=== PATIENT | male | born 1965 | race Caucasian/White ===

== ENCOUNTER 2017-07-02 21:32 | Emergency (ER) | payer MEDICARE, OTHER ==
[2017-07-02 21:38] VITALS: RESP 20; TEMP 98.3
--- NOTE | 2017-07-02 22:59 | ED ---
URI HPI - General Chief Complaint: Fever Stated Complaint: Eye Problem Time Seen by Provider: 07/02/17 21:41 Source: patient Mode of arrival: ambulatory Limitations: no limitations - History of Present Illness Initial Comments: Patient presents with nasal congestion. Patient states she's experienced sinus pressure for the past 5 days. Patient states he is taking nasal decongestion however he ran out of it and pressure worsened. States 2 days ago he felt pressure behind his right eye, was able to find some nasal decongestions at home which he took which relieved the pressure behind his eye. States today his noticed swelling and a spot near his eyebrow and in the medial corner of his right eye. Patient denies any eye pain at this time. Denies pain with eye movements. Denies changes in vision. Patient does note he had a fever of 102 2 days ago that resolved with motrin. Patient states he came in the ER tonight because was concerned about the small areas of swelling near his R eye. Patient denies sore throat, shortness breath, cough, chest pain, palpitations. Patient's blood pressure elevated on arrival, states he took his nightly dose of metoprolol and lisinopril. MD Complaint: rhinorrhea, nasal congestion, sinus pain - Related Data Home Medications Medication Instructions Recorded Confirmed Metoprolol Tartrate [Lopressor] 50 mg PO BID 03/15/14 07/02/17 Mesalamine [Delzicol] 800 mg PO TID 04/15/14 07/02/17 ALPRAZolam [Xanax] 2 mg PO TID PRN 07/02/17 07/02/17 Lisinopril [Zestril] 10 mg PO HS 07/02/17 07/02/17 Previous Rx's Medication Instructions Recorded Azithromycin 250 mg PO DAILY 5 Days #6 tablet 07/02/17 Oxymetazoline 0.05% Nasl [place] 2 spray EA NOSTRIL BID PRN #1 07/02/17 [Afrin 0.05% Nasal [place]] bottle Pseudoephedrine [Sudafed] 30 mg PO Q6H PRN 5 Days #20 tablet 07/02/17 Allergies Allergy/AdvReac Type Severity Reaction Status Date / Time Penicillins Allergy Rash/Hives Verified 07/02/17 22:00 Review of Systems ROS Statement: Those systems with pertinent positive or pertinent negative responses have been documented in the HPI. ROS Other: All systems not noted in ROS Statement are negative. Constitutional: Reports: fever. Denies: chills, weakness Eyes: Reports: other ("swelling in corner of eye"). Denies: eye pain, eye discharge, vision change ENT: Reports: congestion, other (Rhinorrhea and congestion). Denies: ear pain, throat pain, dental pain, hearing loss Respiratory: Denies: cough, dyspnea, wheezes, stridor Cardiovascular: Denies: chest pain, palpitations Endocrine: Denies: fatigue Gastrointestinal: Denies: abdominal pain, nausea, vomiting Genitourinary: Denies: frequency Musculoskeletal: Denies: back pain Skin: Denies: rash Neurological: Reports: headache (2 days ago, resolved). Denies: confusion Past Medical History Past Medical History: Asthma, Hypertension, Thyroid Disorder Additional Past Medical History / Comment(s): CROHN'S, MASS ON BASE OF TONGUE, thyroid nodule right side History of Any Multi-Drug Resistant Organisms: None Reported Past Surgical History: Bowel Resection, Cholecystectomy, Tonsillectomy Additional Past Surgical History / Comment(s): BOWEL RESCECTION W/COLOSTOMY AND LATER REVERSAL R/T CROHN'S VASECTOMY, 2003 tonsillectomy Past Anesthesia/Blood Transfusion Reactions: No Reported Reaction Additional Past Anesthesia/Blood Transfusion Reaction / Comment(s): difficult intubation Past Psychological History: Anxiety Smoking Status: Never smoker Past Alcohol Use History: None Reported Past Drug Use History: None Reported - Past Family History Mother Family Medical History: No Reported History General Exam - General Exam Comments Initial Comments: Sitting up in bed. No acute distress. Calm, pleasant, talkative, smiling. Well appearing. Does not appear in pain. Limitations: no limitations General appearance: alert, in no apparent distress Head exam: Present: atraumatic, normocephalic, normal inspection Eye exam: Present: PERRL, EOMI, other (0.5cm diameter erythema and minimal swelling around base of medial right eyebrow hairs, was central mckeon and scab. Minimal edema in area of canaliculus of R eye, no erythema or drainage. Full eye movements without pain bilaterally. No proptosis. No periorbital erythema. Conjunctiva clear bilaterally. ). Absent: scleral icterus, conjunctival injection, periorbital tenderness ENT exam: Present: normal oropharynx, mucous membranes moist, TM's normal bilaterally, other (No tenderness palpation of the sinuses.) Neck exam: Present: normal inspection, full ROM. Absent: tenderness, meningismus, lymphadenopathy Respiratory exam: Present: normal lung sounds bilaterally. Absent: respiratory distress, wheezes, rales, rhonchi, stridor Cardiovascular Exam: Present: regular rate, normal rhythm GI/Abdominal exam: Present: soft. Absent: distended, tenderness, guarding, rebound Extremities exam: Present: normal inspection Neurological exam: Present: alert, oriented X3, other (Cranial nerves II through XII grossly intact.) Psychiatric exam: Present: normal affect, normal mood Skin exam: Present: warm, dry, intact, normal color Course Vital Signs 07/02/17 21:35 Temperature 98.3 F Pulse Rate 96 Respiratory 20 Rate Blood Pressure 205/96 O2 Sat by Pulse 96 Oximetry Medical Decision Making - Medical Decision Making Patient afebrile on arrival. No antipyretics today. Symptoms are right eye may represent dacryocystitis versus Canaliculitis, no signs of overt infection at this time. Discussed monitoring of symptoms, warm compresses and gentle massage with patient. Patient states nasal congestion and headache resolved with home nasal decongestions. Patient to continue [id number] nasal decongestions, Rx Afrin and Sudafed given. We'll give prescription Azithromycin for possible sinusitis. Follow-up primary care physician. Return to ER for new or worsening symptoms. Patient understands and agrees. HTN improving at time of discharge. Patient has no signs or symptoms of stroke on exam. Discussed return to ER immediately if any signs or symptoms of stroke occur, patient understands and agrees. We'll discharge home at this time. - Lab Data Lab Results 07/02/17 Range/Units 22:50 Influenza Type A RNA Not Detected (Not Detectd) Influenza Type B (PCR) Not Detected (Not Detectd) Disposition Clinical Impression: Acute canaliculitis, Sinusitis Disposition: HOME SELF-CARE Condition: Good Instructions: Fever in Adults (ED), Sinusitis (ED) Additional Instructions: Apply warm compresses and gentle massage to the medial right eye duct. Follow primary care physician 1-2 days. Return to ER for new or worsening symptoms. Prescriptions: Azithromycin 250 mg PO DAILY 5 Days #6 tablet Oxymetazoline 0.05% Nasl [place] [Afrin 0.05% Nasal [place]] 2 spray EA NOSTRIL BID PRN #1 bottle PRN Reason: Nasal Congestion Pseudoephedrine [Sudafed] 30 mg PO Q6H PRN 5 Days #20 tablet PRN Reason: Nasal Congestion Referrals: Jeanmarie Reid DO [Primary Care Provider] - 1-2 days
[2017-07-02 23:39] VITALS: BP 156/89; PULSE 86
== END 2017-07-02 23:39 | disposition home or self-care (01) ==
LOC: EC 21:32
DX: H04.331 Acute lacrimal canaliculitis of right lacrimal passage (principal); J32.9 Chronic sinusitis, unspecified; I10 Essential (primary) hypertension; Z88.0 Allergy status to penicillin; Z79.899 Other long term (current) drug therapy
CPT/HCPCS: 87502; 99283

== ENCOUNTER 2017-08-08 01:48 | Emergency (ER) | payer MEDICARE, OTHER ==
[2017-08-08 01:54] VITALS: TEMP 97.6
[2017-08-08] MEDS ORDERED: KETOROLAC 30 MG/ML 1 ML VIAL IVP STA (02:09)
[2017-08-08] MEDS ORDERED: ONDANSETRON 4 MG/2 ML VIAL IVP STA (02:09)
[2017-08-08] MEDS ORDERED: SODIUM CHLORIDE 0.9% 1,000 ML IV STA ×2 (02:09)
[2017-08-08] MEDS ORDERED: MORPHINE SULFATE 4 MG/ML SYRINGE IV STA (02:09)
[2017-08-08] MEDS ORDERED: RX INFO: IV CONTRAST WAS GIVEN 1 EACH MISC MISCELLANE PRN (02:10)
[2017-08-08] MEDS ORDERED: MORPHINE SULFATE/PF 10MG/10ML VL ONE (02:14)
[2017-08-08] MEDS ORDERED: MORPHINE SULFATE/PF 10MG/10ML VL IVP STA ×2 (02:31→03:40)
[2017-08-08 02:48] LABS: Basophils # (A) 0.1 k/uL (0-0.2); Basophils % (A) 1 %; Eosinophils # (A) 0.1 k/uL (0-0.7); Eosinophils % (A) 2 %; HCT 40.6 % (39.0-53.0); HGB 14.3 gm/dL (13.0-17.5); Lymphocytes # (A) 1.7 k/uL (1.0-4.8); Lymphocytes % (A) 20 %; MCH 30.9 pg (25.0-35.0); MCHC 35.4 g/dL (31.0-37.0); MCV 87.5 fL (80.0-100.0); Mean Platelet Volume 6.4; Monocytes # (A) 0.3 k/uL (0-1.0); Monocytes % (A) 4 %; Neutrophils % (A) 71 %; Platelet Count 228 k/uL (150-450); RBC 4.64 m/uL (4.30-5.90); RDW 13.9 % (11.5-15.5); WBC 8.5 k/uL (3.8-10.6)
--- NOTE | 2017-08-08 02:48 | ED ---
Back Pain HPI - General Chief Complaint: Back Pain/Injury Stated Complaint: TAVARES, back pain Time Seen by Provider: 08/08/17 02:01 Source: patient, RN notes reviewed, old records reviewed Limitations: physical limitation - History of Present Illness Initial Comments: Patient is a 52-year-old male chief complaint of left sided back pain set an onset. Patient reports that he was sleeping in his chair when it said in pain woke come up. He states that he said he has had kidney stones in the past. He doesn't remember this feels like a previous kidney stone. he reports his urine is been fine. Denies any nausea or vomiting. He states that he can use new have a pain radiate to the stomach. - Related Data Home Medications Medication Instructions Recorded Confirmed Metoprolol Tartrate [Lopressor] 50 mg PO BID 03/15/14 07/02/17 Mesalamine [Delzicol] 800 mg PO TID 04/15/14 07/02/17 ALPRAZolam [Xanax] 2 mg PO TID PRN 07/02/17 07/02/17 Lisinopril [Zestril] 10 mg PO HS 07/02/17 07/02/17 Previous Rx's Medication Instructions Recorded Azithromycin 250 mg PO DAILY 5 Days #6 tablet 07/02/17 Oxymetazoline 0.05% Nasl [place] 2 spray EA NOSTRIL BID PRN #1 07/02/17 [Afrin 0.05% Nasal [place]] bottle Pseudoephedrine [Sudafed] 30 mg PO Q6H PRN 5 Days #20 tablet 07/02/17 HYDROcodone/APAP 10-325MG [[place] 1 tab PO Q6H PRN #15 tab 08/08/17 10-325] Ketorolac [Toradol] 10 mg PO Q6HR #15 tab 08/08/17 Ondansetron [Zofran] 4 mg PO Q8HR PRN #20 tab 08/08/17 Tamsulosin [Flomax] 0.4 mg PO DAILY #10 cap 08/08/17 Allergies Allergy/AdvReac Type Severity Reaction Status Date / Time Penicillins Allergy Rash/Hives Verified 08/08/17 01:54 Review of Systems ROS Statement: Those systems with pertinent positive or pertinent negative responses have been documented in the HPI. ROS Other: All systems not noted in ROS Statement are negative. Past Medical History Past Medical History: Asthma, Hypertension, Thyroid Disorder Additional Past Medical History / Comment(s): CROHN'S, MASS ON BASE OF TONGUE, thyroid nodule right side History of Any Multi-Drug Resistant Organisms: None Reported Past Surgical History: Bowel Resection, Cholecystectomy, Tonsillectomy Additional Past Surgical History / Comment(s): BOWEL RESCECTION W/COLOSTOMY AND LATER REVERSAL R/T CROHN'S VASECTOMY, 2003 tonsillectomy Past Anesthesia/Blood Transfusion Reactions: No Reported Reaction Additional Past Anesthesia/Blood Transfusion Reaction / Comment(s): difficult intubation Past Psychological History: Anxiety Smoking Status: Never smoker Past Alcohol Use History: None Reported Past Drug Use History: None Reported - Past Family History Mother Family Medical History: No Reported History General Exam - General Exam Comments Initial Comments: This is a 52 year old male. Moderate distress and discomfort. Limitations: physical limitation General appearance: alert, in no apparent distress Head exam: Present: atraumatic, normocephalic, normal inspection Eye exam: Present: normal appearance, PERRL, EOMI. Absent: scleral icterus, conjunctival injection, periorbital swelling ENT exam: Present: normal exam, mucous membranes moist Neck exam: Present: normal inspection. Absent: tenderness, meningismus, lymphadenopathy Respiratory exam: Present: normal lung sounds bilaterally. Absent: respiratory distress, wheezes, rales, rhonchi, stridor Cardiovascular Exam: Present: regular rate, normal rhythm, normal heart sounds. Absent: systolic murmur, diastolic murmur, rubs, gallop, clicks GI/Abdominal exam: Present: soft, tenderness (right CVA tenderness), normal bowel sounds. Absent: distended, guarding, rebound, rigid Extremities exam: Present: normal inspection, full ROM, normal capillary refill. Absent: tenderness, pedal edema, joint swelling, calf tenderness Back exam: Present: normal inspection Neurological exam: Present: alert, oriented X3, CN II-XII intact Psychiatric exam: Present: normal affect, normal mood Skin exam: Present: warm, dry, intact, normal color. Absent: rash Course Vital Signs 08/08/17 08/08/17 08/08/17 01:51 04:00 04:32 Temperature 97.6 F Pulse Rate 89 68 Respiratory 22 16 18 Rate Blood Pressure 196/107 161/96 O2 Sat by Pulse 97 98 Oximetry Medical Decision Making - Medical Decision Making Patient is a 52 year old male with sudden onset of left back pain. Patient arrived hypertensive. Patient was given IV fluids and labs obtained. UA is positive for RBC. No signs of infection. Evidence of a left sided distal obstruction ureteral stone. Patient was feeling better after pain medication. Will start patient on treatment for ureteral stone. All questions answered and return parameters discused. - Lab Data Result diagrams: 08/08/17 02:30 08/08/17 02:30 Lab Results 08/08/17 08/08/17 08/08/17 Range/Units 02:30 02:30 02:30 WBC 8.5 (3.8-10.6) k/uL RBC 4.64 (4.30-5.90) m/uL Hgb 14.3 (13.0-17.5) gm/dL Hct 40.6 (39.0-53.0) % MCV 87.5 (80.0-100.0) fL MCH 30.9 (25.0-35.0) pg MCHC 35.4 (31.0-37.0) g/dL RDW 13.9 (11.5-15.5) % Plt Count 228 (150-450) k/uL Neutrophils % 71 % Lymphocytes % 20 % Monocytes % 4 % Eosinophils % 2 % Basophils % 1 % Neutrophils # 6.0 (1.3-7.7) k/uL Lymphocytes # 1.7 (1.0-4.8) k/uL Monocytes # 0.3 (0-1.0) k/uL Eosinophils # 0.1 (0-0.7) k/uL Basophils # 0.1 (0-0.2) k/uL Sodium 146 H (137-145) mmol/L Potassium 4.6 (3.5-5.1) mmol/L Chloride 111 H (98-107) mmol/L Carbon Dioxide 20 L (22-30) mmol/L Anion Gap 15 mmol/L BUN 11 (9-20) mg/dL Creatinine 1.10 (0.66-1.25) mg/dL Est GFR (CKD-EPI)AfAm >90 (>60 ml/min/1.73 sqM) Est GFR (CKD-EPI)NonAf 78 (>60 ml/min/1.73 sqM) Glucose 131 H (74-99) mg/dL Calcium 9.9 (8.4-10.2) mg/dL Total Bilirubin 0.5 (0.2-1.3) mg/dL AST 26 (17-59) U/L ALT 51 (21-72) U/L Alkaline Phosphatase 52 (38-126) U/L Total Creatine Kinase 98 (55-170) U/L CK-MB (CK-2) 0.6 (0.0-2.4) ng/mL CK-MB (CK-2) Rel Index 0.6 Troponin I <0.012 (0.000-0.034) ng/mL Total Protein 7.3 (6.3-8.2) g/dL Albumin 4.4 (3.5-5.0) g/dL Amylase 42 (30-110) U/L Lipase 133 (23-300) U/L Urine Color Urine Appearance (Clear) Urine pH (5.0-8.0) Ur Specific [place] (1.001-1.035) Urine Protein (Negative) Urine Glucose (UA) (Negative) Urine Ketones (Negative) Urine Blood (Negative) Urine Nitrite (Negative) Urine Bilirubin (Negative) Urine Urobilinogen (<2.0) mg/dL Ur Leukocyte Esterase (Negative) Urine RBC (0-5) /hpf Urine WBC (0-5) /hpf Ur Squamous Epith Cells (0-4) /hpf Hyaline Casts (0-2) /lpf Urine Mucus (None) /hpf 08/08/18 Range/Units 03:46 WBC (3.8-10.6) k/uL RBC (4.30-5.90) m/uL Hgb (13.0-17.5) gm/dL Hct (39.0-53.0) % MCV (80.0-100.0) fL MCH (25.0-35.0) pg MCHC (31.0-37.0) g/dL RDW (11.5-15.5) % Plt Count (150-450) k/uL Neutrophils % % Lymphocytes % % Monocytes % % Eosinophils % % Basophils % % Neutrophils # (1.3-7.7) k/uL Lymphocytes # (1.0-4.8) k/uL Monocytes # (0-1.0) k/uL Eosinophils # (0-0.7) k/uL Basophils # (0-0.2) k/uL Sodium (137-145) mmol/L Potassium (3.5-5.1) mmol/L Chloride (98-107) mmol/L Carbon Dioxide (22-30) mmol/L Anion Gap mmol/L BUN (9-20) mg/dL Creatinine (0.66-1.25) mg/dL Est GFR (CKD-EPI)AfAm (>60 ml/min/1.73 sqM) Est GFR (CKD-EPI)NonAf (>60 ml/min/1.73 sqM) Glucose (74-99) mg/dL Calcium (8.4-10.2) mg/dL Total Bilirubin (0.2-1.3) mg/dL AST (17-59) U/L ALT (21-72) U/L Alkaline Phosphatase (38-126) U/L Total Creatine Kinase (55-170) U/L CK-MB (CK-2) (0.0-2.4) ng/mL CK-MB (CK-2) Rel Index Troponin I (0.000-0.034) ng/mL Total Protein (6.3-8.2) g/dL Albumin (3.5-5.0) g/dL Amylase (30-110) U/L Lipase (23-300) U/L Urine Color Yellow Urine Appearance Clear (Clear) Urine pH 5.5 (5.0-8.0) Ur Specific [place] 1.038 H (1.001-1.035) Urine Protein Negative (Negative) Urine Glucose (UA) Negative (Negative) Urine Ketones Negative (Negative) Urine Blood Large H (Negative) Urine Nitrite Negative (Negative) Urine Bilirubin Negative (Negative) Urine Urobilinogen <2.0 (<2.0) mg/dL Ur Leukocyte Esterase Negative (Negative) Urine RBC >182 H (0-5) /hpf Urine WBC 1 (0-5) /hpf Ur Squamous Epith Cells <1 (0-4) /hpf Hyaline Casts 3 H (0-2) /lpf Urine Mucus Rare H (None) /hpf - Radiology Data Radiology results: report reviewed Small stone in distal left ureter with left upper collecting system obstruction and mild hydronephrosis and hydrometer. This appears new compare to old CT scan. Disposition Clinical Impression: Calculus of distal left ureter, Hypertension Disposition: HOME SELF-CARE Condition: Good Instructions: Renal Colic (ED), Hydronephrosis (ED) Additional Instructions: Patient denies rest, increase fluids. Follow-up with urology. Make sure they take the medications as prescribed. Return to the emergency department if any alarming signs or symptoms occur. Prescriptions: HYDROcodone/APAP 10-325MG [[place] 10-325] 1 tab PO Q6H PRN #15 tab PRN Reason: Pain Ketorolac [Toradol] 10 mg PO Q6HR #15 tab Ondansetron [Zofran] 4 mg PO Q8HR PRN #20 tab PRN Reason: Nausea Tamsulosin [Flomax] 0.4 mg PO DAILY #10 cap Referrals: Jeanmarie Reid DO [Primary Care Provider] - 1-2 days Torres Acharya MD [STAFF PHYSICIAN] - 1-2 days Time of Disposition: 03:23
[2017-08-08 03:06] LABS: ALT 51 U/L (21-72); AST 26 U/L (17-59); Albumin 4.4 g/dL (3.5-5.0); Alkaline Phosphatase 52 U/L (38-126); Amylase 42 U/L (30-110); Anion Gap 15 mmol/L; Blood Urea Nitrogen 11 mg/dL (9-20); Calcium 9.9 mg/dL (8.4-10.2); Carbon Dioxide 20 mmol/L (22-30); Chloride 111 mmol/L (98-107); Glucose 131 mg/dL (74-99); Lipase 133 U/L (23-300); Potassium 4.6 mmol/L (3.5-5.1); Sodium 146 mmol/L (137-145); Total Bilirubin 0.5 mg/dL (0.2-1.3); Total Protein 7.3 g/dL (6.3-8.2)
[2017-08-08 03:10] LABS: Creatine Kinase 98 U/L (55-170)
--- NOTE | 2017-08-08 03:11 | CT ---
EXAMINATION TYPE: CT abdomen pelvis w con DATE OF EXAM: 08/08/2017 COMPARISON: 04/25/2017 HISTORY: Prior on synaspe, right sided low back and flank pain, history of Crohn's, renal stones, his tory of bowel resection with colostomy and reversal, IV only CT DLP: 3082.20 mGycm Automated exposure control for dose reduction was used. TECHNIQUE: Helical acquisition of images was performed from the lung bases through the pelvis. CONTRAST: Performed without Oral Contrast and with IV Contrast, patient injected with 100 mL of Isovue 300. FINDINGS: Lung bases are clear. There is no pleural effusion. There is no pericardial effusion. Liver spleen pancreas appear normal. Bile ducts are not dilated. There are clips from cholecystectomy . There is no adrenal mass. Kidneys show normal contrast opacification. There is left side mild hydrone phrosis and hydroureter. There is a 4 mm calculus in the distal left ureter. Right kidney appears nor mal. There is no retroperitoneal adenopathy. There is no ascites. I see no intestinal wall thickening. The re are no dilated loops. Bladder distends smoothly. There is no sign of appendicitis. I see no bony d estructive process. IMPRESSION: THERE IS A SMALL STONE IN THE DISTAL LEFT URETER WITH LEFT UPPER COLLECTING SYSTEM OBSTRUCTION AND ME LD HYDRONEPHROSIS AND HYDROURETER. THIS APPEARS NEW COMPARED TO OLD CT SCAN.
[2017-08-08] MEDS ORDERED: TAMSULOSIN 0.4 MG CAP.ER.24H PO STA (03:12)
[2017-08-08 03:24] LABS: Creatine Kinase MB 0.6 ng/mL (0.0-2.4); Troponin I <0.012 ng/mL (0.000-0.034)
[2017-08-08] MEDS ORDERED: MORPHINE SULFATE 4 MG/ML SYRINGE IVP STA (03:34)
[2017-08-08 04:02] VITALS: BP 161/96
[2017-08-08 04:09] LABS: Appearance,Urine Clear (Clear); Bilirubin,Urine Negative (Negative); Blood,Urine Large (Negative); Color,Urine Yellow; Glucose,Urine (UA) Negative (Negative); Hyaline Casts,Urine 3 /lpf (0-2); Ketones,Urine Negative (Negative); Leukocyte Esterase,Urine Negative (Negative); Mucus,Urine Rare /hpf; Nitrite,Urine Negative (Negative); PH, Urine 5.5 (5.0-8.0); Protein,Urine Negative (Negative); RBC,Urine >182 /hpf (0-5); Specific Gravity,Urine 1.038 (1.001-1.035); Squamous Epithelial Cell,Urine <1 /hpf (0-4); Urobilinogen,Urine <2.0 mg/dL (<2.0); WBC,Urine 1 /hpf (0-5)
[2017-08-08] MEDS ORDERED: ACET/COD 300 MG/30 MG STARTER PACK 6 TAB BTL PO STA (04:11)
[2017-08-08] MEDS ORDERED: ONDANSETRON 4 MG ODT STARTER PACK 2 TAB BTL PO STA (04:11)
[2017-08-08 04:33] VITALS: PULSE 68; RESP 18
== END 2017-08-08 04:32 | disposition home or self-care (01) ==
LOC: EC 01:48
DX: N20.1 Calculus of ureter (principal); I10 Essential (primary) hypertension; Z79.899 Other long term (current) drug therapy; Z88.0 Allergy status to penicillin; Z90.49 Acquired absence of other specified parts of digestive tract; Z53.8 Procedure and treatment not carried out for other reasons
CPT/HCPCS: 36415; 80053; 82150; 82550; 82553; 83690; 84484; 85025; 81001; 74177; 99284; 96374; 96375 ×2; 96376; 96361 ×2; J2270 ×2; J2405; J1885; S0119; Q9967

== ENCOUNTER → 2017-10-06 | Outpatient (CLI) | payer MEDICARE, OTHER ==
--- NOTE | 2017-10-06 10:39 | US ---
EXAMINATION TYPE: US thyroid st tissue head/neck DATE OF EXAM: 10/06/2017 COMPARISON: 03/20/2017 CLINICAL HISTORY: Thyroid nodule E04.1. GLAND SIZE: Right Lobe: 6.4 x 2.6 x 3.0 cm Overall Parenchyma: homogenous Left Lobe: 5.9 x 2.3 x 2.5 cm Overall Parenchyma: homogeneous Isthmus Thickness: 0.7 cm NODULES RIGHT: # of nodules measured on right: 2 1. 1.8 X 1.5 x 1.9 cm isoechoic solid nodule at the mid pole with well-defined margins; . This nod ule is taller than wide and shows intranodular vascularity. Prior size: 1.8 x 1.6 x 1.7 cm 2. 1.0 X 1.0 x 1.0 cm hypoechoic solid nodule at the lower pole with well-defined margins; . This n odule is wider than tall and shows no intranodular vascularity. Prior size: 1.1 x 0.9 x 0.9 cm LEFT: # of nodules measured on left: 0 ISTHMUS: # of nodules measured in the isthmus: 0 Bilateral neck scanned, no evidence of lymphadenopathy. Nodules as described. Only two nodules seen right lobe instead of three on last scan. IMPRESSION: Stable right lobe thyroid nodules
== END | disposition home or self-care (01) ==
LOC: RADUSWWP 06:55
PROVIDERS: ATTEND Otolaryngology
DX: E04.2 Nontoxic multinodular goiter (principal)
CPT/HCPCS: 76536

== ENCOUNTER → 2018-04-23 | Outpatient (CLI) | payer MEDICARE, OTHER ==
--- NOTE | 2018-04-23 12:45 | US ---
EXAMINATION TYPE: US thyroid st tissue head/neck DATE OF EXAM: 04/23/2018 COMPARISON: 10/06/2017 and 03/20/2017 CLINICAL HISTORY: E04.1 Thyroid Nodule. GLAND SIZE: Right Lobe: 6.8 x 2.5 x 3.1 cm Overall Parenchyma: heterogenous Left Lobe: 5.5 x 2.1 x 2.3 cm Overall Parenchyma: heterogeneous Isthmus Thickness: 0.8 cm NODULES RIGHT: # of nodules measured on right: 2 1. 1.7 x 1.7 x 1.6 cm isoechoic solid nodule at the mid pole with well-defined margins. This nodul e is wider than tall and shows no intranodular vascularity. Prior size: 1.8 x 1.5 x 1.9 cm 2. 1.4 X 1.0 x 1.2 cm hypoechoic mixed nodule at the lower pole with well-defined margins. This nod ule is wider than tall and shows no intranodular vascularity. Prior size:1.0 x 1.0 x 1.0 cm LEFT: # of nodules measured on left: 0 ISTHMUS: # of nodules measured in the isthmus: 0 Bilateral neck scanned, no evidence of lymphadenopathy. IMPRESSION: Similar size of the thyroid nodules in comparison to the prior exams with the largest measuring up to 1.7 cm in an overall enlarged thyroid gland. Continued surveillance is recommended.
== END | disposition home or self-care (01) ==
LOC: RADUSWWP 11:43
PROVIDERS: ATTEND Otolaryngology
DX: E04.2 Nontoxic multinodular goiter (principal)
CPT/HCPCS: 76536

== ENCOUNTER → 2018-10-28 | Outpatient (CLI) | payer MEDICARE, OTHER ==
--- NOTE | 2018-10-28 15:36 | US ---
EXAMINATION TYPE: US thyroid st tissue head/neck DATE OF EXAM: 10/28/2018 COMPARISON: 04/23/2018 CLINICAL HISTORY: E04.1 THYROID NODULE. GLAND SIZE: Right Lobe: 6.3 x 2.3 x 3.0 cm Overall Parenchyma: homogenous Left Lobe: 5.5 x 2.1 x 2.2 cm Overall Parenchyma: homogeneous Isthmus Thickness: 0.7 cm NODULES RIGHT: # of nodules measured on right: 2 1. 1.9 X 1.5 x 2.1 cm hypoechoic solid nodule at the mid pole with well-defined margins. This nodu le is wider than tall and shows intranodular vascularity. Prior size: 1.7 x 1.7 x 1.6 cm 2. 1.4 X 1.0 x 1.2 cm hypoechoic mixed nodule at the lower pole with well-defined margins. This nod ule is wider than tall and shows no intranodular vascularity. Prior size: 1.4 x 1.0 x 1.2 cm LEFT: # of nodules measured on left: 0 ISTHMUS: # of nodules measured in the isthmus: 0 Bilateral neck scanned, no evidence of lymphadenopathy. IMPRESSION: Stable thyromegaly and multinodular thyroid changes.
== END | disposition home or self-care (01) ==
LOC: RADUSWWP 14:53
PROVIDERS: ATTEND Otolaryngology
DX: E04.2 Nontoxic multinodular goiter (principal)
CPT/HCPCS: 76536

== ENCOUNTER 2019-09-03 11:28 | Emergency (ER) | payer MEDICARE, OTHER ==
[2019-09-03 11:38] VITALS: RESP 18; TEMP 98.1
[2019-09-03] MEDS ORDERED: SODIUM CHLORIDE 0.9% 1,000 ML IV STA (12:18)
--- NOTE | 2019-09-03 12:36 | ED ---
General Adult HPI - General Chief complaint: Recheck/Abnormal Lab/Rx Stated complaint: poss med reaction Time Seen by Provider: 09/03/19 12:02 Source: patient Mode of arrival: ambulatory Limitations: no limitations - History of Present Illness Initial comments: Patient is a 54-year-old male, with history of anxiety, presenting to the emergency department with multiple complaints. Patient states the symptoms started approximately 1-2 weeks ago with a scratchy throat as well as an upset stomach. Patient states he coughed a little and noticed a small amount of blood in his sputum and got concerned. Patient states he called his PCP, Dr. Jones, who called him a prescription for Cipro. Patient stated taking Cipro a few days and started feeling better. Patient states then he started having dryness of his mouth as well as an upset stomach. Patient has history of Crohn's. Patient states he has been burping a lot and his stomach has been rumbling a lot. He denies any abdominal pain, nausea, vomiting. He is having diarrhea but states this is normal for him. Patient states he is getting concern is getting really dehydrated. Patient also stated that his very healthy cat all of a sudden developed organ failure and in the last few days and is concerned that he is having weird symptoms as well. Patient states she's been having hard time sleeping secondary to his anxiety and his GERD symptoms. Patient denies chest pain, shortness of breath, cough, headache, dizziness. He denies fever or chills. He has no other complaints at this time. - Related Data Home Medications Medication Instructions Recorded Confirmed Metoprolol Tartrate [Lopressor] 50 mg PO BID 03/15/14 07/02/17 Mesalamine [Delzicol] 800 mg PO TID 04/15/14 07/02/17 ALPRAZolam [Xanax] 2 mg PO TID PRN 07/02/17 07/02/17 Lisinopril [Zestril] 10 mg PO HS 07/02/17 07/02/17 Previous Rx's Medication Instructions Recorded Azithromycin 250 mg PO DAILY 5 Days #6 tablet 07/02/17 Oxymetazoline 0.05% Nasl [place] 2 spray EA NOSTRIL BID PRN #1 07/02/17 [Afrin 0.05% Nasal [place]] bottle Pseudoephedrine [Sudafed] 30 mg PO Q6H PRN 5 Days #20 tablet 07/02/17 HYDROcodone/APAP 10-325MG [[place] 1 tab PO Q6H PRN #15 tab 08/08/17 10-325] Ketorolac [Toradol] 10 mg PO Q6HR #15 tab 08/08/17 Ondansetron [Zofran] 4 mg PO Q8HR PRN #20 tab 08/08/17 Tamsulosin [Flomax] 0.4 mg PO DAILY #10 cap 08/08/17 Allergies Allergy/AdvReac Type Severity Reaction Status Date / Time Penicillins Allergy Rash/Hives Verified 09/03/19 11:38 Review of Systems ROS Statement: Those systems with pertinent positive or pertinent negative responses have been documented in the HPI. ROS Other: All systems not noted in ROS Statement are negative. Past Medical History Past Medical History: Asthma, Hypertension, Thyroid Disorder Additional Past Medical History / Comment(s): CROHN'S, MASS ON BASE OF TONGUE, thyroid nodule right side History of Any Multi-Drug Resistant Organisms: None Reported Past Surgical History: Bowel Resection, Cholecystectomy, Tonsillectomy Additional Past Surgical History / Comment(s): BOWEL RESCECTION W/COLOSTOMY AND LATER REVERSAL R/T CROHN'S VASECTOMY, 2003 tonsillectomy Past Anesthesia/Blood Transfusion Reactions: No Reported Reaction Additional Past Anesthesia/Blood Transfusion Reaction / Comment(s): difficult intubation Past Psychological History: Anxiety Smoking Status: Never smoker Past Alcohol Use History: None Reported Past Drug Use History: None Reported - Past Family History Mother Family Medical History: No Reported History General Exam - General Exam Comments Initial Comments: GENERAL: Patient appears anxious, in no acute distress. HEAD: Atraumatic, normocephalic. EYES: Pupils equal round and reactive to light, extraocular movements intact, sclera anicteric, conjunctiva are normal. ENT: TMs normal, nares patent, oropharynx clear without exudates. Moist mucous me mbranes. NECK: Normal range of motion, supple without lymphadenopathy or JVD. LUNGS: Breath sounds clear to auscultation bilaterally and equal. No wheezes rales or rhonchi. HEART: Regular rate and rhythm without murmurs, rubs or gallops. ABDOMEN: Soft, nontender, normoactive bowel sounds. No guarding, no rebound. No masses appreciated. : Deferred EXTREMITIES: Normal range of motion, no pitting or edema. No clubbing or cyanosis. NEUROLOGICAL: Normal speech, normal gait. PSYCH: Normal mood, normal affect. SKIN: Warm, Dry, normal turgor, no rashes or lesions noted. Limitations: no limitations Course Vital Signs 09/03/19 11:33 Temperature 98.1 F Pulse Rate 93 Respiratory 18 Rate Blood Pressure 197/124 O2 Sat by Pulse 98 Oximetry Medical Decision Making - Medical Decision Making Patient is 54-year-old male, history of anxiety, presenting with multiple complaints including sore throat, diarrhea, signs of dehydration. Patient arrived hypertensive but also very anxious. Rest of vitals are normal. No history of fever, chills, cough, shortness of breath. His exam is unremarkable. Lab work shows no acute abnormalities. Patient was given fluids and Zofran. I discussed with patient that his symptoms could be related to a viral illness. He is stable for discharge and he is in agreement with this plan of care. He will follow up with his PCP as needed. Return parameters were discussed with the patient and he verbalized understanding. Case discussed with Dr. Murry. - Lab Data Result diagrams: 09/03/19 12:35 09/03/19 12:35 Lab Results 09/03/19 09/03/19 Range/Units 12:35 12:35 WBC 8.2 (3.8-10.6) k/uL RBC 4.57 (4.30-5.90) m/uL Hgb 14.1 (13.0-17.5) gm/dL Hct 41.5 (39.0-53.0) % MCV 90.7 (80.0-100.0) fL MCH 30.7 (25.0-35.0) pg MCHC 33.9 (31.0-37.0) g/dL RDW 13.4 (11.5-15.5) % Plt Count 206 (150-450) k/uL Neutrophils % 75 % Lymphocytes % 17 % Monocytes % 4 % Eosinophils % 2 % Basophils % 1 % Neutrophils # 6.2 (1.3-7.7) k/uL Lymphocytes # 1.4 (1.0-4.8) k/uL Monocytes # 0.3 (0-1.0) k/uL Eosinophils # 0.2 (0-0.7) k/uL Basophils # 0.1 (0-0.2) k/uL Sodium 141 (137-145) mmol/L Potassium 3.6 (3.5-5.1) mmol/L Chloride 108 H (98-107) mmol/L Carbon Dioxide 24 (22-30) mmol/L Anion Gap 9 mmol/L BUN 9 (9-20) mg/dL Creatinine 0.79 (0.66-1.25) mg/dL Est GFR (CKD-EPI)AfAm >90 (>60 ml/min/1.73 sqM) Est GFR (CKD-EPI)NonAf >90 (>60 ml/min/1.73 sqM) Glucose 101 H (74-99) mg/dL Calcium 9.7 (8.4-10.2) mg/dL Total Bilirubin 0.9 (0.2-1.3) mg/dL AST 33 (17-59) U/L ALT 47 (4-49) U/L Alkaline Phosphatase 54 (38-126) U/L Total Protein 7.5 (6.3-8.2) g/dL Albumin 4.6 (3.5-5.0) g/dL Disposition Clinical Impression: Dehydration, History of Crohn's disease, Diarrhea Disposition: HOME SELF-CARE Condition: Stable Instructions (If sedation given, give patient instructions): Dehydration (ED) Additional Instructions: Please return to the Emergency Department if symptoms worsen or any other concerns. Follow-up with PCP as needed. Is patient prescribed a controlled substance at d/c from ED?: No Referrals: Jeanmarie Reid DO [Primary Care Provider] - 1-2 days
[2019-09-03] MEDS ORDERED: ONDANSETRON 4 MG/2 ML VIAL IVP STA (12:42)
[2019-09-03 12:46] LABS: Basophils # (A) 0.1 k/uL (0-0.2); Basophils % (A) 1 %; Eosinophils # (A) 0.2 k/uL (0-0.7); Eosinophils % (A) 2 %; HCT 41.5 % (39.0-53.0); HGB 14.1 gm/dL (13.0-17.5); Lymphocytes # (A) 1.4 k/uL (1.0-4.8); Lymphocytes % (A) 17 %; MCH 30.7 pg (25.0-35.0); MCHC 33.9 g/dL (31.0-37.0); MCV 90.7 fL (80.0-100.0); Mean Platelet Volume 7.3; Monocytes # (A) 0.3 k/uL (0-1.0); Monocytes % (A) 4 %; Neutrophils # (A) 6.2 k/uL (1.3-7.7); Neutrophils % (A) 75 %; Platelet Count 206 k/uL (150-450); RBC 4.57 m/uL (4.30-5.90); RDW 13.4 % (11.5-15.5); WBC 8.2 k/uL (3.8-10.6)
[2019-09-03 12:57] LABS: ALT 47 U/L (4-49); AST 33 U/L (17-59); African American GFR (CKD) >90 (>60 ml/min/1.73 sqM); Albumin 4.6 g/dL (3.5-5.0); Alkaline Phosphatase 54 U/L (38-126); Anion Gap 9 mmol/L; Blood Urea Nitrogen 9 mg/dL (9-20); Calcium 9.7 mg/dL (8.4-10.2); Carbon Dioxide 24 mmol/L (22-30); Chloride 108 mmol/L (98-107); Glucose 101 mg/dL (74-99); Non-African American GFR(CKD) >90 (>60 ml/min/1.73 sqM); Potassium 3.6 mmol/L (3.5-5.1); Sodium 141 mmol/L (137-145); Total Bilirubin 0.9 mg/dL (0.2-1.3); Total Protein 7.5 g/dL (6.3-8.2)
[2019-09-03 14:14] VITALS: BP 151/90; PULSE 75
== END 2019-09-03 14:12 | disposition home or self-care (01) ==
LOC: EC 11:28
DX: E86.0 Dehydration (principal); R19.7 Diarrhea, unspecified; F41.9 Anxiety disorder, unspecified; J02.9 Acute pharyngitis, unspecified; I10 Essential (primary) hypertension; Z88.0 Allergy status to penicillin; Z79.899 Other long term (current) drug therapy; Z90.49 Acquired absence of other specified parts of digestive tract; Z87.19 Personal history of other diseases of the digestive system
CPT/HCPCS: 36415; 80053; 85025; 87040; 99284; 96374; 96361; J2405

== ENCOUNTER 2019-09-07 16:07 | Emergency (ER) | payer MEDICARE, OTHER ==
[2019-09-07 16:14] VITALS: TEMP 97.3
[2019-09-07] MEDS ORDERED: hydrALAZINE HCL 20 MG/ML 1 ML VIAL IVP STA (16:54)
[2019-09-07] MEDS ORDERED: LORazepam 2 MG/ML INJ IV STA (16:54)
--- NOTE | 2019-09-07 16:58 | ED ---
General Adult HPI - General Chief complaint: Neuro Symptoms/Deficit Stated complaint: dizziness/facial tingling Time Seen by Provider: 09/07/19 16:10 Source: patient, RN notes reviewed, old records reviewed Mode of arrival: wheelchair Limitations: no limitations - History of Present Illness Initial comments: This is a 54-year-old male with past medical history significant for Crohn's disease as well as anxiety and hypertension. Patient states he has had weird symptoms ever since . Patient states he has had the feeling that his throat was dry couldn't swallow also drinks a lot of fluid. Patient also believes he is dehydrated so is also been continuing to increase his fluid intake. Patient states he has Crohn's so he always has diarrhea it's no worse than normal however. Patient states the reason he came in today was because he was feeling very anxious and lightheaded and had some tingling on the right side of his face and tingling in his arm on the right no deficit was noted he stated he did not lose any ability to sense and he did not lose any strength. Patient denies any chest pain or palpitations. Patient denies any headache currently. Patient denies any injury. Patient denies any fever chills. Patient states around time his cat and he thinks the cat of some toxicity and he is worried that maybe he has the same toxicity and his body. Patient does not give a straightforward history he is all over the place remembering bits and pieces of symptoms that occurred over the last 2 weeks - Related Data Home Medications Medication Instructions Recorded Confirmed Metoprolol Tartrate [Lopressor] 50 mg PO BID 03/15/14 07/02/17 Mesalamine [Delzicol] 800 mg PO TID 04/15/14 07/02/17 ALPRAZolam [Xanax] 2 mg PO TID PRN 07/02/17 07/02/17 Lisinopril [Zestril] 10 mg PO HS 07/02/17 07/02/17 Previous Rx's Medication Instructions Recorded Azithromycin 250 mg PO DAILY 5 Days #6 tablet 07/02/17 Oxymetazoline 0.05% Nasl [place] 2 spray EA NOSTRIL BID PRN #1 07/02/17 [Afrin 0.05% Nasal [place]] bottle Pseudoephedrine [Sudafed] 30 mg PO Q6H PRN 5 Days #20 tablet 07/02/17 HYDROcodone/APAP 10-325MG [[place] 1 tab PO Q6H PRN #15 tab 08/08/17 10-325] Ketorolac [Toradol] 10 mg PO Q6HR #15 tab 08/08/17 Ondansetron [Zofran] 4 mg PO Q8HR PRN #20 tab 08/08/17 Tamsulosin [Flomax] 0.4 mg PO DAILY #10 cap 08/08/17 Allergies Allergy/AdvReac Type Severity Reaction Status Date / Time Penicillins Allergy Rash/Hives Verified 09/03/19 11:38 Review of Systems ROS Statement: Those systems with pertinent positive or pertinent negative responses have been documented in the HPI. ROS Other: All systems not noted in ROS Statement are negative. Past Medical History Past Medical History: Asthma, Hypertension, Thyroid Disorder Additional Past Medical History / Comment(s): CROHN'S, MASS ON BASE OF TONGUE, thyroid nodule right side History of Any Multi-Drug Resistant Organisms: None Reported Past Surgical History: Bowel Resection, Cholecystectomy, Tonsillectomy Additional Past Surgical History / Comment(s): BOWEL RESCECTION W/COLOSTOMY AND LATER REVERSAL R/T CROHN'S VASECTOMY, 2003 tonsillectomy Past Anesthesia/Blood Transfusion Reactions: No Reported Reaction Additional Past Anesthesia/Blood Transfusion Reaction / Comment(s): difficult intubation Past Psychological History: Anxiety Smoking Status: Never smoker Past Alcohol Use History: None Reported Past Drug Use History: None Reported - Past Family History Mother Family Medical History: No Reported History General Exam - General Exam Comments Initial Comments: GENERAL: Patient is well-developed and well-nourished. Patient is nontoxic and well-hydrated and is in mild distress. ENT: Neck is soft and supple. No significant lymphadenopathy is noted. Oropharynx is clear. Moist mucous membranes. Neck has full range of motion without eliciting any pain. EYES: The sclera were anicteric and conjunctiva were pink and moist. Extraocular movements were intact and pupils were equal round and reactive to light. Eyelids were unremarkable. PULMONARY: Unlabored respirations. Good breath sounds bilaterally. No audible rales rhonchi or wheezing was noted. CARDIOVASCULAR: There is a regular rate and rhythm without any murmurs gallops or rubs. ABDOMEN: Soft and nontender with normal bowel sounds. SKIN: Skin is clear with no lesions or rashes and otherwise unremarkable. NEUROLOGIC: Patient is alert and oriented x3. Cranial nerves II through XII are grossly intact. Motor and sensory are also intact. Normal speech, volume and content. Symmetrical smile. MUSCULOSKELETAL: Normal extremities with adequate strength and full range of motion. No lower extremity swelling or edema. No calf tenderness. LYMPHATICS: No significant lymphadenopathy is noted PSYCHIATRIC: Patient is anxious Limitations: no limitations Course Vital Signs 09/07/19 09/07/19 09/07/19 16:08 16:42 17:00 Temperature 97.3 F L Pulse Rate 94 87 Respiratory 18 18 Rate Blood Pressure 189/100 184/101 171/116 O2 Sat by Pulse 97 96 96 Oximetry 09/07/19 09/07/19 09/07/19 17:08 17:30 18:13 Temperature Pulse Rate 90 124 H Respiratory 18 16 Rate Blood Pressure 163/102 163/102 169/107 O2 Sat by Pulse 96 98 Oximetry 09/07/19 09/07/19 18:33 19:04 Temperature Pulse Rate 111 H 96 Respiratory 18 Rate Blood Pressure 163/98 O2 Sat by Pulse 97 Oximetry Medical Decision Making - Medical Decision Making EKG shows normal sinus rhythm at 80 bpm MI interval 158 QRS 100 QT interval 386 QTC is 467 per patient's EKG shows no ST segment elevation. Patient received hydralazine in the emergency department as well as labetalol. Patient's blood pressure came down and the symptoms went away entirely. Patient states he also thinks he was quite anxious. Patient told me at this time there was a second blood pressure medication but his doctor fairly recently stopped. Patient also indicated that he was under quite a bit of stress lately. - Lab Data Result diagrams: 09/07/19 17:00 09/07/19 17:00 Lab Results 09/07/19 09/07/19 09/07/19 Range/Units 17:00 17:00 17:00 WBC 9.0 (3.8-10.6) k/uL RBC 4.52 (4.30-5.90) m/uL Hgb 13.7 (13.0-17.5) gm/dL Hct 40.3 (39.0-53.0) % MCV 89.1 (80.0-100.0) fL MCH 30.2 (25.0-35.0) pg MCHC 33.9 (31.0-37.0) g/dL RDW 13.5 (11.5-15.5) % Plt Count 239 (150-450) k/uL Neutrophils % 73 % Lymphocytes % 18 % Monocytes % 5 % Eosinophils % 2 % Basophils % 1 % Neutrophils # 6.5 (1.3-7.7) k/uL Lymphocytes # 1.6 (1.0-4.8) k/uL Monocytes # 0.4 (0-1.0) k/uL Eosinophils # 0.1 (0-0.7) k/uL Basophils # 0.1 (0-0.2) k/uL PT 10.2 (9.0-12.0) sec INR 1.0 (<1.2) APTT 25.3 (22.0-30.0) sec Sodium 140 (137-145) mmol/L Potassium 3.3 L (3.5-5.1) mmol/L Chloride 108 H (98-107) mmol/L Carbon Dioxide 23 (22-30) mmol/L Anion Gap 9 mmol/L BUN 7 L (9-20) mg/dL Creatinine 0.79 (0.66-1.25) mg/dL Est GFR (CKD-EPI)AfAm >90 (>60 ml/min/1.73 sqM) Est GFR (CKD-EPI)NonAf >90 (>60 ml/min/1.73 sqM) Glucose 100 H (74-99) mg/dL Calcium 9.8 (8.4-10.2) mg/dL Magnesium 1.9 (1.6-2.3) mg/dL Total Bilirubin 0.9 (0.2-1.3) mg/dL AST 32 (17-59) U/L ALT 46 (4-49) U/L Alkaline Phosphatase 56 (38-126) U/L Troponin I (0.000-0.034) ng/mL Total Protein 7.4 (6.3-8.2) g/dL Albumin 4.6 (3.5-5.0) g/dL 09/07/19 Range/Units 17:00 WBC (3.8-10.6) k/uL RBC (4.30-5.90) m/uL Hgb (13.0-17.5) gm/dL Hct (39.0-53.0) % MCV (80.0-100.0) fL MCH (25.0-35.0) pg MCHC (31.0-37.0) g/dL RDW (11.5-15.5) % Plt Count (150-450) k/uL Neutrophils % % Lymphocytes % % Monocytes % % Eosinophils % % Basophils % % Neutrophils # (1.3-7.7) k/uL Lymphocytes # (1.0-4.8) k/uL Monocytes # (0-1.0) k/uL Eosinophils # (0-0.7) k/uL Basophils # (0-0.2) k/uL PT (9.0-12.0) sec INR (<1.2) APTT (22.0-30.0) sec Sodium (137-145) mmol/L Potassium (3.5-5.1) mmol/L Chloride (98-107) mmol/L Carbon Dioxide (22-30) mmol/L Anion Gap mmol/L BUN (9-20) mg/dL Creatinine (0.66-1.25) mg/dL Est GFR (CKD-EPI)AfAm (>60 ml/min/1.73 sqM) Est GFR (CKD-EPI)NonAf (>60 ml/min/1.73 sqM) Glucose (74-99) mg/dL Calcium (8.4-10.2) mg/dL Magnesium (1.6-2.3) mg/dL Total Bilirubin (0.2-1.3) mg/dL AST (17-59) U/L ALT (4-49) U/L Alkaline Phosphatase (38-126) U/L Troponin I <0.012 (0.000-0.034) ng/mL Total Protein (6.3-8.2) g/dL Albumin (3.5-5.0) g/dL Disposition Clinical Impression: Hypertensive urgency Disposition: HOME SELF-CARE Condition: Good Instructions (If sedation given, give patient instructions): Hypertension (ED) Additional Instructions: Patient should take his blood pressure before every meal before bed and documented so his doctor can follow-up with him. Patient just take metoprolol 1-1/2 tabs a set of 1 in the morning and at night. Is patient prescribed a controlled substance at d/c from ED?: No Referrals: Jeanmarie Reid DO [Primary Care Provider] - 1-2 days Time of Disposition: 19:42
[2019-09-07 17:13] LABS: Basophils # (A) 0.1 k/uL (0-0.2); Basophils % (A) 1 %; Eosinophils # (A) 0.1 k/uL (0-0.7); Eosinophils % (A) 2 %; HCT 40.3 % (39.0-53.0); HGB 13.7 gm/dL (13.0-17.5); Lymphocytes # (A) 1.6 k/uL (1.0-4.8); Lymphocytes % (A) 18 %; MCH 30.2 pg (25.0-35.0); MCHC 33.9 g/dL (31.0-37.0); MCV 89.1 fL (80.0-100.0); Mean Platelet Volume 6.9; Monocytes # (A) 0.4 k/uL (0-1.0); Monocytes % (A) 5 %; Neutrophils # (A) 6.5 k/uL (1.3-7.7); Neutrophils % (A) 73 %; Platelet Count 239 k/uL (150-450); RBC 4.52 m/uL (4.30-5.90); RDW 13.5 % (11.5-15.5)
[2019-09-07 17:22] LABS: ALT 46 U/L (4-49); AST 32 U/L (17-59); African American GFR (CKD) >90 (>60 ml/min/1.73 sqM); Albumin 4.6 g/dL (3.5-5.0); Alkaline Phosphatase 56 U/L (38-126); Anion Gap 9 mmol/L; Blood Urea Nitrogen 7 mg/dL (9-20); Calcium 9.8 mg/dL (8.4-10.2); Carbon Dioxide 23 mmol/L (22-30); Chloride 108 mmol/L (98-107); Glucose 100 mg/dL (74-99); Magnesium 1.9 mg/dL (1.6-2.3); Non-African American GFR(CKD) >90 (>60 ml/min/1.73 sqM); Partial Thromboplastin Time 25.3 sec (22.0-30.0); Potassium 3.3 mmol/L (3.5-5.1); Prothrombin Time 10.2 sec (9.0-12.0); Sodium 140 mmol/L (137-145); Total Bilirubin 0.9 mg/dL (0.2-1.3); Total Protein 7.4 g/dL (6.3-8.2)
[2019-09-07] MEDS ORDERED: SODIUM CHLORIDE 0.9% 1,000 ML IV STA (18:27)
[2019-09-07] MEDS ORDERED: LABETALOL 5 MG/ML VIAL MDV IVP STA (18:27)
[2019-09-07 19:05] VITALS: BP 163/98; PULSE 96; RESP 18
== END 2019-09-07 20:10 | disposition home or self-care (01) ==
LOC: EC 16:07
DX: I16.0 Hypertensive urgency (principal); K50.90 Crohn's disease, unspecified, without complications; Z79.899 Other long term (current) drug therapy; Z88.0 Allergy status to penicillin; Z90.49 Acquired absence of other specified parts of digestive tract; Z98.890 Other specified postprocedural states
CPT/HCPCS: 36415; 93005; 80053; 83735; 84484; 85025; 85610; 85730; 99284; 96374; 96375 ×2; 96361; J2060; J0360

== ENCOUNTER 2019-11-24 17:45 | Emergency (ER) | payer MEDICARE, OTHER ==
[2019-11-24 19:36] LABS: Basophils # (A) 0.1 k/uL (0-0.2); Basophils % (A) 1 %; Eosinophils # (A) 0.2 k/uL (0-0.7); Eosinophils % (A) 2 %; HCT 42.2 % (39.0-53.0); HGB 13.8 gm/dL (13.0-17.5); Lymphocytes # (A) 1.5 k/uL (1.0-4.8); Lymphocytes % (A) 16 %; MCHC 32.7 g/dL (31.0-37.0); MCV 91.9 fL (80.0-100.0); Monocytes # (A) 0.3 k/uL (0-1.0); Monocytes % (A) 4 %; Neutrophils # (A) 7.4 k/uL (1.3-7.7); Neutrophils % (A) 76 %; Platelet Count 190 k/uL (150-450); RBC 4.59 m/uL (4.30-5.90); RDW 13.9 % (11.5-15.5); WBC 9.8 k/uL (3.8-10.6)
[2019-11-24 19:44] LABS: ALT 39 U/L (4-49); AST 31 U/L (17-59); African American GFR (CKD) >90 (>60 ml/min/1.73 sqM); Albumin 4.4 g/dL (3.5-5.0); Alkaline Phosphatase 49 U/L (38-126); Anion Gap 9 mmol/L; Blood Urea Nitrogen 12 mg/dL (9-20); Carbon Dioxide 22 mmol/L (22-30); Chloride 110 mmol/L (98-107); Glucose 102 mg/dL (74-99); Magnesium 1.7 mg/dL (1.6-2.3); Non-African American GFR(CKD) >90 (>60 ml/min/1.73 sqM); Potassium 3.8 mmol/L (3.5-5.1); Sodium 141 mmol/L (137-145); Total Bilirubin 0.6 mg/dL (0.2-1.3); Total Protein 7.1 g/dL (6.3-8.2)
--- NOTE | 2019-11-24 19:52 | XR ---
EXAMINATION TYPE: XR chest 2V DATE OF EXAM: 11/24/2019 CLINICAL HISTORY: Hemoptysis since . TECHNIQUE: Frontal and lateral views of the chest are obtained. COMPARISON: Chest x-ray September 16, 2014 FINDINGS: There is no new suspicious focal air space opacity, pleural effusion, or pneumothorax seen . Small amount of fluid right midlung fissure redemonstrated stable. The cardiac silhouette size tiffanie ins within normal limits. The osseous structures are intact. Cholecystectomy clips redemonstrated. IMPRESSION: No new acute cardiopulmonary process.
--- NOTE | 2019-11-24 19:54 | XR ---
EXAMINATION TYPE: XR KUB DATE OF EXAM: 11/24/2019 7:44 PM CLINICAL HISTORY: Hemoptysis and pain. TECHNIQUE: Two Upright KUB images of the abdomen are obtained. COMPARISON: Abdominal x-ray April 25, 2017. CT abdomen and pelvis August 08, 2017. FINDINGS: Some possibly of bowel gas with scattered gas in nondistended small and large bowel loops. Cholecystectomy clips are redemonstrated. Lung bases remain clear. No pneumoperitoneum or suspicious calcifications. Visualized osseous structures are intact. Stable left pelvic phlebolith. IMPRESSION: Overall nonobstructive bowel gas pattern remains present.
--- NOTE | 2019-11-24 21:50 | ED ---
General Adult HPI - General Chief complaint: Shortness of Breath Stated complaint: Spitting up blood Time Seen by Provider: 11/24/19 18:12 Source: patient, RN notes reviewed Mode of arrival: ambulatory Limitations: no limitations - History of Present Illness Initial comments: This is a 54-year-old male with a history of Crohn's disease who presents with complaints of intermittent episodes of this pain of blood he states is bright red he seems to be having more episodes of this in frequency. He's had ENT evaluation and has a surgical evaluation pending for January 02 of this year. It persisted patient is very anxious from this. He denies any lightheadedness or dizziness however no fevers chills sweats occasional abdominal pain. He denies any overt blood per rectum. He does say he's been having appears be an oily film on a toilet bowl at times a. Also of note he does have a history of a cholecystectomy. He has had previous surgery for the Crohn's disease. - Related Data Home Medications Medication Instructions Recorded Confirmed Metoprolol Tartrate [Lopressor] 50 mg PO BID 03/15/14 11/24/19 Mesalamine [Delzicol] 800 mg PO TID 04/15/14 11/24/19 Lisinopril [Zestril] 10 mg PO HS 07/02/17 11/24/19 ALPRAZolam [Xanax] 1 mg PO HS PRN 11/24/19 11/24/19 Cetirizine HCl 10 mg PO HS 11/24/19 11/24/19 Omeprazole 20 mg PO BID 11/24/19 11/24/19 Turmeric Root Extract [Turmeric] 500 mg PO HS 11/24/19 11/24/19 Allergies Allergy/AdvReac Type Severity Reaction Status Date / Time Penicillins Allergy Rash/Hives Verified 11/24/19 20:10 Review of Systems ROS Statement: Those systems with pertinent positive or pertinent negative responses have been documented in the HPI. ROS Other: All systems not noted in ROS Statement are negative. Past Medical History Past Medical History: Asthma, Hypertension, Thyroid Disorder Additional Past Medical History / Comment(s): CROHN'S, MASS ON BASE OF TONGUE, thyroid nodule right side History of Any Multi-Drug Resistant Organisms: None Reported Past Surgical History: Bowel Resection, Cholecystectomy, Orthopedic Surgery, Tonsillectomy Additional Past Surgical History / Comment(s): BOWEL RESCECTION W/COLOSTOMY AND LATER REVERSAL R/T CROHN'S VASECTOMY, 2003 tonsillectomy Past Anesthesia/Blood Transfusion Reactions: No Reported Reaction Additional Past Anesthesia/Blood Transfusion Reaction / Comment(s): difficult intubation Past Psychological History: Anxiety Smoking Status: Never smoker Past Alcohol Use History: None Reported Past Drug Use History: None Reported - Past Family History Mother Family Medical History: No Reported History General Exam - General Exam Comments Initial Comments: This is a well-developed well-nourished awake alert oriented 3 male Limitations: no limitations General appearance: alert, anxious Head exam: Present: atraumatic, normocephalic, normal inspection Eye exam: Present: normal appearance, PERRL, EOMI. Absent: scleral icterus, conjunctival injection, periorbital swelling ENT exam: Present: normal exam, mucous membranes moist Neck exam: Present: normal inspection. Absent: tenderness, meningismus, lymphadenopathy Respiratory exam: Present: normal lung sounds bilaterally. Absent: respiratory distress, wheezes, rales, rhonchi, stridor Cardiovascular Exam: Present: regular rate, normal rhythm, normal heart sounds. Absent: systolic murmur, diastolic murmur, rubs, gallop, clicks GI/Abdominal exam: Present: soft, normal bowel sounds. Absent: distended, tenderness, guarding, rebound, rigid Extremities exam: Present: normal inspection, full ROM, normal capillary refill. Absent: tenderness, pedal edema, joint swelling, calf tenderness Back exam: Present: normal inspection Neurological exam: Present: alert, oriented X3, CN II-XII intact Psychiatric exam: Present: normal affect, normal mood Skin exam: Present: warm, dry, intact, normal color. Absent: rash Course Vital Signs 11/24/19 11/24/19 18:00 19:26 Temperature 98.3 F Pulse Rate 95 89 Respiratory 18 18 Rate Blood Pressure 179/113 155/95 O2 Sat by Pulse 98 96 Oximetry - Reevaluation(s) Reevaluation #1: 11/24/19 21:51 The patient did decline have rectal exam performed by me we did however get a stool sample was sent for occult blood testing. Medical Decision Making - Medical Decision Making I did a long discussion with patient has regarding findings. Patient's Hemoccult test was positive hours lab work is within normal limits with respect to his hemoglobin. Did discuss the case with Dr. Alatorre. The patient will get scheduled for an EGD on November 28. The patient will call the office tomorrow to get as scheduled. - Lab Data Result diagrams: 11/24/19 19:24 11/24/19 19:24 Lab Results 11/24/19 11/24/19 11/24/19 Range/Units 19:24 19:24 21:36 WBC 9.8 (3.8-10.6) k/uL RBC 4.59 (4.30-5.90) m/uL Hgb 13.8 (13.0-17.5) gm/dL Hct 42.2 (39.0-53.0) % MCV 91.9 (80.0-100.0) fL MCH 30.0 (25.0-35.0) pg MCHC 32.7 (31.0-37.0) g/dL RDW 13.9 (11.5-15.5) % Plt Count 190 (150-450) k/uL Neutrophils % 76 % Lymphocytes % 16 % Monocytes % 4 % Eosinophils % 2 % Basophils % 1 % Neutrophils # 7.4 (1.3-7.7) k/uL Lymphocytes # 1.5 (1.0-4.8) k/uL Monocytes # 0.3 (0-1.0) k/uL Eosinophils # 0.2 (0-0.7) k/uL Basophils # 0.1 (0-0.2) k/uL Sodium 141 (137-145) mmol/L Potassium 3.8 (3.5-5.1) mmol/L Chloride 110 H (98-107) mmol/L Carbon Dioxide 22 (22-30) mmol/L Anion Gap 9 mmol/L BUN 12 (9-20) mg/dL Creatinine 0.79 (0.66-1.25) mg/dL Est GFR (CKD-EPI)AfAm >90 (>60 ml/min/1.73 sqM) Est GFR (CKD-EPI)NonAf >90 (>60 ml/min/1.73 sqM) Glucose 102 H (74-99) mg/dL Calcium 10.0 (8.4-10.2) mg/dL Magnesium 1.7 (1.6-2.3) mg/dL Total Bilirubin 0.6 (0.2-1.3) mg/dL AST 31 (17-59) U/L ALT 39 (4-49) U/L Alkaline Phosphatase 49 (38-126) U/L Total Protein 7.1 (6.3-8.2) g/dL Albumin 4.4 (3.5-5.0) g/dL Stool Occult Blood Positive (Negative) - Radiology Data Radiology results: report reviewed, image reviewed Disposition Clinical Impression: Hematemesis of unknown cause, Crohn's disease Disposition: HOME SELF-CARE Condition: Good Instructions (If sedation given, give patient instructions): Hematemesis (ED) Additional Instructions: Continue with her current medication. Call Dr. Alatorre's office tomorrow to bryce jackson an EGD for November 28 of this year. Is patient prescribed a controlled substance at d/c from ED?: No Referrals: Jeanmarie Reid DO [Primary Care Provider] - 1-2 days Víctor Alatorre MD [Medical Doctor] - 1-2 days
[2019-11-25 10:24] VITALS: BP 157/93; PULSE 93; RESP 18; TEMP 98
== END 2019-11-24 22:51 | disposition home or self-care (01) ==
LOC: EC 17:45
DX: K92.0 Hematemesis (principal); K50.90 Crohn's disease, unspecified, without complications; I10 Essential (primary) hypertension; F41.9 Anxiety disorder, unspecified; Z79.899 Other long term (current) drug therapy; Z79.1 Long term (current) use of non-steroidal anti-inflammatories (NSAID); Z88.0 Allergy status to penicillin; Z90.49 Acquired absence of other specified parts of digestive tract; Z93.3 Colostomy status; Z98.52 Vasectomy status
CPT/HCPCS: 36415; 71046; 74018; 80053; 82272; 83735; 85025; 99285

== ENCOUNTER 2019-11-29 11:21 | Day surgery (SDC) | payer MEDICARE, OTHER ==
[2019-11-28 08:48] VITALS: BMI 39.0
[~2019-11-29 11:21] MED LIST: LACTATED RINGERS 1,000 ML IV SCH
[2019-11-29 11:38] VITALS: TEMP 96.5
[2019-11-29] MEDS ORDERED: MIDAZOLAM 2 MG/2 ML VIAL IV ONE (12:00)
[2019-11-29] MEDS ORDERED: PROPOFOL 10 MG/ML 20 ML VIAL IV ONE (12:25)
[2019-11-29] MEDS ORDERED: LIDOCAINE 1% INJ 10MG/ML (20 ML MDV) ONE (12:25)
--- NOTE | 2019-11-29 12:42 | P.GSHP ---
History of Present Illness H&P Date: 11/29/19 Chief Complaint: her GI bleed, change in bowel habits Patient here today for upper and lower endoscopy. Patient describes change in bowel habits with frequent diarrhea. Some microscopic blood in his stool. Patient with history of Crohn's disease. Unsure when his last colonoscopy was. Patient has had previous bowel resection for his Crohn's disease. Also having upper endoscopy. Describes feeling and tasting blood in the back of his throat. Denies hemoptysis or hematemesis however. He does spit out blood periodically. Recent indirect laryngoscopy by ENT was negative. Past Medical History Past Medical History: Asthma, Hypertension, Thyroid Disorder Additional Past Medical History / Comment(s): CROHN'S, MASS ON BASE OF TONGUE, thyroid nodule right side, spitting up blood 11/24/19 History of Any Multi-Drug Resistant Organisms: None Reported Past Surgical History: Bowel Resection, Cholecystectomy, Orthopedic Surgery, Tonsillectomy Additional Past Surgical History / Comment(s): BOWEL RESCECTION W/COLOSTOMY AND LATER REVERSAL R/T CROHN'S VASECTOMY, 2003 tonsillectomy Past Anesthesia/Blood Transfusion Reactions: No Reported Reaction Additional Past Anesthesia/Blood Transfusion Reaction / Comment(s): difficult intubation d/t small airway -has letter pt states indicates to use size 4 glidoscope Past Psychological History: Anxiety Past Alcohol Use History: None Reported Past Drug Use History: None Reported - Past Family History Mother Family Medical History: No Reported History Medications and Allergies Home Medications Medication Instructions Recorded Confirmed Type Metoprolol Tartrate [Lopressor] 50 mg PO BID 03/15/14 11/29/19 History Mesalamine [Delzicol] 800 mg PO TID 04/15/14 11/28/19 History Lisinopril [Zestril] 10 mg PO HS 07/02/17 11/28/19 History ALPRAZolam [Xanax] 1 mg PO HS PRN 11/24/19 11/29/19 History Cetirizine HCl 10 mg PO HS 11/24/19 11/28/19 History Omeprazole 20 mg PO BID 11/24/19 11/28/19 History Turmeric Root Extract [Turmeric] 500 mg PO HS 11/24/19 11/28/19 History Allergies Allergy/AdvReac Type Severity Reaction Status Date / Time Penicillins Allergy Rash/Hives Verified 11/29/19 11:29 Surgical - Exam Vital Signs Temp Pulse Resp BP Pulse Ox 96.5 F L 70 17 175/89 97 11/29/19 11:36 11/29/19 11:36 11/29/19 11:36 11/29/19 11:36 11/29/19 11:36 Physical exam: General: Well-developed, well-nourished HEENT: Normocephalic, sclerae nonicteric Abdomen: Nontender, nondistended Extremities: No edema Neuro: Alert and oriented Assessment and Plan (1) Crohn disease Narrative/Plan: Will proceed with upper and lower endoscopy. Current Visit: No Status: Acute Code(s): K50.90 - CROHN'S DISEASE, UNSPECIFIED, WITHOUT COMPLICATIONS SNOMED Code(s): 99528057
[2019-11-29] MEDS ORDERED: IV FLUID CONTINUATION 1,000 ML IV ONE (12:59)
--- NOTE | 2019-11-29 13:03 | P.PCN ---
Date of Procedure: 11/29/19 Procedure(s) Performed: PREOPERATIVE DIAGNOSIS: Upper GI bleed, change in bowel habits POSTOPERATIVE DIAGNOSIS: Minimal gastritis, anastomotic polyp PROCEDURE: 1. EGD with biopsy 2. Colonoscopy with biopsy ANESTHESIA: MAC SURGEON: Víctor Alatorre M.D. SPECIMENS: Antrum, anastomosis ENDOSCOPIC PROCEDURE: The patient was on the endoscopy table in the left decubitus position. The Olympus gastroscope was inserted into the oropharynx and passed under direct visualization to the region of the third portion of the duodenum. From that point the scope was slowly withdrawn inspecting all surfaces carefully. There were no neoplastic inflammatory or polypoid lesions throughout the duodenum. The pylorus was widely patent. The stomach was carefully inspected. There was minimal gastritis present. A biopsy of the antrum took place to rule out H. pylori. Retroflexion revealed a normal hiatus. The esophagus was then carefully examined. There were no neoplastic inflammatory or polypoid lesions throughout the visualized esophagus. I bleeding was noted. The patient was kept on the endoscopy table in the left decubitus position. The Olympus colonoscope was inserted into the anus and passed under direct visualization to the right colon. There appeared to be evidence of previous right colectomy. There was a area of prominence that had a polypoid shaped coming off of the side of the anastomosis behind a fold. This likely represented small bowel mucosa. Biopsies were taken to rule out adenomatous tissue. The remainder of the ascending transverse descending and rectum appeared normal. There is no visible diverticulosis. Digital rectal examination was normal. The patient was taken to the recovery room in stable condition per anesthesia guidelines. RECOMMENDATIONS: Await biopsy results. Continue workup of the patient's complaints of blood in his oropharynx. Recommend GI evaluation to follow his Crohn's disease for medical management.
[2019-11-29 13:20] VITALS: BP 153/82; PULSE 77; RESP 18
== END 2019-11-29 13:38 | disposition home or self-care (01) ==
LOC: ORWHC2ENDO 11:21
PROVIDERS: ATTEND Surgery
DX: K29.50 Unspecified chronic gastritis without bleeding (principal); D12.2 Benign neoplasm of ascending colon; R19.4 Change in bowel habit; K21.9 Gastro-esophageal reflux disease without esophagitis; K50.90 Crohn's disease, unspecified, without complications; J45.909 Unspecified asthma, uncomplicated; I10 Essential (primary) hypertension; E07.9 Disorder of thyroid, unspecified; R22.0 Localized swelling, mass and lump, head; E04.1 Nontoxic single thyroid nodule; F41.9 Anxiety disorder, unspecified; Z90.49 Acquired absence of other specified parts of digestive tract; Z79.899 Other long term (current) drug therapy; Z88.0 Allergy status to penicillin; Z98.890 Other specified postprocedural states; Z90.89 Acquired absence of other organs; Z98.52 Vasectomy status
CPT/HCPCS: 88305; 45380; 43239; J2250; J2001; J2704

== ENCOUNTER 2019-12-23 10:43 | Day surgery (SDC) | payer MEDICARE, OTHER ==
[2019-12-23 11:23] VITALS: RESP 16; TEMP 99.5
[2019-12-23] MEDS ORDERED: LACTATED RINGERS 1,000 ML IV ONE (11:33)
[2019-12-23] MEDS ORDERED: LIDOCAINE 1% (10MG/ML) FOR IV START INTRADERMA ONE (11:33)
[2019-12-23] MEDS ORDERED: MIDAZOLAM 2 MG/2 ML VIAL IVP ONE (12:41)
[2019-12-23] MEDS ORDERED: LIDOCAINE 1% INJ 10MG/ML (20 ML MDV) ONE (12:49)
[2019-12-23] MEDS ORDERED: fentaNYL (PF) 50 MCG/ML 2 ML AMP ONE (12:49)
[2019-12-23] MEDS ORDERED: PROPOFOL 10 MG/ML 20 ML VIAL IV ONE (12:49)
--- NOTE | 2019-12-23 13:39 | P.PCN ---
Date of Procedure: 12/23/19 Procedure(s) Performed: BRIEF HISTORY: Patient is a 52-year-old pleasant white male with history of Crohn's disease diagnosed in 2016 status post right colon and terminal ileal resection many years ago. He underwent a surveillance colonoscopy by about 3 weeks ago and was noted to have a 3 cm broad-based polyp in the transverse colon that was biopsied revealed tubulovillous adenoma. His and scheduled for a colonoscopy for complete polypectomy. PROCEDURE PERFORMED: Colonoscopy with snare polypectomy and tattooing with Remedios ink. PREOPERATIVE DIAGNOSIS: Large transverse colon polyp. IV sedation per Anesthesia. PROCEDURE: After informed consent was obtained, the patient, was brought into [facility] endoscopy unit. IV sedation was administered by Anesthesia under continuous monitoring. Digital rectal examination was normal. Initially the Olympus CF-160 flexible video colonoscope was then inserted in the rectum, gradually advanced into the right colon with a liquid anastomosis was slight and appeared narrowed. No active colitis seen. In the proximal transverse colon closer to the hepatic flexure there was a 2.5-3 cm broad-based polyp that was removed by piecemeal snare polypectomy and almost 90% the polyp was removed. Tattooing was performed with Remedios ink in the vicinity. The rest of the transverse colon, descending colon, sigmoid colon, and rectum appeared normal. Retroflexion was performed in the rectum and no lesions were seen. The patient tolerated the procedure well. IMPRESSION: 3 cm broad-based proximal transverse colon polyp close to the hepatic flexure status post piecemeal snare polypectomy followed by tattooing with Remedios ink. Stricture of the liquid anastomosis RECOMMENDATIONS: Findings of this examination were discussed with the patient as well as his family. He was advised to follow with the biopsy results. He'll be seen in office in 2 weeks. Reason the biopsy results will plan a repeat colonoscopy in 6 months.
[2019-12-23 14:07] VITALS: BP 165/94; PULSE 73
== END 2019-12-23 14:23 | disposition home or self-care (01) ==
LOC: ORWHC2ENDO 10:43
PROVIDERS: ATTEND Internal Medicine Gastroenterology
DX: D12.3 Benign neoplasm of transverse colon (principal); K50.90 Crohn's disease, unspecified, without complications; Z90.49 Acquired absence of other specified parts of digestive tract; K56.699 Other intestinal obstruction unspecified as to partial versus complete obstruction; K14.9 Disease of tongue, unspecified; I10 Essential (primary) hypertension; J45.909 Unspecified asthma, uncomplicated; E04.1 Nontoxic single thyroid nodule; F41.9 Anxiety disorder, unspecified; Z79.899 Other long term (current) drug therapy; Z88.0 Allergy status to penicillin
CPT/HCPCS: 96376; 96361; 96365; 96375; 99284; 36415; 88305; 80053; 83605; 85025; 81001; 87040; 71046; 45385; 45381; J2250; J2270; J2001; J3010; J1956; J2704; 44404

== ENCOUNTER 2019-12-23 21:40 | Emergency (ER) | payer MEDICARE, OTHER ==
[2019-12-23] MEDS ORDERED: ACETAMINOPHEN TAB 325 MG TAB PO STA (21:56)
[2019-12-23] MEDS ORDERED: SODIUM CHLORIDE 0.9% 500 ML 500 ML IV STA ×2 (22:14→22:48)
[2019-12-23] MEDS ORDERED: MORPHINE SULFATE 4 MG/ML SYRINGE IV STA (22:15)
[2019-12-23 22:27] LABS: Basophils # (A) 0.1 k/uL (0-0.2); Basophils % (A) 1 %; Eosinophils # (A) 0.3 k/uL (0-0.7); Eosinophils % (A) 2 %; HCT 43.5 % (39.0-53.0); HGB 14.5 gm/dL (13.0-17.5); Lymphocytes # (A) 1.6 k/uL (1.0-4.8); Lymphocytes % (A) 9 %; MCH 30.4 pg (25.0-35.0); MCHC 33.3 g/dL (31.0-37.0); MCV 91.3 fL (80.0-100.0); Mean Platelet Volume 7.2; Monocytes # (A) 0.5 k/uL (0-1.0); Monocytes % (A) 3 %; Neutrophils # (A) 14.7 k/uL (1.3-7.7); Neutrophils % (A) 85 %; Platelet Count 234 k/uL (150-450); RBC 4.76 m/uL (4.30-5.90); WBC 17.4 k/uL (3.8-10.6)
--- NOTE | 2019-12-23 22:35 | XR ---
EXAMINATION TYPE: XR chest 2V DATE OF EXAM: 12/23/2019 COMPARISON: 11/24/2019 HISTORY: Hemoptysis TECHNIQUE: 2 views FINDINGS: Heart and mediastinum are normal. Lungs are clear. Diaphragm is normal. Bony thorax appears normal. IMPRESSION: Normal chest. No change.
[2019-12-23 22:36] LABS: ALT 41 U/L (4-49); AST 34 U/L (17-59); African American GFR (CKD) >90 (>60 ml/min/1.73 sqM); Albumin 4.7 g/dL (3.5-5.0); Alkaline Phosphatase 54 U/L (38-126); Anion Gap 12 mmol/L; Blood Urea Nitrogen 9 mg/dL (9-20); Calcium 9.9 mg/dL (8.4-10.2); Carbon Dioxide 20 mmol/L (22-30); Chloride 107 mmol/L (98-107); Glucose 136 mg/dL (74-99); Non-African American GFR(CKD) >90 (>60 ml/min/1.73 sqM); Potassium 3.2 mmol/L (3.5-5.1); Sodium 139 mmol/L (137-145); Total Bilirubin 1.1 mg/dL (0.2-1.3); Total Protein 7.5 g/dL (6.3-8.2)
[2019-12-23 22:45] LABS: Appearance,Urine Clear (Clear); Bilirubin,Urine Negative (Negative); Blood,Urine Negative (Negative); Color,Urine Yellow; Glucose,Urine (UA) Negative (Negative); Hyaline Casts,Urine 3 /lpf (0-2); Ketones,Urine Negative (Negative); Leukocyte Esterase,Urine Negative (Negative); Mucus,Urine Occasional /hpf; Nitrite,Urine Negative (Negative); Protein,Urine 1+ (Negative); RBC,Urine <1 /hpf (0-5); Specific Gravity,Urine 1.026 (1.001-1.035); Urobilinogen,Urine <2.0 mg/dL (<2.0); WBC,Urine 2 /hpf (0-5)
[2019-12-23] MEDS ORDERED: LEVOFLOXACIN 750MG-D5W PMX 750 MG in DEXTROSE/WATER 1 150ML.BAG IVPB STA (22:47)
[2019-12-23] MEDS ORDERED: SODIUM CHLORIDE 0.9% 1,000 ML IV STA (22:48)
[2019-12-23] MEDS ORDERED: SODIUM CHLORIDE 0.9% 1,000 ML IV ONE (22:48)
[2019-12-23] MEDS ORDERED: POTASSIUM CHLORIDE ER 20 MEQ TAB.ER PO STA (22:50)
[2019-12-24] MEDS ORDERED: MORPHINE SULFATE 4 MG/ML SYRINGE IV STA (00:13)
[2019-12-24] MEDS ORDERED: metroNIDAZOLE 500 MG TAB PO STA (01:02)
--- NOTE | 2019-12-24 01:05 | ED ---
Fever HPI - General Chief Complaint: Fever Stated Complaint: Post op Shaking,Fever Time Seen by Provider: 12/23/19 21:55 Source: patient Mode of arrival: ambulatory Limitations: no limitations - History of Present Illness Initial Comments: This patient is a 54-year-old man who presents to be evaluated after he developed chills and fever tonight. Patient states he had gone for colonoscopy and had a polyp removed. He was told that the polyp removal was somewhat arduous, requiring multiple snare attempts, and that he should maintain a low threshold for returning to the hospital. Patient has had some right upper quadrant cramping since procedure but denies alexis abdominal pain. No nausea or vomiting. No change in urination. No cough or dyspnea. MD Complaint: fever -: hour(s) Temperature Source: subjective Context: recent procedure Associated Symptoms: abdominal pain Treatments Prior to Arrival: none - Related Data Home Medications Medication Instructions Recorded Confirmed Metoprolol Tartrate [Lopressor] 50 mg PO BID 03/15/14 12/23/19 Mesalamine [Delzicol] 800 mg PO TID 04/15/14 12/23/19 lisinopriL [Zestril] 10 mg PO HS 07/02/17 12/23/19 ALPRAZolam [Xanax] 1 mg PO HS PRN 11/24/19 12/23/19 Cetirizine HCl 10 mg PO HS 11/24/19 12/23/19 Omeprazole 20 mg PO BID 11/24/19 12/23/19 Turmeric Root Extract [Turmeric] 500 mg PO HS 11/24/19 12/23/19 Previous Rx's Medication Instructions Recorded Ciprofloxacin HCl [Cipro] 500 mg PO Q12HR #14 tablet 12/24/19 metroNIDAZOLE [Flagyl] 500 mg PO TID #21 tab 12/24/19 traMADol HCl [Ultram] 50 mg PO Q6H PRN #15 tab 12/24/19 Allergies Allergy/AdvReac Type Severity Reaction Status Date / Time Penicillins Allergy Rash/Hives Verified 12/23/19 21:57 Review of Systems ROS Statement: Those systems with pertinent positive or pertinent negative responses have been documented in the HPI. ROS Other: All systems not noted in ROS Statement are negative. Constitutional: Reports: chills ENT: Denies: throat pain Respiratory: Denies: cough, dyspnea Cardiovascular: Denies: chest pain, palpitations, edema, syncope Gastrointestinal: Reports: as per HPI, abdominal pain. Denies: nausea, vomiting, diarrhea, constipation, melena, hematochezia Genitourinary: Denies: dysuria, hematuria, testicular pain Musculoskeletal: Denies: back pain Skin: Denies: rash Neurological: Denies: headache, weakness, numbness Psychiatric: Denies: anxiety Hematological/Lymphatic: Denies: easy bleeding Past Medical History Past Medical History: Asthma, Hypertension, Thyroid Disorder Additional Past Medical History / Comment(s): CROHN'S, MASS ON BASE OF TONGUE, thyroid nodule right side, spitting up blood 11/24/19 History of Any Multi-Drug Resistant Organisms: None Reported Past Surgical History: Bowel Resection, Cholecystectomy, Orthopedic Surgery, Tonsillectomy Additional Past Surgical History / Comment(s): BOWEL RESCECTION W/COLOSTOMY AND LATER REVERSAL R/T CROHN'S VASECTOMY, 2002 tonsillectomy Past Anesthesia/Blood Transfusion Reactions: No Reported Reaction Additional Past Anesthesia/Blood Transfusion Reaction / Comment(s): difficult intubation d/t small airway -has letter pt states indicates to use size 4 glidoscope Past Psychological History: Anxiety Smoking Status: Never smoker Past Alcohol Use History: None Reported Past Drug Use History: None Reported - Past Family History Mother Family Medical History: No Reported History General Exam Limitations: no limitations General appearance: alert, in no apparent distress Head exam: Present: atraumatic, normocephalic Eye exam: Present: normal appearance. Absent: scleral icterus, conjunctival injection ENT exam: Present: normal oropharynx Respiratory exam: Present: normal lung sounds bilaterally. Absent: respiratory distress, wheezes, rales, rhonchi, stridor Cardiovascular Exam: Present: regular rate, normal rhythm, normal heart sounds. Absent: systolic murmur, diastolic murmur, rubs, gallop GI/Abdominal exam: Present: soft, tenderness (Mild right upper quadrant tende rness without rebound or guarding), hyperactive bowel sounds. Absent: distended, guarding, rebound, rigid, mass, pulsatile mass, hernia Extremities exam: Present: normal inspection, normal capillary refill. Absent: pedal edema, calf tenderness Back exam: Present: normal inspection. Absent: CVA tenderness (R), CVA tenderness (L) Neurological exam: Present: alert Skin exam: Present: warm, dry, intact, normal color. Absent: rash Course Vital Signs 12/23/19 12/23/19 12/24/19 21:48 23:05 00:10 Temperature 100.0 F H 99.8 F H 98.5 F Pulse Rate 91 87 83 Respiratory 18 19 18 Rate Blood Pressure 191/95 158/79 144/88 O2 Sat by Pulse 91 L 96 Oximetry 12/24/19 12/24/19 01:24 01:58 Temperature 98.1 F Pulse Rate 81 81 Respiratory 18 19 Rate Blood Pressure 149/87 145/81 O2 Sat by Pulse 97 97 Oximetry Medical Decision Making - Medical Decision Making Patient's 54-year-old man with fever and right upper quadrant pain following colonoscopy with polypectomy. The patient's workup reveals that he does meet sepsis criteria and he is given fluid and antibiotics. I informed the patient that I was going to admit him to the hospital and he states that he can't stay. He states that his son is having graduation republican on Thursday and that he has to attend that. I discussed risk of his condition worsening including risk of permanent disability and . The patient will return if he is feeling any worse. - Lab Data Result diagrams: 12/23/19 22:17 12/23/19 22:17 Lab Results 12/23/19 12/23/19 12/23/19 Range/Units 22:17 22:17 22:17 WBC 17.4 H (3.8-10.6) k/uL RBC 4.76 (4.30-5.90) m/uL Hgb 14.5 (13.0-17.5) gm/dL Hct 43.5 (39.0-53.0) % MCV 91.3 (80.0-100.0) fL MCH 30.4 (25.0-35.0) pg MCHC 33.3 (31.0-37.0) g/dL RDW 14.0 (11.5-15.5) % Plt Count 234 (150-450) k/uL Neutrophils % 85 % Lymphocytes % 9 % Monocytes % 3 % Eosinophils % 2 % Basophils % 1 % Neutrophils # 14.7 H (1.3-7.7) k/uL Lymphocytes # 1.6 (1.0-4.8) k/uL Monocytes # 0.5 (0-1.0) k/uL Eosinophils # 0.3 (0-0.7) k/uL Basophils # 0.1 (0-0.2) k/uL Sodium 139 (137-145) mmol/L Potassium 3.2 L (3.5-5.1) mmol/L Chloride 107 (98-107) mmol/L Carbon Dioxide 20 L (22-30) mmol/L Anion Gap 12 mmol/L BUN 9 (9-20) mg/dL Creatinine 0.80 (0.66-1.25) mg/dL Est GFR (CKD-EPI)AfAm >90 (>60 ml/min/1.73 sqM) Est GFR (CKD-EPI)NonAf >90 (>60 ml/min/1.73 sqM) Glucose 136 H (74-99) mg/dL Lactic Ac Sepsis Rflx Plasma Lactic Acid Jon 3.6 H* (0.7-2.0) mmol/L Calcium 9.9 (8.4-10.2) mg/dL Total Bilirubin 1.1 (0.2-1.3) mg/dL AST 34 (17-59) U/L ALT 41 (4-49) U/L Alkaline Phosphatase 54 (38-126) U/L Total Protein 7.5 (6.3-8.2) g/dL Albumin 4.7 (3.5-5.0) g/dL Urine Color Urine Appearance (Clear) Urine pH (5.0-8.0) Ur Specific E[place] (1.001-1.035) Urine Protein (Negative) Urine Glucose (UA) (Negative) Urine Ketones (Negative) Urine Blood (Negative) Urine Nitrite (Negative) Urine Bilirubin (Negative) Urine Urobilinogen (<2.0) mg/dL Ur Leukocyte Esterase (Negative) Urine RBC (0-5) /hpf Urine WBC (0-5) /hpf Hyaline Casts (0-2) /lpf Urine Mucus (None) /hpf 12/23/19 12/23/19 12/24/19 Range/Units 22:35 22:41 01:24 WBC (3.8-10.6) k/uL RBC (4.30-5.90) m/uL Hgb (13.0-17.5) gm/dL Hct (39.0-53.0) % MCV (80.0-100.0) fL MCH (25.0-35.0) pg MCHC (31.0-37.0) g/dL RDW (11.5-15.5) % Plt Count (150-450) k/uL Neutrophils % % Lymphocytes % % Monocytes % % Eosinophils % % Basophils % % Neutrophils # (1.3-7.7) k/uL Lymphocytes # (1.0-4.8) k/uL Monocytes # (0-1.0) k/uL Eosinophils # (0-0.7) k/uL Basophils # (0-0.2) k/uL Sodium (137-145) mmol/L Potassium (3.5-5.1) mmol/L Chloride (98-107) mmol/L Carbon Dioxide (22-30) mmol/L Anion Gap mmol/L BUN (9-20) mg/dL Creatinine (0.66-1.25) mg/dL Est GFR (CKD-EPI)AfAm (>60 ml/min/1.73 sqM) Est GFR (CKD-EPI)NonAf (>60 ml/min/1.73 sqM) Glucose (74-99) mg/dL Lactic Ac Sepsis Rflx Y Plasma Lactic Acid Jon 1.3 (0.7-2.0) mmol/L Calcium (8.4-10.2) mg/dL Total Bilirubin (0.2-1.3) mg/dL AST (17-59) U/L ALT (4-49) U/L Alkaline Phosphatase (38-126) U/L Total Protein (6.3-8.2) g/dL Albumin (3.5-5.0) g/dL Urine Color Yellow Urine Appearance Clear (Clear) Urine pH 6.0 (5.0-8.0) Ur Specific [place] 1.026 (1.001-1.035) Urine Protein 1+ H (Negative) Urine Glucose (UA) Negative (Negative) Urine Ketones Negative (Negative) Urine Blood Negative (Negative) Urine Nitrite Negative (Negative) Urine Bilirubin Negative (Negative) Urine Urobilinogen <2.0 (<2.0) mg/dL Ur Leukocyte Esterase Negative (Negative) Urine RBC <1 (0-5) /hpf Urine WBC 2 (0-5) /hpf Hyaline Casts 3 H (0-2) /lpf Urine Mucus Occasional H (None) /hpf Critical Care Time Critical Care Time: Yes (30 minutes) Disposition Clinical Impression: Abdominal pain, Sepsis Disposition: Left Against Medical Advice Condition: Undetermined Prescriptions: Ciprofloxacin HCl [Cipro] 500 mg PO Q12HR #14 tablet metroNIDAZOLE [Flagyl] 500 mg PO TID #21 tab traMADol HCl [Ultram] 50 mg PO Q6H PRN #15 tab PRN Reason: Pain Is patient prescribed a controlled substance at d/c from ED?: Yes When asked, does pt state using other controlled substances?: No If prescribed controlled substance>3 days was MAPS reviewed?: Prescribed <3 Days If opioid is for acute pain is fill amount 7 days or less?: Yes If Rx opioid, was Start Talking consent form obtained?: Yes Referrals: Jeanmarie Reid DO [Primary Care Provider] - 1-2 days
[2019-12-24 01:27] VITALS: PULSE 81
[2019-12-24 02:02] VITALS: BP 145/81; RESP 19; TEMP 98.1
== END 2019-12-24 02:05 | disposition left against medical advice (07) ==
LOC: EC 21:40
DX: A41.9 Sepsis, unspecified organism (principal); R10.11 Right upper quadrant pain; I10 Essential (primary) hypertension; K50.90 Crohn's disease, unspecified, without complications; F41.9 Anxiety disorder, unspecified; Z79.1 Long term (current) use of non-steroidal anti-inflammatories (NSAID); Z79.899 Other long term (current) drug therapy; Z88.0 Allergy status to penicillin; Z90.49 Acquired absence of other specified parts of digestive tract; Z93.3 Colostomy status; Z98.890 Other specified postprocedural states; Z53.29 Procedure and treatment not carried out because of patient's decision for other reasons
CPT/HCPCS: 36415 ×2; 80053; 83605 ×2; 85025; 81001; 87040; 71046; 99284; 96365; 96375; 96376; 96361 ×2; J2270 ×2; J1956

== ENCOUNTER 2020-06-15 11:54 | Day surgery (SDC) | payer MEDICARE, OTHER ==
[2020-06-14 13:18] VITALS: BMI 41.1
[2020-06-15 13:05] VITALS: TEMP 98.4
[2020-06-15] MEDS ORDERED: LACTATED RINGERS 1,000 ML IV ONE (13:11)
[2020-06-15] MEDS ORDERED: LIDOCAINE 1% (10MG/ML) FOR IV START INTRADERMA ONE (13:11)
[2020-06-15] MEDS ORDERED: PROPOFOL 10 MG/ML 20 ML VIAL IV ONE (13:42)
[2020-06-15] MEDS ORDERED: LIDOCAINE 1% INJ 10MG/ML (20 ML MDV) ONE (13:42)
--- NOTE | 2020-06-15 14:09 | P.PCN ---
Date of Procedure: 06/15/20 Procedure(s) Performed: Brief history: Patient is a pleasant 55-year-old white male with history of Crohn's disease diagnosed at age 62, status post terminal ileum resection several years ago. is scheduled for an elective upper endoscopy as well as colonoscopy as a part of follow-up of large hepatic flexure polyp noted on a colonoscopy in December 2019. The polyp was partially removed and biopsies revealed tubular villous adenoma. He scheduled for repeat surveillance colonoscopy today. He is also complaining of some upper GI symptoms and hence scheduled for an upper endoscopy also. Procedure performed: Esophagogastroduodenoscopy with biopsy Colonoscopy with snare polypectomy Preoperative diagnosis: Epigastric pain Follow-up large hepatic flexure polyp noted 6 months ago Anesthesia: MAC Procedure: After informed consent was obtained from the patient was brought into the endoscopy unit and IV sedation was administered by anesthesia under continuous monitoring. Initially upper endoscopy was done. The Olympus GF 160 video endoscope was inserted inserted into the mouth and esophagus intubated without any difficulty and was gradually advanced into the stomach and duodenum and carefully examined. The bulb and second part of the duodenum appeared normal. The scope was then withdrawn into the stomach adequately insufflated with air and upon careful examination the antrum had mild gastritis and biopsies were done from this area. The body, cardia and fundus appeared normal. The scope was then withdrawn into the esophagus. The GE junction was located at 40 cm to the incisors. It appeared regular with no erythema erosions or ulcerations. biopsies were done from the distal esophagus.Rest of the esophagus appeared normal. Patient tolerated the procedure well. At this time the patient continued to remain sedation. Initial digital rectal examination was normal. Olympus CF 160 video colonoscope was then inserted into the rectum and gradually advanced to thright colonithout any difficulty. the anastomosis appeared normal. Careful examination was performed as the scope was gradually being withdrawn. The prep was excellent. In the hepatic flexure there was a 5 mm residual polyp noted which was removed by snare polypectomy. The , transverse colon, descending colon, sigmoid colon and rectum appeared normal. The rectum there was another 5 limited polyp removed by snare polypectomy. Retroflexion was performed in the rectum and no lesions were noted. Patient tolerated the procedure well. Impression: 1. Upper endoscopy revealed mild antral gastritis but no evidence of esophagitis or esophageal stricture 2. Colonoscopy revealed a 5 mm residual polyp in the hepatic flexure status post polypectomy. 5 mm rectal polyp status post polypectomy Recommendations: Findings of this examination were discussed with the patient as well as is family. He was advised to follow with the biopsy results. He was advised to have a repeat colonoscopy in 2 years.
[2020-06-15 14:14] VITALS: RESP 18
[2020-06-15 14:40] VITALS: BP 130/74; PULSE 70
== END 2020-06-15 15:00 | disposition home or self-care (01) ==
LOC: ORWHC2ENDO 11:54
PROVIDERS: ATTEND Internal Medicine Gastroenterology
DX: D12.3 Benign neoplasm of transverse colon (principal); K62.1 Rectal polyp; K29.50 Unspecified chronic gastritis without bleeding; K50.90 Crohn's disease, unspecified, without complications; I10 Essential (primary) hypertension; J45.909 Unspecified asthma, uncomplicated; E07.9 Disorder of thyroid, unspecified; Z90.49 Acquired absence of other specified parts of digestive tract; Z79.899 Other long term (current) drug therapy; Z88.0 Allergy status to penicillin; Z98.890 Other specified postprocedural states; Z90.89 Acquired absence of other organs; Z98.0 Intestinal bypass and anastomosis status
CPT/HCPCS: 88305; 45385; 43239; J2001; J2704

== ENCOUNTER 2020-07-06 15:36 | Emergency (ER) | payer MEDICARE, OTHER ==
[2020-07-06 15:44] VITALS: BP 202/107; PULSE 91; RESP 20; TEMP 98.9
--- NOTE | 2020-07-06 15:53 | ED ---
GI Bleed HPI - General Chief complaint: GI Bleed Stated complaint: Spitting up blood Time Seen by Provider: 07/06/20 15:51 Source: patient Mode of arrival: ambulatory Limitations: no limitations - History of Present Illness Initial comments: Alex is a 55-year-old male who presents the ER today via private vehicle for re-evaluation of coughing up blood. Patient reports that for over the past year he still feeling like there is something in the back of his throat that is bleeding. If he coughs multiple times he will have blood-streaked sputum. The blood is bright red. He has not had any bloody noses sore throat. He has followed with 2 different ENT, as well as gastroenterology. Despite having ENT and GI scopes they have not identified any source of bleeding. Patient reports that he noted 2 nights ago that there was again blood in his sputum. Patient brought a paper towel with blood speckled sputum with him to the ER for evidence. Patient states that he came in today because he wants to be scoped right now while he is bleeding so that the location of bleeding can be identified. - Related Data Home Medications Medication Instructions Recorded Confirmed Metoprolol Tartrate [Lopressor] 50 mg PO BID 03/15/14 06/14/20 Mesalamine [Delzicol] 800 mg PO TID 04/15/14 06/15/20 lisinopriL [Zestril] 10 mg PO DAILY 07/02/17 06/14/20 ALPRAZolam [Xanax] 1 mg PO HS PRN 11/24/19 06/15/20 Cetirizine HCl 10 mg PO DAILY 11/24/19 06/15/20 Turmeric Root Extract [Turmeric] 500 mg PO HS 11/24/19 06/15/20 Allergies Allergy/AdvReac Type Severity Reaction Status Date / Time Penicillins Allergy Rash/Hives Verified 07/06/20 15:44 Review of Systems ROS Statement: Those systems with pertinent positive or pertinent negative responses have been documented in the HPI. ROS Other: All systems not noted in ROS Statement are negative. Past Medical History Past Medical History: Asthma, GI Bleed, Hypertension, Thyroid Disorder Additional Past Medical History / Comment(s): CROHN'S, MASS ON BASE OF TONGUE, thyroid nodule right side, spitting up blood History of Any Multi-Drug Resistant Organisms: None Reported Past Surgical History: Bowel Resection, Cholecystectomy, Orthopedic Surgery, Tonsillectomy Additional Past Surgical History / Comment(s): BOWEL RESECTION W/COLOSTOMY AND LATER REVERSAL R/T CROHN'S VASECTOMY, lt leg with steel plate Past Anesthesia/Blood Transfusion Reactions: Previous Problems w/ Anesthesia Additional Past Anesthesia/Blood Transfusion Reaction / Comment(s): difficult intubation d/t small airway -has letter pt states indicates to use size 4 glidoscope Past Psychological History: Anxiety Smoking Status: Never smoker Past Alcohol Use History: None Reported Past Drug Use History: None Reported - Past Family History Mother Family Medical History: No Reported History General Exam - General Exam Comments Initial Comments: Physical Exam GENERAL: Patient is well-developed and well-nourished. Patient is nontoxic and well-hydrated and is in no distress. HENT: Normocephalic, Atraumatic. Nares are normal with no signs of bleeding Oropharynx with no injuries or sign of bleeding EYES: PERRL, EOMI PULMONARY: Unlabored respirations. CARDIOVASCULAR: RRR Warm and well perfused extremities ABDOMEN: Non-distended SKIN: No rashes or bruising No pallor : Deferred NEUROLOGIC: Alert and oriented Normal speech Normal gait MUSCULOSKELETAL: Moving all extremities with no apparent injury PSYCHIATRIC: No SI/HI Limitations: no limitations Course Vital Signs 07/06/20 15:42 Temperature 98.9 F Pulse Rate 91 Respiratory 20 Rate Blood Pressure 202/107 O2 Sat by Pulse 98 Oximetry Medical Decision Making - Medical Decision Making The patient was seen and evaluated history is obtained from the patient and review of medical record I advised the patient that given that he is hemodynamically stable with very minimal bleeding we will not: ENT for an emergent scope however I don't see any CT scans in the previous year and did offer to obtain blood work and computed tomography scan of his neck. Patient became agitated he stated that he came here to get scoped and if her Narcan to call somebody and to do a scope he'll just leave. I advised the patient that he should have a workup for persistent bleeding is he has a history of a massive this time basically could've changed. Patient declines any workup and left AGAINST MEDICAL ADVICE. Disposition Clinical Impression: Spitting up blood Disposition: Left Against Medical Advice Condition: Stable Instructions (If sedation given, give patient instructions): Gastrointestinal Bleeding (ED) Is patient prescribed a controlled substance at d/c from ED?: No Referrals: Jeanmarie Reid DO [Primary Care Provider] - 1-2 days
== END 2020-07-06 16:45 | disposition left against medical advice (07) ==
LOC: EC 15:36
DX: R04.2 Hemoptysis (principal); I10 Essential (primary) hypertension; F41.9 Anxiety disorder, unspecified; Z79.899 Other long term (current) drug therapy; Z88.0 Allergy status to penicillin; Z90.49 Acquired absence of other specified parts of digestive tract; Z53.29 Procedure and treatment not carried out because of patient's decision for other reasons
CPT/HCPCS: 99284

== ENCOUNTER 2020-07-25 06:58 | Day surgery (SDC) | payer MEDICARE, OTHER ==
[~2020-07-25 06:58] MED LIST changes: +CLINDAMYCIN 600 MG in DEXTROSE 5% IN WATER 50 ML IVPB PRN; +DEXAMETHASONE SOD PHOSPHATE 4 MG/ML 1 ML VIAL IV PRN; +FAMOTIDINE 20 MG/2 ML VIAL IV PRN; +LIDOCAINE 1% (10MG/ML) FOR IV START INTRADERMA PRN; +ONDANSETRON 4 MG/2 ML VIAL IVP PRN
[2020-07-25 07:29] VITALS: TEMP 97.9
[2020-07-25] MEDS ORDERED: LIDOCAINE 1% INJ 10MG/ML (20 ML MDV) ONE (08:36)
[2020-07-25] MEDS ORDERED: NALOXONE 0.4 MG/ML 1 ML VIAL ONE (08:36)
[2020-07-25] MEDS ORDERED: DEXAMETHASONE SOD PHOSPHATE 10 MG/ML 1 ML VIAL ONE (08:36)
[2020-07-25] MEDS ORDERED: SUCCINYLCHOLINE CHLORIDE VIAL 200 MG/10 ML VIAL IV ONE (08:36)
[2020-07-25] MEDS ORDERED: MIDAZOLAM 2 MG/2 ML VIAL ONE (08:36)
[2020-07-25] MEDS ORDERED: fentaNYL (PF) 50 MCG/ML 2 ML AMP ONE (08:36)
[2020-07-25] MEDS ORDERED: PHENYLEPHRINE-0.9% NACL SYG 1,000 MCG/10 ML SYRINGE ONE (08:36)
[2020-07-25] MEDS ORDERED: PROPOFOL 10 MG/ML 20 ML VIAL IV ONE (08:36)
--- NOTE | 2020-07-25 09:17 | P.OP ---
Date of Procedure: 07/25/20 Preoperative Diagnosis: Hemoptysis, spitting up blood Postoperative Diagnosis: Same Procedure(s) Performed: Direct microlaryngoscopy with biopsy left piriform sinus Anesthesia: TONYA Surgeon: Mario Hansen Estimated Blood Loss (ml): 1 Pathology: other (Left piriform sinus biopsy) Condition: stable Disposition: PACU Indications for Procedure: This 55-year-old white male who for about a year has had intermittent spitting up blood. He's had EGD which was negative he is undergoing pulmonary workup with CT pending and possible bronchoscopy depending on these findings Operative Findings: There was some minimal blood streaking in the area of the left piriform sinus. The mucosa had some mild erythema of the left piriform sinus and therefore biopsy was taken although no obvious mass was noted. Description of Procedure: The patient was brought in the operative suite and placed in supine position. Patient underwent induction of general anesthesia with oral endotracheal intubation with kaleidoscope without difficulty. The patient was prepped and draped in the usual aseptic fashion. Tooth guard was placed. Direct laryngoscopy was performed with systematic evaluation of the base of tongue vallecula both piriform sinuses post cricoid area and endolarynx. There was some minimal blood streaking in the left piriform sinus although this is unknown as to whether this was due to the intubation although this was an area that the patient thought he had some irritation at times where he pointed externally in the neck. There was some mild erythema closed at the base of the piriform sinus on the left and therefore 2 small biopsies were taken of this area under microscopy.. Hemostasis was gained with silver nitrate cauterization. The patient was then allowed to emerge from general anesthesia having tolerated procedure well was extubated in the operating suite and transferred to postop recovery area in satisfactory condition.
[2020-07-25] MEDS ORDERED: LACTATED RINGERS 1,000 ML IV ONE (10:14)
[2020-07-25 10:57] VITALS: BP 134/84; PULSE 82; RESP 18
== END 2020-07-25 11:01 | disposition home or self-care (01) ==
LOC: OR 06:58
PROVIDERS: ATTEND Otolaryngology
DX: R04.2 Hemoptysis (principal); I10 Essential (primary) hypertension; I51.9 Heart disease, unspecified; J45.909 Unspecified asthma, uncomplicated; Z79.899 Other long term (current) drug therapy; Z88.0 Allergy status to penicillin; Z88.8 Allergy status to other drugs, medicaments and biological substances; Z82.49 Family history of ischemic heart disease and other diseases of the circulatory system; Z82.5 Family history of asthma and other chronic lower respiratory diseases; Z80.0 Family history of malignant neoplasm of digestive organs
CPT/HCPCS: 88305; 31536; J2250; J0330; J1100 ×2; J2310; J2405; J2001; J3010; J2370; J2704

== ENCOUNTER → 2020-07-27 | Outpatient (CLI) | payer MEDICARE, OTHER ==
--- NOTE | 2020-07-28 09:30 | CT ---
EXAMINATION TYPE: CT chest w con DATE OF EXAM: 07/27/2020 COMPARISON: None HISTORY: hemoptysis CT DLP: 656.9 mGycm Automated exposure control for dose reduction was used. TECHNIQUE: CT scan of the chest is performed with IV Contrast, patient injected with 100 mL of Isovue 300. MIP Images are created on CT scanner and reviewed. 3D reconstructed images are created on an independent workstation and reviewed. FINDINGS: LUNGS: Linear subsegmental changes in the right upper lobe most typical of atelectasis. Correlate cli nically. No pneumothorax or pleural effusion. Single 3 mm nodule left upper lobe lingular segment. 2 punctate 1 to 2 mm nodule medial segment right lower lobe airway appears to be patent. MEDIASTINUM: There are no greater than 1 cm hilar or mediastinal lymph nodes. Heart size normal. Mini mal coronary artery calcification. No pericardial effusion. Pulmonary arteries are normal caliber. Th e aorta. OTHER: Mild diffuse low-attenuation liver suggesting hepatic steatosis. Postcholecystectomy changes seen mild hypertrophic change of the vertebral column. There is a 1 cm right thyroid inferior pole no dule. IMPRESSION: 1. Subsegmental changes right upper lobe felt to be more typical of atelectasis than early correlate clinically. 2. Bilateral sub-5 mm pulmonary nodules too small to characterize. Recommend 12 month follow-up. 3. Correlate for hepatic steatosis. 4. 1 cm right thyroid nodule.
== END | disposition home or self-care (01) ==
LOC: RADCTMAIN 17:47
PROVIDERS: ATTEND Internal Medicine Critical Care Medicine
DX: R91.8 Other nonspecific abnormal finding of lung field (principal)
CPT/HCPCS: 71260; Q9967

== ENCOUNTER → 2020-11-13 | Outpatient (CLI) | payer MEDICARE, OTHER ==
--- NOTE | 2020-11-13 19:57 | CONS ---
CONSULTATION REASON FOR CONSULTATION: Sleep apnea. HISTORY OF PRESENT ILLNESS: This patient was referred to me for concerns of sleep apnea. This is not only his main complaint. He does have other multiple issues mainly issues that have been evaluated and treated by ENT including Dr. Jem Quarles and Dr. Hansen and in addition to Dr. Landry santiago from General surgery and Gastroenterology. Note that this patient was having difficulties with throat discomfort, questionable lesion in the base of his tongue in addition to a few episodes of coughing up some bright red blood that requires further investigation by all the specialists and he did have upper airway evaluations by ENT and EGDs by Gastroenterology and no malignancy was identified and the patient was told to have some benign lesions that were essentially nonsignificant. His EGD came back also negative and there was no upper GI source of bleeding. Furthermore, he is going to be seen by oral surgery as the patient is having issues with tooth pain and some periodontal disease. Note that the patient has previous history of Crohn's disease and he has undergone previous bowel resection. Currently, his disease seems to be quite inactive and stable. He does have also thyroid nodules being monitored by serial ultrasounds and multiple pulmonary nodules, which are being followed up in our office with serial CT scans. In terms of sleep apnea, he does have loud snoring, excessive hypersomnia and sleepiness. He goes to bed around 10 p.m., wakes up 8:00 am in the morning and he has chronic fatigue and sleepiness and drowsiness. [place] Score is 9. There is a genuine concern for underlying obstructive sleep apnea in this patient. PAST MEDICAL HISTORY: Hypertension, anxiety, Crohn's disease, thyroid nodules, pulmonary nodules. PAST SURGICAL HISTORY: Includes EGD, colonoscopy and frequency of bowel resection for colon cancer, previous history of polypectomy that turned out to be precancer and is being monitored very closely by Dr. Roque. DRUG ALLERGIES: PENICILLIN. OUTPATIENT MEDICATION: Includes metoprolol, Lisinopril, and Xanax. SOCIAL HISTORY: Nonsmoker. No history of alcoholism. No history of IV drugs. FAMILY HISTORY: Noncontributory. REVIEW OF SYSTEMS: Fourteen-point review of system was done. Positive findings are mentioned in history of present illness. PHYSICAL EXAMINATION: BP is 160/96, pulse 72, respirations 16, temperature 97.8. Saturation is 99% on room air. [place] Score is 9. Neck size is 20 inches, BMI 39.7. Height is 5 feet 11 inches. Weight is 289 and saturation 98% on room air. GENERAL appearance: Calm, comfortable. HEAD atraumatic, normocephalic. NECK: Supple. There is no JVD. No goiter. No neck mass. Mallampati class 4. LUNGS: Diminished, otherwise clear. HEART: Heart sounds are regular rate and rhythm. Normal S1, S2. No S3, no murmurs. ABDOMEN: Soft, nontender. No organomegaly. EXTREMITIES: No edema. No cyanosis or clubbing. NEUROLOGIC: Awake and alert. There are no focal neurological deficits. IMPRESSION: 1. Hypersomnia with obvious anatomic features to suggest obstructive sleep apnea. This needs to be further investigated. 2. Pulmonary nodule is being surveilled at the pulmonary office. 3. Thyroid nodules receiving serial ultrasounds. 4. Questionable benign lesion at the base of the tongue, resected. 5. Crohn's disease. 6. Precancerous colonic polyp resected. 7. Anxiety. 8. Hypertension. 9. Obesity with a BMI 39.7. 10.Dental disease/periodontal disease. Awaiting an evaluation by Dr. Garduno. PLAN: 1. We will proceed with a home sleep study. Evaluate this patient for underlying sleep apnea. 2. Continue the followup with the rest of the consultants including his specialist from oral surgery, ENT and Gastroenterology. 3. Encourage weight loss. 4. We will continue to follow. We will discuss the findings with the patient once home sleep study is completed, the patient will see me back in the Pulmonary office where we can deal with his pulmonary issues and sleep apnea if any. MMODL / IJN: [id number] /
== END ==
LOC: SLEEP 14:39
PROVIDERS: ATTEND Internal Medicine Critical Care Medicine
DX: G47.10 Hypersomnia, unspecified (principal); R91.8 Other nonspecific abnormal finding of lung field; E04.1 Nontoxic single thyroid nodule; K50.90 Crohn's disease, unspecified, without complications; F41.9 Anxiety disorder, unspecified; E66.9 Obesity, unspecified; I10 Essential (primary) hypertension; K08.89 Other specified disorders of teeth and supporting structures; Z68.39 Body mass index [BMI] 39.0-39.9, adult; Z88.0 Allergy status to penicillin; Z88.8 Allergy status to other drugs, medicaments and biological substances; Z98.890 Other specified postprocedural states; Z79.899 Other long term (current) drug therapy
CPT/HCPCS: 99211

== ENCOUNTER → 2020-12-24 | Outpatient (CLI) | payer MEDICARE, OTHER ==
--- NOTE | 2020-12-24 12:32 | US ---
EXAMINATION TYPE: US thyroid st tissue head/neck DATE OF EXAM: 12/24/2020 COMPARISON: 10/28/2018 CLINICAL HISTORY: E04.1 Right thyroid nodule. Thyroid nodule follow up GLAND SIZE: Right Lobe: 6.1 x 3.0 x 3.1 cm Overall Parenchyma: heterogenous Left Lobe: 4.5 x 2.0 x 1.8 cm Overall Parenchyma: heterogeneous Isthmus Thickness: 0.8 cm NODULES RIGHT: # of nodules measured on right: 2 1. 2.1 X 2.0 x 1.8 cm, upper mid, solid or almost completely solid, isoechoic nodule, which is wide r than tall, with smooth margins, without echogenic foci. Prior size: 1.9 x 1.5 x 2.1 cm 2. 1.4 X 1.0 x 0.9 cm, mid, mixed cystic and solid, hypoechoic nodule, which is wider than tall, wi th smooth margins, without echogenic foci. Prior size: 1.4 x 1.0 x 1.2 cm LEFT: # of nodules measured on left: 0 ISTHMUS: # of nodules measured in the isthmus: 0 Bilateral neck scanned, no evidence of lymphadenopathy. IMPRESSION: 1. Mildly suspicious nodule right lobe thyroid. Follow-up in one year is recommended. 2017 ACR TI-RADS LEVEL: TR-RADS 3 - Mildly Suspicious: Follow if > 1.5 cm, FNA if > 2.5 cm *Highest TI-RADS level nodule reported
== END | disposition home or self-care (01) ==
LOC: RADUSWWP 08:38
PROVIDERS: ATTEND Otolaryngology
DX: E04.2 Nontoxic multinodular goiter (principal)
CPT/HCPCS: 76536

== ENCOUNTER 2021-01-14 07:16 | Inpatient (IN) | payer MEDICARE, OTHER ==
--- NOTE | 2021-01-14 08:15 | ED ---
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 This is For several days he states is very anxious not able sleep recently he did take his blood pressure medication as well as he took Xanax last night. He did she states because of some discomfort in his throat he started taking doxycycline th at he had a home 4 days ago he states he believes are some white spots on his throat. No fevers chills nausea vomiting sweats or other symptoms no shortness of breath. He had no prior history of heart disease or stroke like presentations. MD Complaint: chest pain, other - Related Data Home Medications Medication Instructions Recorded Confirmed Metoprolol Tartrate [Lopressor] 50 mg PO BID 03/15/14 01/14/21 lisinopriL [Zestril] 10 mg PO DAILY 07/02/17 01/14/21 ALPRAZolam [Xanax] 0.5 - 1 mg PO TID PRN 11/24/19 01/14/21 Acetaminophen Tab [Tylenol] 325 mg PO Q4H PRN 01/14/21 01/14/21 Doxycycline Hyclate 100 mg PO BID 01/14/21 01/14/21 Allergies Allergy/AdvReac Type Severity Reaction Status Date / Time Penicillins Allergy Rash/Hives Verified 01/14/21 08:58 Review of Systems ROS Statement: Those systems with pertinent positive or pertinent negative responses have been documented in the HPI. ROS Other: All systems not noted in ROS Statement are negative. EKG Findings - EKG Results: EKG: interpreted by ERMD, sinus rhythm, normal axis, normal QRS, normal ST/T, no acute changes (Normal sinus rhythm a 77 CA interval 156 QRS duration 92 QT since QTC 380/4:30) Past Medical History Past Medical History: Asthma, GI Bleed, Hypertension, Thyroid Disorder Additional Past Medical History / Comment(s): PATIENT STATES HE HAS HAD HEMOPTYSIS FOR ABOUT A YEAR (EGD, COLONOSCOPY HAVE BEEN NEGATIVE FOR BLEEDING). CROHN'S. MASS ON BASE OF TONGUE, BENIGN, NOT REMOVED. Thyroid nodule right side. History of Any Multi-Drug Resistant Organisms: None Reported Past Surgical History: Bowel Resection, Cholecystectomy, Orthopedic Surgery, Tonsillectomy Additional Past Surgical History / Comment(s): BOWEL RESECTION W/COLOSTOMY AND LATER REVERSAL R/T CROHN'S . VASECTOMY. lt leg with steel plate (STRAIGHTEN LEG. LONG STORY). Past Anesthesia/Blood Transfusion Reactions: Previous Problems w/ Anesthesia Additional Past Anesthesia/Blood Transfusion Reaction / Comment(s): difficult intubation d/t small airway -has letter pt states indicates to use size 4 glidoscope Past Psychological History: Anxiety Smoking Status: Never smoker Past Alcohol Use History: None Reported Past Drug Use History: None Reported - Past Family History Mother Family Medical History: No Reported History General Exam - General Exam Comments Initial Comments: This is a well-developed well-nourished awake alert oriented times 3 male Limitations: no limitations General appearance: alert, anxious Head exam: Present: atraumatic, normocephalic, normal inspection Eye exam: Present: normal appearance, PERRL, EOMI. Absent: scleral icterus, conjunctival injection, periorbital swelling ENT exam: Present: mucous membranes moist, other (Some posterior pharyngeal hyperemia questionable exudate) Neck exam: Present: normal inspection. Absent: tenderness, meningismus, lymphadenopathy Respiratory exam: Present: normal lung sounds bilaterally. Absent: respiratory distress, wheezes, rales, rhonchi, stridor Cardiovascular Exam: Present: regular rate, normal rhythm, normal heart sounds. Absent: systolic murmur, diastolic murmur, rubs, gallop, clicks GI/Abdominal exam: Present: soft, normal bowel sounds. Absent: distended, tenderness, guarding, rebound, rigid Extremities exam: Present: normal inspection, full ROM, normal capillary refill. Absent: tenderness, pedal edema, joint swelling, calf tenderness Back exam: Present: normal inspection Neurological exam: Present: alert, oriented X3, CN II-XII intact Psychiatric exam: Present: normal affect, normal mood Skin exam: Present: warm, dry, intact, normal color. Absent: rash Course Vital Signs 01/14/21 01/14/21 01/14/21 07:31 08:23 09:32 Temperature 97.9 F Pulse Rate 74 72 67 Respiratory 20 18 18 Rate Blood Pressure 186/95 186/113 160/104 O2 Sat by Pulse 95 97 96 Oximetry 01/14/21 01/14/21 10:00 11:52 Temperature Pulse Rate 66 73 Respiratory 18 18 Rate Blood Pressure 161/97 156/92 O2 Sat by Pulse 95 97 Oximetry Chest Pain MDM - MDM Imaging reviewed no acute findings. Patient currently is pain-free with respect to chest pain he symptoms are suspicious for ACS patient will be admitted case was discussed with the patient as well as Dr. Luo. Disposition Clinical Impression: Unstable angina pectoris, Chest pain Disposition: ADMITTED IP TO THIS HOSP Condition: Stable Referrals: Jeanmarie Reid DO [Primary Care Provider] - 1-2 days
[2021-01-14 08:23] LABS: Basophils # (A) 0.1 k/uL (0-0.2); Basophils % (A) 1 %; Eosinophils # (A) 0.2 k/uL (0-0.7); Eosinophils % (A) 2 %; HGB 14.7 gm/dL (13.0-17.5); Hypochromasia Slight; Lymphocytes # (A) 1.8 k/uL (1.0-4.8); Lymphocytes % (A) 19 %; MCH 31.8 pg (25.0-35.0); MCHC 33.4 g/dL (31.0-37.0); MCV 95.4 fL (80.0-100.0); Mean Platelet Volume 7.7; Monocytes # (A) 0.4 k/uL (0-1.0); Monocytes % (A) 4 %; Neutrophils # (A) 6.8 k/uL (1.3-7.7); Neutrophils % (A) 71 %; Platelet Count 212 k/uL (150-450); Poikilocytosis Slight; RBC 4.61 m/uL (4.30-5.90); RDW 14.7 % (11.5-15.5); WBC 9.5 k/uL (3.8-10.6)
--- NOTE | 2021-01-14 08:25 | CT ---
EXAMINATION TYPE: CT brain wo con DATE OF EXAM: 01/14/2021 HISTORY: Headache, acute onset neuro deficit CT DLP: 1173.4 mGycm. Automated Exposure Control for Dose Reduction was Utilized. TECHNIQUE: CT scan of the head is performed without contrast. COMPARISON: MRI brain March 06, 2015. FINDINGS: There is no acute intracranial hemorrhage or midline shift identified. Ventricles and sul ci within normal limits in size for patient's age. [place]ona-white matter differentiation is maintained. M oderate lobulated mucosal thickening right maxillary sinus remains present. Mild mucosal thickening i nferior left maxillary sinus improved from prior. Globes are intact bilaterally. IMPRESSION: No acute intracranial hemorrhage or midline shift. 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
[2021-01-14 08:36] LABS: INR 0.9 (<1.2); Partial Thromboplastin Time 24.7 sec (22.0-30.0); Prothrombin Time 9.9 sec (9.0-12.0)
[2021-01-14 08:42] LABS: ALT 34 U/L (4-49); AST 29 U/L (17-59); African American GFR (CKD) >90 (>60 ml/min/1.73 sqM); Albumin 4.3 g/dL (3.5-5.0); Alkaline Phosphatase 54 U/L (38-126); Anion Gap 11 mmol/L; Blood Urea Nitrogen 10 mg/dL (9-20); Calcium 9.9 mg/dL (8.4-10.2); Carbon Dioxide 22 mmol/L (22-30); Chloride 111 mmol/L (98-107); Creatine Kinase 58 U/L (55-170); Glucose 114 mg/dL (74-99); Lipase 84 U/L (23-300); Magnesium 1.7 mg/dL (1.6-2.3); Non-African American GFR(CKD) >90 (>60 ml/min/1.73 sqM); Potassium 3.8 mmol/L (3.5-5.1); Sodium 144 mmol/L (137-145); Total Bilirubin 0.8 mg/dL (0.2-1.3); Total Protein 6.9 g/dL (6.3-8.2)
--- NOTE | 2021-01-14 09:22 | XR ---
EXAMINATION TYPE: XR chest 2V DATE OF EXAM: 01/14/2021 COMPARISON: 12/23/2019 HISTORY: Shortness of breath TECHNIQUE: Frontal and lateral views of the chest are obtained. FINDINGS: Scattered senescent parenchymal changes noted. Hyperinflation compatible with COPD. No evidence for infiltrate. No evidence for atelectasis. Heart size is stable. Mediastinal structures are stable and grossly unremarkable. No evidence for hilar prominence. Degenerative changes dorsal spine. IMPRESSION: 1. No evidence for acute pulmonary disease.
[2021-01-14] MEDS ORDERED: KETOROLAC 15 MG/ML 1 ML VIAL IVP STA (09:34)
[2021-01-14] MEDS ORDERED: NITROGLYCERIN SL TABS 0.4 MG TAB SUBLINGUAL PRN (12:34)
[2021-01-14] MEDS ORDERED: HEPARIN SODIUM 1,000 UN/ML (10ML VL) IV ONE (12:34)
[2021-01-14] MEDS ORDERED: ACETAMINOPHEN TAB 325 MG TAB PO PRN (12:38)
[2021-01-14] MEDS ORDERED: HEPARIN SOD,PORK IN 0.45% NACL 25,000 UNIT in 0.45% NACL 1 250ML.BAG IV SCH (12:45)
[2021-01-14] MEDS ORDERED: SODIUM CHLORIDE 0.9% 1,000 ML IV SCH (12:45)
[2021-01-14] MEDS: ALPRAZolam 1 MG TAB PO PRN (13:45)
[2021-01-14] MEDS: TRIAMTERENE-HCTZ 37.5-25MG 1 EACH CAP PO SCH (13:49)
[2021-01-14] MEDS ORDERED: hydrALAZINE HCL 25 MG TAB PO PRN (15:05)
[2021-01-14] MEDS: BENZOCAINE/MENTHOL LOZENG 1 EACH LOZENGE MUCOUS MEM PRN (17:00)
--- NOTE | 2021-01-14 17:08 | ECHOF ---
Referral Reason:Chest pain MEASUREMENTS -------- HEIGHT: 182.9 cm WEIGHT: 127.0 kg BP: 156/92 IVSd: 1.3 cm (0.6 - 1.1) LVIDd: 5.6 cm (3.9 - 5.3) LVPWd: 1.2 cm (0.6 - 1.1) EDV(Teich): 153 ml IVSs: 1.7 cm LVIDs: 3.6 cm LVPWs: 1.9 cm %IVS Thck: 30 % ESV(Teich): 54 ml EF(Teich): 64 % %FS: 36 % SV(Teich): 98 ml LA Diam: 3.4 cm (2.7 - 3.8) RVIDd: 3.1 cm (< 3.3) LALs A4C: 5.3 cm LAAs A4C: 17.7 cm LAESV A-L A4C: 50 ml LAESV MOD A4C: 49 ml LALs A2C: 5.5 cm LAAs A2C: 17.6 cm LAESV A-L A2C: 48 ml LAESV MOD A2C: 46 ml LAESV(A-L): 50 ml LAESV Index (A-L): 20.37 ml/m Ao Diam: 3.7 cm (2.0 - 3.7) AV Cusp: 2.4 cm (1.5 - 2.6) EPSS: 0.9 cm MV E Elvin: 0.89 m/s MV DecT: 232 ms MV Dec [place]: 3.9 m/s MV A Elvin: 0.91 m/s MV E/A Ratio: 0.98 MV PHT: 67 ms AV Vmax: 1.19 m/s AV maxP.69 mmHg TR Vmax: 2.63 m/s TR maxP.61 mmHg RAP: 5.00 mmHg RVSP: 32.61 mmHg MV EF SLOPE: 143.82 mm/s (70 - 150) MV EXCURSION: 20.48 mm (> 18.000) FINDINGS -------- Sinus rhythm. This was a technically adequate study. The left ventricular size is normal. There is mild concentric left ventricular hypertrophy. Overa ll left ventricular systolic function is normal with, an EF between 60 - 65 %. The right ventricle is normal in size. Normal LA size by volume 22+/-6 ml/m2. The right atrium is normal in size. Interatrial and interventricular septum intact. The aortic valve is trileaflet, and appears structurally normal. No aortic stenosis or regurgitation. There is trace to mild mitral regurgitation. Mild tricuspid regurgitation present. Right ventricular systolic pressure is normal at < 35 mmHg. Trace/mild (physiologic) pulmonic regurgitation. The aortic root size is normal. Normal inferior vena cava with normal inspiratory collapse consistent with estimated right atrial pre ssure of 5 mmHg. There is no pericardial effusion. CONCLUSIONS -------- 1. The left ventricular size is normal. 2. There is mild concentric left ventricular hypertrophy. 3. Overall left ventricular systolic function is normal with, an EF between 60 - 65 %. 4. The aortic valve is trileaflet, and appears structurally normal. No aortic stenosis or regurgitati on. 5. There is trace to mild mitral regurgitation. 6. Mild tricuspid regurgitation present. 7. Trace/mild (physiologic) pulmonic regurgitation. 8. There is no pericardial effusion. INFRASTRUCTURE DIRECTOR: Smiley Davila RDCS
[2021-01-14] MEDS ORDERED: NITROGLYCERIN OINT 1 INCH/GM PACKET TOPICAL SCH (18:00)
[2021-01-14] MEDS ORDERED: METOPROLOL TARTRATE 50 MG TAB PO SCH (21:00)
[2021-01-14] MEDS: DOXYCYCLINE 100 MG CAP PO SCH (21:10)
[2021-01-14] MEDS: lisinopriL 10 MG TAB PO SCH (21:10)
[2021-01-14] MEDS: METOPROLOL TARTRATE 25 MG TAB PO SCH (21:10)
[2021-01-14] MEDS: ATORVASTATIN 20 MG TAB PO SCH (21:10)
[2021-01-15 04:46] LABS: Chol/HDL Ratio 4.21; LDL Cholesterol,Calculated 51.2 mg/dL (0.0-131.0); VLDL Calculation 73.8 mg/dL (5.00-40.00)
[2021-01-15] MEDS: BENZOCAINE/MENTHOL LOZENG 1 EACH LOZENGE MUCOUS MEM PRN ×2 (07:27→14:56)
[2021-01-15] MEDS ORDERED: lisinopriL 10 MG TAB PO SCH (09:00)
[2021-01-15] MEDS ORDERED: ASPIRIN 325 MG TAB PO SCH (09:00)
[2021-01-15] MEDS: TRIAMTERENE-HCTZ 37.5-25MG 1 EACH CAP PO SCH (09:02)
[2021-01-15] MEDS: DOXYCYCLINE 100 MG CAP PO SCH ×2 (09:02→20:05)
[2021-01-15] MEDS: METOPROLOL TARTRATE 25 MG TAB PO SCH ×2 (09:02→20:05)
[2021-01-15] MEDS: lisinopriL 10 MG TAB PO SCH ×2 (09:45→20:05)
--- NOTE | 2021-01-15 10:38 | P.PN ---
Subjective HISTORY OF PRESENTING ILLNESS This is a pleasant 55-year-old male past medical history significant for hypertension, anxiety, hypothyroidism and benign nodule on the tongue. 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 We have been asked to see in consultation for chest pain. He describes the chest heaviness in the left precordial region that has been intermittent and ongoing for the previous one week peripheral by stress. He has some associated heart racing and dizziness. Is also having some trouble swallowing and pain which she describes as chronic but worsening recently. He denies associated shortness of breath, nausea, vomiting or diaphoresis. DIAGNOSTICS EKG reveals it is mechanism with no acute ST or T wave abnormalities noted. Chest xray negative for an acute cardiopulmonary process. Laboratory reviewed, CBC unremarkable, d-dimer 0.44, sodium 144, potassium 3.8, creatinine 0.81, cardiac enzymes negative 1. Current cardiac medications include Lopressor 50 mg twice a day and lisinopril 10 mg daily. 01/15/2021 Pt seen and examined sitting up in bed in no acute distress. He had another episodes this morning of what he describes as anxiety with chest pain and shortness of breath. Repeat EKG unremarkable. Blood pressure 162/94 heart rate 72 afebrile and maintaining oxygen saturation on room air. Laboratory data reviewed, cardiac enzymes negative 3, LDL 51, HDL 39 and total cholesterol 164. PHYSICAL EXAMINATION CONSTITUTIONAL: No apparent distress. HEENT: Head is normocephalic. Pupils are equal, round. Sclerae anicteric. Mucous membranes of the mouth are moist. No JVD. No carotid bruit. CHEST EXAMINATION: Lungs are clear to auscultation. No chest wall tenderness is noted on palpation or with deep breathing. HEART EXAMINATION: Regular rate and rhythm. S1, S2 heard. No murmurs, gallops or rub. EXTREMITIES: 2+ peripheral pulses, no lower extremity edema and no calf tenderness. ASSESSMENT Chest pain, atypical Hypertension, uncontrolled Anxiety Obesity, BMI 38 PLAN Continue current medical regimen. Recommend avoiding hydralazine PO or IV. This way we can accurately assess where his blood pressure is on PO pills. The goal with him is to wean down his lopressor completely and continue to optimize his lisinopril to maximum tolerated dose. This will be managed in the outpatient setting with Dr. Childress. He will pursue stress testing once his blood pressure is controlled. He can be discharged home from a cardiac perspective. Follow up with Dr. Childress in 2-3 weeks. Nurse Practitioner note has been reviewed, I agree with a documented findings and plan of care. Patient was seen and examined. Objective - Vital Signs Vital signs: Vital Signs Temp 97.8 F 01/15/21 07:00 Pulse 72 01/15/21 07:00 Resp 20 01/15/21 07:00 BP 162/94 01/15/21 07:00 Pulse Ox 97 01/15/21 08:38 Intake & Output 01/14/21 01/15/21 01/15/21 18:59 06:59 18:59 Weight 127.006 kg Other: Voiding Method Toilet # Voids 1 1 - Labs CBC & Chem 7: 01/14/21 08:07 01/14/21 08:07 Labs: Abnormal Lab Results - Last 24 Hours (Table) 01/14/21 Range/Units 08:07 Triglycerides 369.0 H (0.0-149.0) mg/dL VLDL Cholesterol, Calc 73.80 H (5.00-40.00) mg/dL HDL Cholesterol 39.0 L (40.0-60.0) mg/dL Microbiology - Last 24 Hours (Table) 01/14/21 08:07 Group A Strep Throat Culture - Preliminary Throat
--- NOTE | 2021-01-15 11:35 | P.CNPUL ---
History of Present Illness Consult date: 01/15/21 Requesting physician: Venkata Luo Reason for consult: other Chief complaint: Hemoptysis. History of present illness: Pulmonary consult dated 01/15/2021. 55-year-old male who was admitted to the emergency department, with chest pain. The patient feels like there is pressure in his left chest, with radiation down his left arm. 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 We were consulted primarily because he isn't been having episodes of what he thinks is coughing up blood. He can taste the blood in his mouth from time to time. He has been seeing a urine nose and throat doctor. He apparently had a laryngoscopy. He also apparently had biopsy of thyroid nodules and also biopsy of a lesion in his neck area. He does have a history of Crohn's disease. It's hard to know whether or not he's of vomiting up blood, spitting up blood, or coughing up blood. He is not real specific. We decided to go ahead and perform bronchoscopy on the patient to further evaluate her lower respiratory tract. He apparently carries with him a diagnosis of asthma, GI bleed, hypertension, and thyroid nodules. The patient was previously and recently seen by our nurse practitioner in the office. A CAT scan apparently was ordered, and showed some small pulmonary nodules. Nothing else in the way of an abnormality was seen on the Patient. To put the issue at rest, the plan is to go ahead and do a bronchoscopy tomorrow. CBC is completely normal. PT, INR, PTT, and d-dimer are normal. Sodium 144, potassium 3.8, chlorides 111, CO2 22, anion gap 11, BUN 10, creatinine 0.81. Chest x-ray was normal. Review of Systems REVIEW OF SYSTEMS: CONSTITUTIONAL: [Negative.] NEUROLOGIC: [ Negative.] HEENT: [ Negative.] CARDIAC: Chest pain. PULMONARY: Questionable hemoptysis. GI: [Negative.] : [Negative.] RHEUMATOLOGIC: [ Negative.] IMMUNOLOGIC: [ Negative.] ENDOCRINE: [Negative. ] DERMATOLOGIC: [Negative.] Past Medical History Past Medical History: Asthma, GI Bleed, Hypertension, Thyroid Disorder Additional Past Medical History / Comment(s): PATIENT STATES HE HAS HAD HEMOPTYS IS FOR ABOUT A YEAR (EGD, COLONOSCOPY HAVE BEEN NEGATIVE FOR BLEEDING). CROHN'S. MASS ON BASE OF TONGUE, BENIGN, NOT REMOVED. Thyroid nodule right side. History of Any Multi-Drug Resistant Organisms: None Reported Past Surgical History: Bowel Resection, Cholecystectomy, Orthopedic Surgery, Tonsillectomy Additional Past Surgical History / Comment(s): BOWEL RESECTION W/COLOSTOMY AND LATER REVERSAL R/T CROHN'S . VASECTOMY. lt leg with steel plate (STRAIGHTEN LEG. LONG STORY). Past Anesthesia/Blood Transfusion Reactions: Previous Problems w/ Anesthesia Additional Past Anesthesia/Blood Transfusion Reaction / Comment(s): difficult intubation d/t small airway -has letter pt states indicates to use size 4 glidoscope Past Psychological History: Anxiety Additional Psychological History / Comment(s): VERY ANXIOUS AND FRUSTRATED THAT NO CAUSE FOUND FOR HEMOPTYSIS. Smoking Status: Never smoker Past Alcohol Use History: None Reported Past Drug Use History: None Reported - Past Family History Mother Family Medical History: No Reported History Medications and Allergies Home Medications Medication Instructions Recorded Confirmed Type ALPRAZolam [Xanax] 0.5 - 1 mg PO TID PRN 11/24/19 01/14/21 History Acetaminophen Tab [Tylenol] 325 mg PO Q4H PRN 01/14/21 01/14/21 History Doxycycline Hyclate 100 mg PO BID 01/14/21 01/14/21 History Atorvastatin [Lipitor] 20 mg PO HS #90 tab 01/15/21 Rx Metoprolol Tartrate [Lopressor] 25 mg PO BID tab 01/15/21 Rx Triamterene-Hctz 37.5-25Mg 1 each PO DAILY #90 cap 01/15/21 Rx [Dyazide 37.5-25 Capsule] lisinopriL [Zestril] 10 mg PO BID tab 01/15/21 Rx Allergies Allergy/AdvReac Type Severity Reaction Status Date / Time Penicillins Allergy Rash/Hives Verified 01/14/21 08:58 Physical Exam Osteopathic Statement: *. No significant issues noted on an osteopathic structural exam other than those noted in the History and Physical/Consult. Vitals: Vital Signs Temp Pulse Pulse Resp BP BP Pulse Ox 01/15/21 08:38 97 01/15/21 08:00 20 01/15/21 07:00 97.8 F 72 20 162/94 98 01/15/21 02:00 97.7 F 62 20 123/76 98 01/14/21 20:00 97.5 F L 76 20 134/84 97 01/14/21 15:32 98.5 F 78 16 162/100 96 01/14/21 14:48 98 F 74 16 184/100 97 01/14/21 14:06 168/97 01/14/21 13:50 172/100 01/14/21 13:30 97.8 F 79 18 203/126 98 01/14/21 11:52 73 18 156/92 97 Intake and Output 01/14/21 01/15/21 01/15/21 22:59 06:59 14:59 Other: Voiding Method Toilet Toilet # Voids 1 1 Weight 127.006 kg No acute distress, oriented 3. HEENT examination is grossly unremarkable. Neck supple. Full range of motion. No adenopathy thyromegaly or neck vein distention. Cardiovascular examination reveals regular rhythm rate. S1-S2 normal. No S3 or S4. No discernible murmur noted. Heart sounds are distant. Heart rate 72 bpm. Lungs reveal clear breath sounds. Breath sounds are equal bilaterally. No adventitious lung sounds including wheezes rhonchi or crackles. Abdomen soft bowel sounds are heard. No masses or tenderness. Extremities are intact. No cyanosis clubbing or edema. Skin is without rash or lesion. Neurologic examination is brief but nonfocal. Results - Laboratory Findings CBC and BMP: 01/14/21 08:07 01/14/21 08:07 PT/INR, D-dimer PT 9.9 sec (9.0-12.0) 01/14/21 08:07 INR 0.9 (<1.2) 01/14/21 08:07 D-Dimer 0.44 mg/L FEU (<0.60) 01/14/21 08:07 Abnormal lab findings: Abnormal Labs 01/14/21 01/14/21 08:07 08:07 Chloride 111 H Glucose 114 H Triglycerides 369.0 H VLDL Cholesterol, Calc 73.80 H HDL Cholesterol 39.0 L - Diagnostic Findings Chest x-ray: image reviewed Assessment and Plan Assessment: Questionable hemoptysis, patient to have bronchoscopy and airway examination on 01/16/2021. History of hypertension. History of GI bleed. History of mild intermittent asthma. History of thyroid nodules, status post biopsy, which was negative. History of Crohn's disease. Benign lesion on base of tongue. Plan: Plan dated 01/15/2021. The patient will get a consent on the chart for bronchoscopy and airway examination. The patient will be nothing by mouth after midnight. Bronchoscopy will be performed tomorrow to see any source of bleeding in the lower respiratory tract. The patient had a CAT scan which is essentially negative other than for a couple of diminutive pulmonary nodules. This be followed but surveillance CT scanning. Additional recommendations and suggestions will be following. Time with Patient: Greater than 30
[2021-01-15 11:55] LABS: Glucose,Whole Blood 102 mg/dL (75-99)
--- NOTE | 2021-01-15 14:47 | P.HPIM ---
History of Present Illness H&P Date: 01/15/21 HISTORY OF PRESENT ILLNESS This is a 55-year-old male patient of Dr. Reid with past medical history of hypertension, hypothyroidism, generalized anxiety disorder, benign mass on the tongue, probable obstructive sleep apnea undergoing testing. Patient denies any history of coronary artery disease. Patient states that 4-5 days ago he felt that his throat was stuck together and dry. He had antibiotics at home which she keeps on hand at all times and started taking it. Because the symptoms he started having increased anxiety and couldn't sleep. He then noticed that his blood pressure was going up and subsequently for the past 3 days his had chest pain heaviness on the left side. He took half a Xanax at home which took the edge off but he still had some left chest heaviness. He came into [facility] emergency center for evaluation. EKG was sinus rhythm with no acute ST changes. Chest x-ray was negative for acute cardiopulmonary process. CBC was within normal limits. Electrolytes unremarkable. Creatinine 0.81. Blood sugar 114. Troponins negative on 3 draws. Liver function tests were normal. Magnesium 1.7. Triglycerides 369, cholesterol 164, LDL 51, HDL 39, lipase 84. Group A strep rapid screen was negative. CAT scan of the brain showed no acute intracranial hemorrhage or midline shift. Chronic right maxillary sinus disease. Patient was placed on the observation unit and cardiology consult was obtained for chest pain and uncontrolled hypertension. Lisinopril was increased and Dyazide added, Lopressor decreased to 25 mg twice daily. Echocardiogram reveals EF of 60-65% with mild concentric left ventricular hypertrophy, mild mitral regurgitation, mild tricuspid regurgitation. Patient has been cleared for cardiology and follow-up with Dr. Childress in 2-3 weeks. Consult was added for Dr. Flores regarding hemoptysis and patient is scheduled for bronchoscopy tomorrow. Patient has been seen by Dr. Ko in the past for sleep study which was apparently to be done at home. Patient does not know results of sleep study. REVIEW OF SYSTEMS Constitutional: No fever, no chills, no night sweats. No weight change. No weakness, fatigue or lethargy. No daytime sleepiness. EENT: No headache. No blurred vision or double vision, no loss of vision. No loss of Hearing, no ringing in the ears, no dizziness. No nasal drainage or congestion. No epistaxis. Reports sore throat. Lungs: No shortness of breath, cough, no sputum production. No wheezing. Cardiovascular: No chest pain, no lower extremity edema. No palpitations. No paroxysmal nocturnal dyspnea. No orthopnea. No lightheadedness or dizziness. No syncopal episodes. Abdominal: No abdominal pain. No nausea, vomiting. No diarrhea. No constipation. No bloody or tarry stools. No loss of appetite. Genitourinary: No dysuria, increased frequency, urgency. No urinary retention. Musculoskeletal: No myalgias. No muscle weakness, no gait dysfunction, no frequent falls. No back pain. No neck pain. Integumentary: No wounds, no lesions. No rash or pruritus. No unusual bruising. No change in hair or nails. Neurologic: No aphasia. No facial droop. No change in mentation. No head injury. No headache. No paralysis. No paresthesia. Psychiatric: No depression. Reports anxiety. No mood swings. Endocrine: No abnormal blood sugars. No weight change. No excessive sweating or thirst. No cold intolerance. SOCIAL HISTORY Patient is a lifelong nonsmoker. 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 He denies any illicit drug use or marijuana use. He is and lives at home with his . FAMILY HISTORY Mother is alive in her 70s with history of coronary artery disease. Father at age 72 from COPD. Patient has 1 brother and 1 sister with no major medical problems. Patient has 2 children ages 20 and 26 with no major medical problems. PHYSICAL EXAMINATION Gen: This is a 55-year-old male. He is resting in bed and appears to be comfortable and in no acute distress. HEENT: Head is atraumatic, normocephalic. Pupils equal, round. Sclerae is anicteric. NECK: Supple. No JVD. No lymphadenopathy. No thyromegaly. LUNGS: Clear to auscultation. No wheezes or rhonchi. No intercostal retractions. HEART: Regular rate and rhythm. No murmur. ABDOMEN: Soft. Bowel sounds are present. No masses. No tenderness. EXTREMITIES: No pedal edema. No calf tenderness. Dorsalis pedis +2 bilaterally. NEUROLOGICAL: Patient is awake, alert and oriented x3. Cranial nerves 2 through 12 are grossly intact. ASSESSMENT AND PLAN 1. Chest pain, acute coronary syndrome ruled out. Cardiology consult appreciated. Echocardiogram as above. Plan for follow-up with cardiology in the office in 2-3 weeks. Continue Lipitor 20 mg at bedtime 2. Uncontrolled hypertension. Lisinopril 10 mg twice daily, Lopressor 25 mg twice daily 3. Hemoptysis. Consult with Dr. Flores. Patient is scheduled for bronchoscopy for tomorrow. 4. Generalized anxiety disorder. Continue Xanax 1 mg 3 times daily as needed. 5. History of GI bleed, followed with Dr. Alatorre for EGD and colonoscopy. 6. Mild intermittent asthma, stable without exacerbation 7. History of thyroid nodule status post biopsy, follows with Dr. Tristan. 8. History of Crohn's disease, stable 9. Benign mass on the base of his tongue, stable. Patient placed as observation status. DISCHARGE PLAN Home on Thursday. Impression and plan of care have been directed as dictated by the signing physician. Zenaida Mandujano nurse practitioner acting as scribe for signing physician. Past Medical History Past Medical History: Asthma, GI Bleed, Hypertension, Thyroid Disorder Additional Past Medical History / Comment(s): PATIENT STATES HE HAS HAD HEM OPTYSIS FOR ABOUT A YEAR (EGD, COLONOSCOPY HAVE BEEN NEGATIVE FOR BLEEDING). CROHN'S. MASS ON BASE OF TONGUE, BENIGN, NOT REMOVED. Thyroid nodule right side. History of Any Multi-Drug Resistant Organisms: None Reported Past Surgical History: Bowel Resection, Cholecystectomy, Orthopedic Surgery, Tonsillectomy Additional Past Surgical History / Comment(s): BOWEL RESECTION W/COLOSTOMY AND LATER REVERSAL R/T CROHN'S . VASECTOMY. lt leg with steel plate (STRAIGHTEN LEG. LONG STORY). Past Anesthesia/Blood Transfusion Reactions: Previous Problems w/ Anesthesia Additional Past Anesthesia/Blood Transfusion Reaction / Comment(s): difficult intubation d/t small airway -has letter pt states indicates to use size 4 glidoscope Past Psychological History: Anxiety Additional Psychological History / Comment(s): VERY ANXIOUS AND FRUSTRATED THAT NO CAUSE FOUND FOR HEMOPTYSIS. Smoking Status: Never smoker Past Alcohol Use History: None Reported Past Drug Use History: None Reported - Past Family History Mother Family Medical History: No Reported History Medications and Allergies Home Medications Medication Instructions Recorded Confirmed Type ALPRAZolam [Xanax] 0.5 - 1 mg PO TID PRN 11/24/19 01/14/21 History Acetaminophen Tab [Tylenol] 325 mg PO Q4H PRN 01/14/21 01/14/21 History Doxycycline Hyclate 100 mg PO BID 01/14/21 01/14/21 History Atorvastatin [Lipitor] 20 mg PO HS #90 tab 01/15/21 Rx Metoprolol Tartrate [Lopressor] 25 mg PO BID tab 01/15/21 Rx Triamterene-Hctz 37.5-25Mg 1 each PO DAILY #90 cap 01/15/21 Rx [Dyazide 37.5-25 Capsule] lisinopriL [Zestril] 10 mg PO BID tab 01/15/21 Rx Allergies Allergy/AdvReac Type Severity Reaction Status Date / Time Penicillins Allergy Rash/Hives Verified 01/14/21 08:58 Physical Exam Vitals: Vital Signs Temp Pulse Pulse Resp BP BP Pulse Ox 01/15/21 02:00 97.7 F 62 20 123/76 98 01/14/21 20:00 97.5 F L 76 20 134/84 97 01/14/21 15:32 98.5 F 78 16 162/100 96 01/14/21 14:48 98 F 74 16 184/100 97 01/14/21 14:06 168/97 01/14/21 13:50 172/100 01/14/21 13:30 97.8 F 79 18 203/126 98 01/14/21 11:52 73 18 156/92 97 01/14/21 10:00 66 18 161/97 95 01/14/21 09:32 67 18 160/104 96 01/14/21 08:23 72 18 186/113 97 Intake and Output 01/14/21 01/15/21 01/15/21 22:59 06:59 14:59 Other: Voiding Method Toilet # Voids 1 1 Weight 127.006 kg Results CBC & Chem 7: 01/14/21 08:07 01/14/21 08:07 Labs: Abnormal Lab Results - Last 24 Hours (Table) 01/14/21 01/14/21 Range/Units 08:07 08:07 Chloride 111 H (98-107) mmol/L Glucose 114 H (74-99) mg/dL Triglycerides 369.0 H (0.0-149.0) mg/dL VLDL Cholesterol, Calc 73.80 H (5.00-40.00) mg/dL HDL Cholesterol 39.0 L (40.0-60.0) mg/dL Microbiology - Last 24 Hours (Table) 01/14/21 08:07 Group A Strep Throat Culture - Preliminary Throat Thrombosis Risk Factor Assmnt - Choose All That Apply Each Factor Represents 1 point: Age 41-60 years, Obesity (BMI >25) Other Risk Factors: No Thrombosis Risk Factor Assessment Total Risk Factor Score: 2 Thrombosis Risk Factor Assessment Level: Low Risk
[2021-01-15] MEDS: ALPRAZolam 1 MG TAB PO PRN (20:03)
[2021-01-15] MEDS: ATORVASTATIN 20 MG TAB PO SCH (20:05)
[2021-01-16] MEDS: METOPROLOL TARTRATE 25 MG TAB PO SCH (07:22)
[2021-01-16] MEDS: DOXYCYCLINE 100 MG CAP PO SCH (07:22)
[2021-01-16] MEDS: lisinopriL 10 MG TAB PO SCH (07:22)
[2021-01-16] MEDS: TRIAMTERENE-HCTZ 37.5-25MG 1 EACH CAP PO SCH (07:23)
[2021-01-16] MEDS ORDERED: lisinopriL 10 MG TAB PO STA (08:08)
[2021-01-16 09:08] VITALS: RESP 16
--- NOTE | 2021-01-16 10:08 | P.DS ---
Providers Date of admission: 01/14/21 12:34 Expected date of discharge: 01/16/21 Attending physician: Venkata Luo Consults: 01/14/21 12:34 Consult Physician Urgent Consulting Provider: Mike Roque Consult Reason/Comments: Chest pain Do you want consulting provider notified?: Yes 01/15/21 10:00 Consult Physician Routine Consulting Provider: Kayla Ko Consult Reason/Comments: hemoptysis Do you want consulting provider notified?: Yes [facility]: HISTORY OF PRESENT ILLNESS This is a 55-year-old male patient of Dr. Reid with past medical history of hypertension, hypothyroidism, generalized anxiety disorder, benign mass on the tongue, probable obstructive sleep apnea undergoing testing. Patient denies any history of coronary artery disease. Patient states that 4-5 days ago he felt that his throat was stuck together and dry. He had antibiotics at home which she keeps on hand at all times and started taking it. Because the symptoms he started having increased anxiety and couldn't sleep. He then noticed that his blood pressure was going up and subsequently for the past 3 days his had chest pain heaviness on the left side. He took half a Xanax at home which took the edge off but he still had some left chest heaviness. He came into [facility] emergency center for evaluation. EKG was sinus rhythm with no acute ST changes. Chest x-ray was negative for acute cardiopulmonary process. CBC was within normal limits. Electrolytes unremarkable. Creatinine 0.81. Blood sugar 114. Troponins negative on 3 draws. Liver function tests were normal. Magnesium 1.7. Triglycerides 369, cholesterol 164, LDL 51, HDL 39, lipase 84. Group A strep rapid screen was negative. CAT scan of the brain showed no acute intracranial hemorrhage or midline shift. Chronic right maxillary sinus disease. Patient was placed on the observation unit and cardiology consult was obtained for chest pain and uncontrolled hypertension. Lisinopril was increased and Dyazide added, Lopressor decreased to 25 mg twice daily. Echocardiogram reveals EF of 60-65% with mild concentric left ventricular hypertrophy, mild mitral regurgitation, mild tricuspid regurgitation. Patient has been cleared for cardiology and follow-up with Dr. Childress in 2-3 weeks. Consult was added for Dr. Flores regarding hemoptysis and patient is scheduled for bronchoscopy tomorrow. Patient has been seen by Dr. Ko in the past for sleep study which was apparently to be done at home. Patient does not know results of sleep study. 01/16: Patient denies any complaints today. He is scheduled for bronchoscopy today with Dr. Rowley. Plan is for discharge home following this procedure.he has been afebrile, heart rate in the 80s, blood pressure 105/70, pulse ox 92% on room air. Patient has been instructed to follow up with ENT for nodules as well as pulmonary medicine for sleep study and bronchoscopy results. Patient will be discharged today in stable condition. ASSESSMENT AND PLAN 1. Chest pain, acute coronary syndrome ruled out. 2. Uncontrolled hypertension. 3. Hemoptysis. 4. Generalized anxiety disorder. 5. History of GI bleed with Dr. Alatorre for EGD and colonoscopy. 6. Mild intermittent asthma, stable without exacerbation 7. History of thyroid nodule status post biopsy, follows with Dr. Tristan. 8. History of Crohn's disease, stable 9. Benign mass on the base of his tongue, stable. 10. Obstructive sleep apnea suspected. Follow up OP with Dr. Ko DISCHARGE PLAN Home Impression and plan of care have been directed as dictated by the signing physician. Zenaida Mandujano nurse practitioner acting as scribe for signing physician. Patient Condition at Discharge: Stable Plan - Discharge Summary New Discharge Prescriptions: New lisinopriL [Zestril] 20 mg PO BID #180 tab Triamterene-Hctz 37.5-25Mg [Dyazide 37.5-25 Capsule] 1 each PO DAILY #90 cap Atorvastatin [Lipitor] 20 mg PO HS #90 tab Continue ALPRAZolam [Xanax] 0.5 - 1 mg PO TID PRN PRN Reason: Anxiety Acetaminophen Tab [Tylenol] 325 mg PO Q4H PRN PRN Reason: Pain Discontinued Metoprolol Tartrate [Lopressor] 50 mg PO BID lisinopriL [Zestril] 10 mg PO DAILY Doxycycline Hyclate 100 mg PO BID Discharge Medication List ALPRAZolam [Xanax] 0.5 - 1 mg PO TID PRN 11/24/19 [History] Acetaminophen Tab [Tylenol] 325 mg PO Q4H PRN 01/14/21 [History] Atorvastatin [Lipitor] 20 mg PO HS #90 tab 01/15/21 [Rx] Triamterene-Hctz 37.5-25Mg [Dyazide 37.5-25 Capsule] 1 each PO DAILY #90 cap 01/15/21 [Rx] lisinopriL [Zestril] 20 mg PO BID #180 tab 01/16/21 [Rx] Follow up Appointment(s)/Referral(s): Raul Childress MD [STAFF PHYSICIAN] - 3 Weeks Lisandra Gillette NPC [Nurse Practitioner] - 1 Week Mario Hansen MD [STAFF PHYSICIAN] - 2 Weeks Jeanmarie Reid DO [Primary Care Provider] - 1 Week Patient Instructions/Handouts: Hypertension (DC) Discharge Disposition: HOME SELF-CARE
--- NOTE | 2021-01-16 10:33 | P.PN ---
Subjective HISTORY OF PRESENTING ILLNESS This is a pleasant 55-year-old male past medical history significant for hypertension, anxiety, hypothyroidism and benign nodule on the tongue. He denies prior history of coronary artery disease and does not follow in the office with a securities teller. We have been asked to see in consultation for chest pain. He describes the chest heaviness in the left precordial region that has been intermittent and ongoing for the previous one week peripheral by stress. He has some associated heart racing and dizziness. Is also having some trouble swallowing and pain which she describes as chronic but worsening recently. He denies associated shortness of breath, nausea, vomiting or diaphoresis. 01/16/2021 Pt seen and examined sitting up in bed in no acute distress. He is schedule to undergo bronchoscopy today for visualization exam. He denies chest pain or shortness of breath. Blood pressure 138/80 heart rate 70 afebrile maintaining oxygen saturation on room air. DIAGNOSTICS EKG reveals it is mechanism with no acute ST or T wave abnormalities noted. Chest xray negative for an acute cardiopulmonary process. Laboratory reviewed, CBC unremarkable, d-dimer 0.44, sodium 144, potassium 3.8, creatinine 0.81, cardiac enzymes negative 1. Current cardiac medications include Lopressor 50 mg twice a day and lisinopril 10 mg daily. 01/15/2021 Pt seen and examined sitting up in bed in no acute distress. He had another episodes this morning of what he describes as anxiety with chest pain and shortness of breath. Repeat EKG unremarkable. Blood pressure 162/94 heart rate 72 afebrile and maintaining oxygen saturation on room air. Laboratory data reviewed, cardiac enzymes negative 3, LDL 51, HDL 39 and total cholesterol 164. PHYSICAL EXAMINATION CONSTITUTIONAL: No apparent distress. HEENT: Head is normocephalic. Pupils are equal, round. Sclerae anicteric. Mucous membranes of the mouth are moist. No JVD. No carotid bruit. CHEST EXAMINATION: Lungs are clear to auscultation. No chest wall tenderness is noted on palpation or with deep breathing. HEART EXAMINATION: Regular rate and rhythm. S1, S2 heard. No murmurs, gallops or rub. EXTREMITIES: 2+ peripheral pulses, no lower extremity edema and no calf tenderness. ASSESSMENT Chest pain, atypical Hypertension, uncontrolled Anxiety Obesity, BMI 38 PLAN Increase lisinopril to 20 mg twice a day. Discontinue Lopressor. He can be discharged home from a cardiac perspective. Follow up with Dr. Childress in 2-3 weeks. Nurse Practitioner note has been reviewed, I agree with a documented findings and plan of care. Patient was seen and examined. Objective - Vital Signs Vital signs: Vital Signs Temp 97.8 F 01/16/21 07:00 Pulse 70 01/16/21 07:00 Resp 16 01/16/21 07:00 BP 138/80 01/16/21 07:00 Pulse Ox 94 L 01/16/21 07:00 Intake & Output 01/15/21 01/16/21 01/16/21 18:59 06:59 18:59 Intake Total 360 Balance 360 Intake: Oral 360 Other: Voiding Method Toilet Toilet Toilet # Voids 2 3 - Labs CBC & Chem 7: 01/14/21 08:07 01/14/21 08:07 Labs: Abnormal Lab Results - Last 24 Hours (Table) 01/15/21 Range/Units 11:44 POC Glucose (mg/dL) 102 H (75-99) mg/dL Microbiology - Last 24 Hours (Table) 01/14/21 08:07 Group A Strep Throat Culture - Final Throat
[2021-01-16] MEDS ORDERED: MIDAZOLAM 2 MG/2 ML VIAL ONE (12:39)
[2021-01-16] MEDS ORDERED: PROPOFOL 10 MG/ML 20 ML VIAL IV ONE (12:39)
[2021-01-16] MEDS ORDERED: LACTATED RINGERS 1,000 ML IV ONE ×2 (12:47)
[2021-01-16] MEDS ORDERED: LIDOCAINE 2% INJ 20 MG/ML INTRATRACH ONE (12:55)
[2021-01-16 14:36] VITALS: TEMP 97.7
[2021-01-16 14:39] VITALS: BP 111/73; PULSE 87
[2021-01-16] MEDS ORDERED: lisinopriL 20 MG TAB PO SCH (21:00)
--- NOTE | 2021-01-17 02:08 | PCN ---
PROCEDURE NOTE PROCEDURE PERFORMED: Bronchoscopy, airway examination, therapeutic lavage. PREOP DIAGNOSIS: Hemoptysis. POSTOP DIAGNOSIS: Normal airway examination. OPERATORS: Dr. Flores, Dr. Gillette. There was informed consent and universal timeout. The patient's procedure took place in room #1. ANESTHESIA: Anesthesia provided general anesthesia. DESCRIPTION OF PROCEDURE: After the patient was adequately sedated, the bronchoscope was inserted through the right nostril. It passed through the right nasopharynx into the oropharynx. The hypopharynx was identified and topicalized. The hypopharyngeal structures, including anterior commissure, true cords, false cords, arytenoids, piriform sinuses, right and left valleculae and epiglottis all appeared normal. After topicalization, the bronchoscope was pushed through the glottic opening into the trachea. The trachea was normal. Tracheal roger was sharp. We did a thorough evaluation of the right upper lobe and its 3 segments, right middle lobe and its 2 segments, right lower lobe and its 5 segments, left upper lobe proper and its 2 segments, the lingula and its 2 segments and left lower lobe and its 4 segments. Everything appeared completely normal. There was no bleeding. There was no dominant mass or tumor. There was no bronchitis. The mucosa was normal. The patient tolerated the procedure well. The bronchoscope was withdrawn. MMODL / IJN: [id number] /
== END 2021-01-16 17:00 | disposition home or self-care (01) ==
LOC: EC 07:16 → 6NMEDSUR 12:34
PROVIDERS: ADMIT Internal Medicine Geriatric Medicine; ATTEND Internal Medicine Geriatric Medicine
CPT/HCPCS: 96374; 99285; 36415; 94760; 93005; 93306; 85379; 80061; 80053; 82550; 83690; 83735; 84484; 85025; 85610; 85730; 87081; 87430; 71046; 70450; 31624; G0378 ×3; J2001; J2250; J1885; J2704

== ENCOUNTER → 2021-12-07 | Outpatient (CLI) | payer MEDICARE, OTHER ==
[2021-12-07 17:08] LABS: Basophils # (A) 0.09 X 10*3/uL (0.00-0.10); Basophils % (A) 1.1 %; Eosinophils % (A) 2.3 %; HCT 40.5 % (39.6-50.0); HGB 13.3 g/dL (13.0-17.0); Immature Grans, Automated 0.6 %; Lymphocytes # (A) 1.93 X 10*3/uL (0.90-5.00); Lymphocytes % (A) 22.7 %; MCH 30.9 pg (27.0-32.0); MCHC 32.8 g/dL (32.0-37.0); MCV 94.2 fL (80.0-97.0); Mean Platelet Volume 10.2 fL (9.5-12.2); Monocytes # (A) 0.47 X 10*3/uL (0.20-1.00); Monocytes % (A) 5.5 %; NRBC Per 100 WBC 0 /100 WBCS (0.0-0.0); Neutrophils # (A) 5.78 X 10*3/uL (1.80-7.70); Neutrophils % (A) 67.8 %; Platelet Count 236 X 10*3/uL (140-440); WBC 8.52 X 10*3/uL (4.50-10.00)
[2021-12-07 17:16] LABS: Erythrocyte Sedimentation Rate 13 mm/Hr (0-20)
[2021-12-07 17:26] LABS: ALT 37 U/L (10-49); AST 19 U/L (14-35); African American GFR (CKD) 98.5 (60.0-200.0); Albumin 4.6 g/dL (3.8-4.9); Albumin/Globulin Ratio 1.92 (1.60-3.17); Alkaline Phosphatase 52 U/L (41-126); Blood Urea Nitrogen 12.6 mg/dL (9.0-27.0); C Reactive Protein <0.30 mg/dL (0.00-0.80); Calcium 10.1 mg/dL (8.7-10.3); Carbon Dioxide 24.2 mmol/L (20.0-27.5); Chloride 108 mmol/L (96-109); Globulin 2.4 g/dL (1.6-3.3); Glucose 104 mg/dL (70-110); Non-African American GFR(CKD) 84.9 (60.0-200.0); Rheumatoid Factor, Qnt <10 IU/mL (0-15); Sodium 144 mmol/L (135-145)
[2021-12-09 11:17] LABS: HLA B27 NEGATIVE
[2021-12-09 13:30] LABS: Angiotensin-1 Converting Enz. 4 U/L (8-52)
[2021-12-09 16:02] LABS: C-ANCA <1:20 Titer (<1:20)
[2021-12-09 17:50] LABS: DNA Double-Stranded NEGATIVE (NEGATIVE)
== END | disposition home or self-care (01) ==
LOC: LABWHC1 10:32
PROVIDERS: ATTEND Family Medicine
DX: I10 Essential (primary) hypertension (principal); R21 Rash and other nonspecific skin eruption; K52.9 Noninfective gastroenteritis and colitis, unspecified; D72.829 Elevated white blood cell count, unspecified
CPT/HCPCS: 36415; 80053; 82164; 84439; 84443; 85025; 85652; 86038; 86140; 86225; 86255; 86431; 86812

== ENCOUNTER → 2021-12-25 | Outpatient (CLI) | payer MEDICARE, OTHER ==
--- NOTE | 2021-12-25 11:53 | XR ---
EXAMINATION TYPE: XR abdomen 2V DATE OF EXAM: 12/25/2021 COMPARISON: 11/24/2019 INDICATION: Partial small bowel obstruction TECHNIQUE: Abdomen is examined in the supine and upright views. FINDINGS: There is minimal colonic bowel gas. Some air-fluid levels may be in the ascending colon region. No adams spicious dilated small bowel loops or differential air-fluid levels to suggest obstruction are eviden t on the current exam. No free air is present. Psoas margins are normal. No organomegaly is present. Cholecystectomy clips are present. IMPRESSION: 1. Nonspecific abdomen. A few air-fluid levels may be within the ascending colon region. Consider gas troenteritis. Changes to suggest acute obstruction are not evident.
== END | disposition home or self-care (01) ==
LOC: RADXRMAIN 10:51
PROVIDERS: ATTEND Family Medicine
DX: K56.600 Partial intestinal obstruction, unspecified as to cause (principal)
CPT/HCPCS: 74019

== ENCOUNTER → 2022-03-04 | Outpatient (CLI) | payer MEDICARE, OTHER ==
[2022-03-04 14:27] LABS: Basophils # (A) 0.09 X 10*3/uL (0.00-0.10); Basophils % (A) 1.2 %; Eosinophils # (A) 0.23 X 10*3/uL (0.04-0.35); Eosinophils % (A) 3.2 %; HGB 13.2 g/dL (13.0-17.0); Lymphocytes # (A) 1.62 X 10*3/uL (0.90-5.00); Lymphocytes % (A) 22.2 %; MCH 31.4 pg (27.0-32.0); MCHC 33.8 g/dL (32.0-37.0); MCV 92.6 fL (80.0-97.0); Monocytes # (A) 0.42 X 10*3/uL (0.20-1.00); Monocytes % (A) 5.8 %; NRBC Per 100 WBC 0 /100 WBCS (0.0-0.0); Neutrophils # (A) 4.87 X 10*3/uL (1.80-7.70); Neutrophils % (A) 66.6 %; Platelet Count 236 X 10*3/uL (140-440); RBC 4.21 X 10*6/uL (4.40-5.60); RDW 13.3 % (11.5-14.5)
[2022-03-04 14:33] LABS: Appearance,Urine Clear (Clear); Bilirubin,Urine Negative (Negative); Blood,Urine Negative (Negative); Color,Urine Yellow (Yellow); Ketones,Urine Trace mg/dL (Negative); Nitrite,Urine Negative (Negative); Specific Gravity,Urine 1.018 (1.001-1.030); Urobilinogen,Urine 0.2 (0.2,1.0)
[2022-03-04 14:47] LABS: African American GFR (CKD) 96.1 (60.0-200.0); Albumin 4.6 g/dL (3.8-4.9); Albumin/Globulin Ratio 1.54 (1.60-3.17); Anion Gap 13.1 mmol/L (10.00-18.00); BUN/Creat Ratio 11.08 Ratio (12.00-20.00); Blood Urea Nitrogen 11.3 mg/dL (9.0-27.0); Carbon Dioxide 19.7 mmol/L (20.0-27.5); Non-African American GFR(CKD) 82.9 (60.0-200.0); Potassium 4.2 mmol/L (3.5-5.5); T4, Free (Free Thyroxine) 1.16 ng/dL (0.800-1.800); Total Bilirubin 0.4 mg/dL (0.30-1.20); Total Protein 7.5 g/dL (6.2-8.2)
== END | disposition home or self-care (01) ==
LOC: LABWHC1 08:58
PROVIDERS: ATTEND Dermatology
DX: D22.5 Melanocytic nevi of trunk (principal); D48.5 Neoplasm of uncertain behavior of skin; D22.72 Melanocytic nevi of left lower limb, including hip; L82.1 Other seborrheic keratosis; L21.8 Other seborrheic dermatitis; L57.8 Other skin changes due to chronic exposure to nonionizing radiation; L29.8 Other pruritus
CPT/HCPCS: 36415; 80053; 81003; 84439; 84443; 85025

== ENCOUNTER → 2022-03-07 | Outpatient (CLI) | payer MEDICARE, OTHER ==
[2022-03-07 16:55] LABS: Hepatitis B Surface Antigen Nonreactive (Nonreactive); Hepatitis C IgG Antibody Nonreactive (Nonreactive)
== END | disposition home or self-care (01) ==
LOC: LABWHC1 08:03
PROVIDERS: ATTEND Internal Medicine Gastroenterology
DX: K50.90 Crohn's disease, unspecified, without complications (principal)
CPT/HCPCS: 36415; 85652; 86140; 86480; 86704; 86803; 87340

== ENCOUNTER → 2022-03-12 | Outpatient (CLI) | payer MEDICARE, OTHER ==
--- NOTE | 2022-03-12 10:21 | XR ---
EXAMINATION TYPE: XR chest 2V DATE OF EXAM: 03/12/2022 COMPARISON: 01/14/2021 INDICATION: Possible TB, history of Crohn's disease TECHNIQUE: Frontal and lateral views of the chest are obtained. FINDINGS: The heart size is normal. The pulmonary vasculature is normal. The lungs are clear. No significant interval change IMPRESSION: 1. No suspicious acute pulmonary process.
== END | disposition home or self-care (01) ==
LOC: RADXRMAIN 09:34
PROVIDERS: ATTEND Internal Medicine Infectious Disease
DX: Z11.1 Encounter for screening for respiratory tuberculosis (principal)
CPT/HCPCS: 71046

== ENCOUNTER → 2022-04-25 | Outpatient (CLI) | payer MEDICARE, OTHER ==
[2022-04-25 14:30] LABS: ALT 27 U/L (10-49); AST 17 U/L (14-35); Albumin 4.7 g/dL (3.8-4.9); Albumin/Globulin Ratio 1.98 (1.60-3.17); Alkaline Phosphatase 55 U/L (41-126); Bilirubin, Conjugated <0.20 mg/dL (0.20-0.40); Globulin 2.4 g/dL (1.6-3.3)
== END | disposition home or self-care (01) ==
LOC: LABWHC1 09:46
PROVIDERS: ATTEND Internal Medicine Infectious Disease
DX: S30.860A Insect bite (nonvenomous) of lower back and pelvis, initial encounter (principal); X58.XXXA Exposure to other specified factors, initial encounter
CPT/HCPCS: 36415; 80076

== ENCOUNTER → 2022-05-23 | Outpatient (CLI) | payer MEDICARE, OTHER ==
[2022-05-23 15:56] LABS: ALT 20 U/L (10-49); AST 17 U/L (14-35); Albumin 4.3 g/dL (3.8-4.9); Albumin/Globulin Ratio 1.79 (1.60-3.17); Alkaline Phosphatase 49 U/L (41-126); Bilirubin, Conjugated <0.20 mg/dL (0.20-0.40); Globulin 2.4 g/dL (1.6-3.3); Total Bilirubin <0.15 mg/dL (0.30-1.20); Total Protein 6.7 g/dL (6.2-8.2)
== END | disposition home or self-care (01) ==
LOC: LABWHC1 09:30
PROVIDERS: ATTEND Internal Medicine Infectious Disease
DX: Z22.7 Latent tuberculosis (principal)
CPT/HCPCS: 36415; 80076

== ENCOUNTER → 2022-06-20 | Outpatient (CLI) | payer MEDICARE, OTHER ==
[2022-06-20 18:29] LABS: Albumin 4.6 g/dL (3.8-4.9); Albumin/Globulin Ratio 1.79 (1.60-3.17); Bilirubin, Conjugated 0.24 mg/dL (0.20-0.40); Bilirubin,Unconjugated 0.27 mg/dL (0.20-1.00); Globulin 2.6 g/dL (1.6-3.3); Total Bilirubin 0.5 mg/dL (0.30-1.20); Total Protein 7.2 g/dL (6.2-8.2)
== END | disposition home or self-care (01) ==
LOC: LABWHC1 10:47
PROVIDERS: ATTEND Internal Medicine Infectious Disease
DX: Z22.7 Latent tuberculosis (principal)
CPT/HCPCS: 36415; 80076

== ENCOUNTER 2022-09-16 22:18 | Inpatient (IN) | payer MEDICARE, OTHER ==
[2022-09-16] MEDS ORDERED: SODIUM CHLORIDE 0.9% 1,000 ML IV STA (22:36)
--- NOTE | 2022-09-16 22:44 | ED ---
General Adult HPI - General Chief complaint: Abdominal Pain Stated complaint: Abdominal Pain, Vomiting Time Seen by Provider: 09/16/22 22:24 Source: patient Mode of arrival: ambulatory Limitations: no limitations - History of Present Illness Initial comments: Dictation was produced using [email or web address] dictation software. please excuse any grammatical, word or spelling errors. Chief Complaint: 57-year-old male past nuchal history of Crohn's disease presents to the year for right-sided abdominal pain History of Present Illness: 57-year-old male he has had Crohn's disease for several years. Last couple hours she's been having worsening right-sided abdominal pain. Patient believes that his symptoms are consistent with an obstruction secondary to Crohn's disease. He's had multiple abdominal surgeries for his Crohn's disease. Denies any fevers. He has had several bouts of nonbilious nonbloody emesis. Denies any diarrhea. States that he is not able to tolerate any oral intake The ROS documented in this emergency department record has been reviewed and confirmed by me. Those systems with pertinent positive or negative responses have been documented in the HPI. All other systems are other negative and/or noncontributory. - Related Data Home Medications Medication Instructions Recorded Confirmed ALPRAZolam [Xanax] 0.5 - 1 mg PO TID PRN 11/24/19 01/14/21 Acetaminophen Tab [Tylenol] 325 mg PO Q4H PRN 01/14/21 01/14/21 Previous Rx's Medication Instructions Recorded Atorvastatin [Lipitor] 20 mg PO HS #90 tab 01/15/21 Triamterene-Hctz 37.5-25Mg 1 each PO DAILY #90 cap 01/15/21 [Dyazide 37.5-25 Capsule] lisinopriL [Zestril] 20 mg PO BID #180 tab 01/16/21 Allergies Allergy/AdvReac Type Severity Reaction Status Date / Time Penicillins Allergy Rash/Hives Verified 09/16/22 22:23 Review of Systems ROS Statement: Those systems with pertinent positive or pertinent negative responses have been documented in the HPI. ROS Other: All systems not noted in ROS Statement are negative. Past Medical History Past Medical History: Asthma, GI Bleed, Hypertension, Thyroid Disorder Additional Past Medical History / Comment(s): PATIENT STATES HE HAS HAD HEMOPTYSIS FOR ABOUT A YEAR (EGD, COLONOSCOPY HAVE BEEN NEGATIVE FOR BLEEDING). CROHN'S. MASS ON BASE OF TONGUE, BENIGN, NOT REMOVED. Thyroid nodule right side. History of Any Multi-Drug Resistant Organisms: None Reported Past Surgical History: Bowel Resection, Cholecystectomy, Orthopedic Surgery, Tonsillectomy Additional Past Surgical History / Comment(s): BOWEL RESECTION W/COLOSTOMY AND LATER REVERSAL R/T CROHN'S . VASECTOMY. lt leg with steel plate (STRAIGHTEN LEG. LONG STORY). Past Anesthesia/Blood Transfusion Reactions: Previous Problems w/ Anesthesia Additional Past Anesthesia/Blood Transfusion Reaction / Comment(s): difficult intubation d/t small airway -has letter pt states indicates to use size 4 glidoscope Past Psychological History: Anxiety Smoking Status: Never smoker Past Alcohol Use History: None Reported Past Drug Use History: None Reported - Past Family History Mother Family Medical History: No Reported History General Exam - General Exam Comments Initial Comments: PHYSICAL EXAM: General Impression: Alert and oriented x3, not in acute distress HEENT: Normocephalic atraumatic, extra-ocular movements intact, pupils equal and reactive to light bilaterally, mucous membranes moist. Cardiovascular: Heart regular rate and rhythm Chest: Able to complete full sentences, no retractions, no tachypnea Abdomen: abdomen soft, tenderness to the right upper right lower, no hemotympanum, no high-pitched bowel sounds, non-distended, no organomegaly Musculoskeletal: Pulses present and equal in all extremities, no peripheral edema Motor: no focal deficits noted Neurological: CN II-XII grossly intact, no focal motor or sensory deficits noted Skin: Intact with no visualized rashes Psych: Normal affect and mood Limitations: no limitations Course Vital Signs 09/16/22 09/16/22 09/16/22 22:19 23:10 23:30 Temperature 98.1 F 97.8 F 98.0 F Pulse Rate 100 100 90 Respiratory 20 24 18 Rate Blood Pressure 154/99 175/12 144/83 O2 Sat by Pulse 96 98 97 Oximetry 09/16/22 23:46 Temperature Pulse Rate 87 Respiratory 19 Rate Blood Pressure 147/81 O2 Sat by Pulse 98 Oximetry - Reevaluation(s) Reevaluation #1: 09/16/22 23:[address] He had a contrast study performed. After CT began having some mild dyspnea and a streaking rash from the IV site. Patient states that he is tolerated contrast multiple times in the past. However given his clinical presentation to suspicion that he now has an ALLERGIC reaction to contrast. Patient given diphenhydramine, Solu-Medrol and Pepcid Medical Decision Making - Medical Decision Making Was pt. sent in by a medical professional or institution ([facility], [facility], urgent care, hospital, or penitentiary...) When possible be specific @ -No Did you speak to anyone other than the patient for history (EMS, parent, family, police, friend...)? What history was obtained from this source @ -No Did you review nursing and triage notes (agree or disagree)? Why? @ -I reviewed and agree with nursing and triage notes Were old charts reviewed (outside hosp., previous admission, EMS record, old EKG, old radiological studies, urgent care reports/EKG's, penitentiary records)? Report findings @ -Old surgical notes were reviewed showing patient has extensive history of abdominal surgery and chronic disease Differential Diagnosis (chest pain, altered mental status, abdominal pain women, abdominal pain men, vaginal bleeding, musculoskeletal, weakness, fever, dyspnea, syncope, headache, dizziness, GI bleed, back pain, seizure, CVA, palpatations, mental health)? @ -Differential Abdominal Pain Men: Appendicitis, cholecystitis, diverticulosis, ischemic bowel, pancreatitis, hepa titis, UTI, gastroenteritis, AAA, incarcerated hernia, bowel obstruction, constipation, inflammatory bowel, hepatitis, peptic ulcer disease, splenic infarction, perforated viscus, testicular torsion, this is not meant to be an all-inclusive list EKG interpreted by me (3pts min.). @ -None done X-rays interpreted by me (1pt min.). @ -None done CT interpreted by me (1pt min.). @ -Inflammatory findings at the small large bowel U/S interpreted by me (1pt. min.). @ -None done What testing was considered but not performed or refused? (CT, X-rays, U/S, labs)? Why? @ -None What meds were considered but not given or refused? Why? @ -None Did you discuss the management of the patient with other professionals (professionals i.e. [facility], [facility], lab, RT, psych nurse, social work msw, private duty nurse, teacher, customs officer, housing case manager)? Give summary @ -Case discussed with hospitalist for admission Was smoking cessation discussed for >3mins.? @ -No Was critical care preformed (if so, how long)? @ -No Were there social determinants of health that impacted care today? How? (Homelessness, low income, unemployed, alcoholism, drug addiction, transport ation, low edu. Level, literacy, decrease access to med. care, fpc, rehab)? @ -No Was there de-escalation of care discussed even if they declined (Discuss DNR or withdrawal of care, Hospice)? DNR status @ -No What co-morbidities impacted this encounter? (DM, HTN, Smoking, COPD, CAD, Cancer, CVA, ARF, Chemo, Hep., AIDS, mental health diagnosis, sleep apnea, morbid obesity)? @ -Crohn's disease, extensive history of abdominal surgery Was patient admitted / discharged? Hospital course, mention meds given and route, prescriptions, significant lab abnormalities, going to OR and other pertinent info. @ --57 year-old male presents to the emergency department with right-sided abdominal pain. Vital signs upon arrival are within acceptable limits. Laboratory evaluation obtained. Mild leukocytosis of 14.2, mild acidosis. Laboratory evaluation otherwise unremarkable. CT shows inflammatory findings however no obstruction. Patient reevaluated at bedside. Patient has intractable abdominal pain and intractable vomiting. Will be admitted for IV hydration and symptom control. Surgery be consulted. Undiagnosed new problem with uncertain prognosis? @ -No Drug Therapy requiring intensive monitoring for toxicity (Heparin, Nitro, Insulin, Cardizem)? @ -No Were any procedures done? @ -No Diagnosis/symptom? Acute, or Chronic, or Acute on Chronic? Uncomplicated (without systemic symptoms) or Complicated (systemic symptoms)? @ -1. Intractable abdominal pain and vomiting, 2. History of Crohn's disease Side effects of treatment? @ -No Exacerbation, Progression, or Severe Exacerbation? @ -Exacerbation Poses a threat to life or bodily function? How? (Chest pain, USA, PA, pneumonia, PE, COPD, DKA, ARF, appy, cholecystitis, CVA, Diverticulitis, Homicidal, Suicidal, threat to staff... and all critical care pts) @ -yes - Lab Data Result diagrams: 09/16/22 22:41 09/16/22 22:41 Lab Results 09/16/22 09/16/22 Range/Units 22:41 22:41 WBC 14.2 H (3.8-10.6) k/uL RBC 4.71 (4.30-5.90) m/uL Hgb 14.5 (13.0-17.5) gm/dL Hct 41.8 (39.0-53.0) % MCV 88.6 (80.0-100.0) fL MCH 30.9 (25.0-35.0) pg MCHC 34.8 (31.0-37.0) g/dL RDW 14.1 (11.5-15.5) % Plt Count 220 (150-450) k/uL MPV 7.6 Neutrophils % 87 % Lymphocytes % 8 % Monocytes % 3 % Eosinophils % 1 % Basophils % 1 % Neutrophils # 12.3 H (1.3-7.7) k/uL Lymphocytes # 1.1 (1.0-4.8) k/uL Monocytes # 0.4 (0-1.0) k/uL Eosinophils # 0.2 (0-0.7) k/uL Basophils # 0.1 (0-0.2) k/uL Sodium 141 (137-145) mmol/L Potassium 3.8 (3.5-5.1) mmol/L Chloride 108 H (98-107) mmol/L Carbon Dioxide 18 L (22-30) mmol/L Anion Gap 15 mmol/L BUN 13 (9-20) mg/dL Creatinine 0.89 (0.66-1.25) mg/dL Est GFR (CKD-EPI)AfAm >90 (>60 ml/min/1.73 sqM) Est GFR (CKD-EPI)NonAf >90 (>60 ml/min/1.73 sqM) Glucose 127 H (74-99) mg/dL Calcium 9.7 (8.4-10.2) mg/dL Total Bilirubin 0.9 (0.2-1.3) mg/dL AST 31 (17-59) U/L ALT 46 (4-49) U/L Alkaline Phosphatase 59 (38-126) U/L Total Protein 7.8 (6.3-8.2) g/dL Albumin 4.6 (3.5-5.0) g/dL Lipase 139 (23-300) U/L Disposition Clinical Impression: Abdominal pain Disposition: ADMITTED IP TO THIS [facility] Condition: Fair Referrals: Jeanmarie Reid DO [Primary Care Provider] - 1-2 days Decision Time: 00:22
[2022-09-16] MEDS ORDERED: MORPHINE SULFATE 4 MG/ML SYRINGE IV STA (22:47)
[2022-09-16] MEDS ORDERED: ONDANSETRON 4 MG/2 ML VIAL IVP STA (22:47)
[2022-09-16 22:52] LABS: Basophils # (A) 0.1 k/uL (0-0.2); Basophils % (A) 1 %; Eosinophils # (A) 0.2 k/uL (0-0.7); Eosinophils % (A) 1 %; HCT 41.8 % (39.0-53.0); HGB 14.5 gm/dL (13.0-17.5); Lymphocytes # (A) 1.1 k/uL (1.0-4.8); Lymphocytes % (A) 8 %; MCH 30.9 pg (25.0-35.0); MCHC 34.8 g/dL (31.0-37.0); MCV 88.6 fL (80.0-100.0); Mean Platelet Volume 7.6; Monocytes # (A) 0.4 k/uL (0-1.0); Monocytes % (A) 3 %; Neutrophils # (A) 12.3 k/uL (1.3-7.7); Neutrophils % (A) 87 %; Platelet Count 220 k/uL (150-450); RBC 4.71 m/uL (4.30-5.90); RDW 14.1 % (11.5-15.5); WBC 14.2 k/uL (3.8-10.6)
[2022-09-16 23:01] LABS: ALT 46 U/L (4-49); AST 31 U/L (17-59); African American GFR (CKD) >90 (>60 ml/min/1.73 sqM); Albumin 4.6 g/dL (3.5-5.0); Alkaline Phosphatase 59 U/L (38-126); Anion Gap 15 mmol/L; Blood Urea Nitrogen 13 mg/dL (9-20); Calcium 9.7 mg/dL (8.4-10.2); Carbon Dioxide 18 mmol/L (22-30); Chloride 108 mmol/L (98-107); Glucose 127 mg/dL (74-99); Lipase 139 U/L (23-300); Non-African American GFR(CKD) >90 (>60 ml/min/1.73 sqM); Potassium 3.8 mmol/L (3.5-5.1); Sodium 141 mmol/L (137-145); Total Bilirubin 0.9 mg/dL (0.2-1.3); Total Protein 7.8 g/dL (6.3-8.2)
[2022-09-16] MEDS ORDERED: FAMOTIDINE 20 MG/2 ML VIAL IV STA (23:17)
[2022-09-16] MEDS ORDERED: methylPREDNISolone SOD SUCCI 125 MG/2 ML VIAL IV STA (23:17)
[2022-09-16] MEDS ORDERED: diphenhydrAMINE 50 MG/ML 1 ML VIAL IVP STA (23:17)
--- NOTE | 2022-09-16 23:28 | CT ---
EXAM: CT Abdomen and Pelvis With Intravenous Contrast CLINICAL HISTORY: ITS.REASON CT Reason: abdominal pain, history of crohns TECHNIQUE: Axial computed tomography images of the abdomen and pelvis with intravenous contrast. CTDI is 48.2 mGy and DLP is 2517.4 mGy-cm. This CT exam was performed using one or more of the following dose reduction techniques: automated exposure control, adjustment of the mA and/or kV according to patient size, and/or use of iterative reconstruction technique. COMPARISON: 12/25/2021. 08/08/2017. FINDINGS: Lung bases: Subsegmental atelectasis noted at the lung bases. Pleural space: Unremarkable. No pneumothorax. No pleural effusions. Heart: Heart is normal in size. ABDOMEN: Liver: Diffuse fatty infiltration of the liver. The liver and the spleen enhance uniformly. Gallbladder and bile ducts: Status post cholecystectomy. No ductal dilation. Pancreas: See below. Spleen: See above. Adrenals: The adrenal glands, the head, body, tail of the pancreas are unremarkable. Kidneys and ureters: Unremarkable. No renal calculus or hydronephrosis. Stomach and bowel: Wall thickening of loops of small large bowel suggestive of enterocolitis. Inflammatory or infectious etiology should be considered. Moderate quantity of ingested material in the stomach. No bowel obstruction. PELVIS: Appendix: No findings to suggest acute appendicitis. Bladder: Bladder is underdistended. Reproductive: Unremarkable as visualized. ABDOMEN and PELVIS: Intraperitoneal space: Unremarkable. No free air. No significant fluid collection. Bones/joints: No acute fracture. No dislocation. No spondylolysis. Soft tissues: 2.5 cm left inguinal hernia containing only mesenteric fat. Vasculature: The portal vein is patent. Flow is noted within the celiac, SMA, the renal arteries, and ROULA. No abdominal aortic aneurysm. Lymph nodes: Unremarkable. No retroperitoneal lymphadenopathy. IMPRESSION: 1. Wall thickening of loops of small large bowel suggestive of inflammatory or infectious enterocolitis. Clinical correlation is advised. 2. Status post cholecystectomy. 3. No hydronephrosis.
[2022-09-17] MEDS ORDERED: ACETAMINOPHEN TAB 325 MG TAB PO PRN (00:16)
[2022-09-17] MEDS ORDERED: NALOXONE 0.4 MG/ML 1 ML VIAL IV PRN (00:16)
[2022-09-17] MEDS ORDERED: ONDANSETRON 4 MG/2 ML VIAL IVP PRN (00:16)
[2022-09-17] MEDS: SODIUM CHLORIDE 0.9% 1,000 ML IV SCH ×2 (00:29→08:52)
[2022-09-17] MEDS: MORPHINE SULFATE 4 MG/ML SYRINGE IV PRN ×4 (03:25→20:12)
[2022-09-17] MEDS: PANTOPRAZOLE 40 MG/10 ML VIAL IVP SCH (11:27)
--- NOTE | 2022-09-17 11:47 | P.GSCN ---
History of Present Illness Consult date: 09/17/22 History of present illness: CHIEF COMPLAINT: Abdominal pain HISTORY OF PRESENT ILLNESS: This is a 57-year-old male with a known history of Crohn's disease. He is required bowel resection with ostomy placement and then colostomy reversal for his Crohn's. Patient follows with Dr. Crump and specialist out of . Patient presents to the hospital with complaints of righ t-sided abdominal pain that started yesterday. He has been having abdominal spasms. He reports improvement in the pain after passing flatus. He has been having nausea and vomiting. Patient has had increased frequency and has loose stools. Reports that his stools are usually normal. He reports no blood in the stools. He denies any fever, chills or sweats. He thought that his pain may be due to a bowel obstruction like he's previously had from his Crohn's. Computed tomography scan was completed that shows wall thickening of loops of small and large bowel suggestive of inflammatory or infectious enterocolitis. Patient denies any sick contacts. Denies any recent traveling. Last colonoscopy and EGD were in May 2020 and revealed gastritis and colon polyp in the hepatic flexure and a rectal polyp status post polypectomy. PAST MEDICAL HISTORY: See below PAST SURGICAL HISTORY: See below MEDICATIONS: See below ALLERGIES: See below SOCIAL HISTORY: No illicit drug use. REVIEW OF SYSTEMS: CONSTITUTIONAL: Denies fever or chills. HEENT: Denies blurred vision, vision changes, or eye pain. Denies hemoptysis CARDIOVASCULAR: Denies chest pain or pressure. RESPIRATORY: No shortness of breath. GASTROINTESTINAL: See HPI for pertinent findings HEMATOLOGIC: Denies bleeding disorders. GENITOURINARY: Denies any blood in urine or increased urinary frequency. SKIN: Denies pruitis. Denies rash. PHYSICAL EXAM: VITAL SIGNS: Reviewed GENERAL: Well-developed in no acute distress. HEENT: No sclera icterus. Extraocular movements grossly intact. Moist buccal mucosa. Head is atraumatic, normocephalic. No nasal drainage. ABDOMEN: Soft. Nondistended. Tenderness with palpation right side of abdomen NEUROLOGIC: Alert and oriented. Cranial nerves II through XII grossly intact. LABORATORY DATA: WBC is 14.2 Hgb 14.5 platelets 220 Sodium 141 potassium 3.8 creatinine 0.89 LFTs normal lipase 139 IMAGING: Computed tomography scan was completed that shows wall thickening of loops of small and large bowel suggestive of inflammatory or infectious enterocolitis. Status post cholecystectomy. No hydronephrosis. ASSESSMENT: 1. Right-sided abdominal pain with nausea and vomiting 2. Wall thickening of loops of small and large bowel suggestive of inflammatory or infectious enterocolitis 3. History of Crohn's PLAN: -Further recommendations forthcoming per surgeon -Recommend starting antibiotics. Discussed with medicine service. They have consulted infectious disease. -Continue clear liquid diet -Continue IV fluids -Continue supportive care Thank you for this consultation Physician Manufacturing Engineer Assembly note has been reviewed by physician. Signing provider agrees with the documented findings, assessment, and plan of care. I have personally seen and examined the patient, reviewed the [employer] CONSULTANT /PAs history, exam and MDM and agree with the assessment and plan as written. Based on total visit time, I have performed more than 50% of the visit. As above: Patient with history of known Crohn's disease. Underwent previous resection with ostomy and subsequent ostomy reversal 20-30 years ago. Patient follows with GI as outpatient. He is not on any maintenance inflammatory bowel disease medications. Yesterday started having right lower abdominal pain. This was crampy in nature. This is associated with vomiting and diarrhea. CAT scan shows inflammation of the distal small bowel proximal to the suspected anastomosis to the ascending colon. He was given one dose of steroids. Agree with plans for IV antibiotics. Will start IV steroids. Unfortunately no GI here at this time. Recommend outpatient follow-up when improved. Apparently is already scheduled for colonoscopy 10/[address] Crump. Past Medical History Past Medical History: Asthma, GI Bleed, Hypertension, Thyroid Disorder Additional Past Medical History / Comment(s): PATIENT STATES HE HAS HAD HEMOPTYSIS FOR ABOUT A YEAR (EGD, COLONOSCOPY HAVE BEEN NEGATIVE FOR BLEEDING). CROHN'S. MASS ON BASE OF TONGUE, BENIGN, NOT REMOVED. Thyroid nodule right side. crohn's disease History of Any Multi-Drug Resistant Organisms: None Reported Past Surgical History: Bowel Resection, Cholecystectomy, Orthopedic Surgery, Tonsillectomy Additional Past Surgical History / Comment(s): BOWEL RESECTION W/COLOSTOMY AND LATER REVERSAL R/T CROHN'S . VASECTOMY. lt leg with steel plate (STRAIGHTEN LEG. LONG STORY). Past Anesthesia/Blood Transfusion Reactions: Previous Problems w/ Anesthesia Additional Past Anesthesia/Blood Transfusion Reaction / Comm: difficult intubation d/t small airway -has letter pt states indicates to use size 4 glidoscope Past Psychological History: Anxiety Additional Psychological History / Comment(s): VERY ANXIOUS AND FRUSTRATED THAT NO CAUSE FOUND FOR HEMOPTYSIS. Smoking Status: Never smoker Past Alcohol Use History: None Reported Past Drug Use History: None Reported - Past Family History Mother Family Medical History: No Reported History Medications and Allergies Home Medications Medication Instructions Recorded Confirmed Type lisinopriL [Zestril] 20 mg PO BID #180 tab 01/16/21 09/17/22 Rx Triamterene-Hctz 37.5-25Mg 0.5 tab PO DAILY 09/17/22 09/17/22 History [Maxzide 37.5-25] rifAMPin [Rifampin] 600 mg PO DAILY 09/17/22 09/17/22 History Allergies Allergy/AdvReac Type Severity Reaction Status Date / Time Iodinated Contrast Media Allergy Rash/Hives Verified 09/17/22 07:06 Penicillins Allergy Rash/Hives Verified 09/17/22 07:06 Surgical - Exam Vital Signs Temp Pulse Resp BP Pulse Ox 98.1 F 100 20 154/99 96 09/16/22 22:19 09/16/22 22:19 09/16/22 22:19 09/16/22 22:19 09/16/22 22:19 Results - Labs 09/16/22 22:41 09/16/22 22:41 Abnormal Lab Results - Last 24 Hours (Table) 09/16/22 09/16/22 Range/Units 22:41 22:41 WBC 14.2 H (3.8-10.6) k/uL Neutrophils # 12.3 H (1.3-7.7) k/uL Chloride 108 H (98-107) mmol/L Carbon Dioxide 18 L (22-30) mmol/L Glucose 127 H (74-99) mg/dL Diabetes panel 09/16/22 Range/Units 22:41 Sodium 141 (137-145) mmol/L Potassium 3.8 (3.5-5.1) mmol/L Chloride 108 H (98-107) mmol/L Carbon Dioxide 18 L (22-30) mmol/L BUN 13 (9-20) mg/dL Creatinine 0.89 (0.66-1.25) mg/dL Glucose 127 H (74-99) mg/dL Calcium 9.7 (8.4-10.2) mg/dL AST 31 (17-59) U/L ALT 46 (4-49) U/L Alkaline Phosphatase 59 (38-126) U/L Total Protein 7.8 (6.3-8.2) g/dL Albumin 4.6 (3.5-5.0) g/dL Calcium panel 09/16/22 Range/Units 22:41 Calcium 9.7 (8.4-10.2) mg/dL Albumin 4.6 (3.5-5.0) g/dL Pituitary panel 09/16/22 Range/Units 22:41 Sodium 141 (137-145) mmol/L Potassium 3.8 (3.5-5.1) mmol/L Chloride 108 H (98-107) mmol/L Carbon Dioxide 18 L (22-30) mmol/L BUN 13 (9-20) mg/dL Creatinine 0.89 (0.66-1.25) mg/dL Glucose 127 H (74-99) mg/dL Calcium 9.7 (8.4-10.2) mg/dL Adrenal panel 09/16/22 Range/Units 22:41 Sodium 141 (137-145) mmol/L Potassium 3.8 (3.5-5.1) mmol/L Chloride 108 H (98-107) mmol/L Carbon Dioxide 18 L (22-30) mmol/L BUN 13 (9-20) mg/dL Creatinine 0.89 (0.66-1.25) mg/dL Glucose 127 H (74-99) mg/dL Calcium 9.7 (8.4-10.2) mg/dL Total Bilirubin 0.9 (0.2-1.3) mg/dL AST 31 (17-59) U/L ALT 46 (4-49) U/L Alkaline Phosphatase 59 (38-126) U/L Total Protein 7.8 (6.3-8.2) g/dL Albumin 4.6 (3.5-5.0) g/dL
[2022-09-17] MEDS: lisinopriL 20 MG TAB PO SCH ×2 (12:37→20:12)
--- NOTE | 2022-09-17 14:31 | P.HPIM ---
History of Present Illness H&P Date: 09/17/22 This is a 57 year old male who presents to the hospital with 2 day history of crampy/pulling right sided abdominal pain and nausea. Patient states pain has become progressive with increasing nausea and had an episode of vomiting. He was unable to tolerate oral intake and felt he was dehydrated and came to the hospital for evaluation. The patient has an extensive history of Chron's disease with history of bowel resection. Initial work up shows mild leukocytosis of 14.2, sodium 141, BUN 13, creatinine 0.89. Liver enzymes are normal. Patient follows closely with Dr. Karlie Roque and has been having ongoing symptoms over the last few months with diarrhea and abdominal pain. He states he was recently t reated with a 4 week course of oral antibiotics outpatient following with Dr. Honeycutt. He is due for a follow up colonoscopy in the next few months. He has had chronic loose stools since his bowel resection. Abdominal pelvis CT showing wall thickening of loops of small large bowel suggestive of inflammatory or infectious enterocolitis. Clinical correlation advised. Status post cholecystectomy. No hydronephrosis. General surgery and infectious disease are consulted. REVIEW OF SYSTEMS: CONSTITUTIONAL: No fever, no malaise, no fatigue. HEENT: No recent visual problems or hearing problems. Denied any sore throat. CARDIOVASCULAR: No chest pain, orthopnea, PND, no palpitations, no syncope. PULMONARY: No shortness of breath, no cough, no hemoptysis. GASTROINTESTINAL: Reports crampy pulling right sided abdominal pain and loose stool. Nausea and vomiting. NEUROLOGICAL: No headaches, no weakness, no numbness. HEMATOLOGICAL: Denies any bleeding or petechiae. GENITOURINARY: Denies any burning micturition, frequency, or urgency. MUSCULOSKELETAL/RHEUMATOLOGICAL: Denies any joint pain, swelling, or any muscle pain. ENDOCRINE: Denies any polyuria or polydipsia. The rest of the 14-point review of systems is negative. PHYSICAL EXAMINATION: GENERAL: The patient is alert and oriented x3, not in any acute distress. Well developed, well nourished. HEENT: Pupils are round and equally reacting to light. EOMI. No scleral icterus. No conjunctival pallor. Normocephalic, atraumatic. No pharyngeal erythema. No thyromegaly. CARDIOVASCULAR: S1 and S2 present. No murmurs, rubs, or gallops. PULMONARY: Chest is clear to auscultation, no wheezing or crackles. ABDOMEN: Soft, RLQ tender, nondistended, normoactive bowel sounds. No palpable organomegaly. MUSCULOSKELETAL: No joint swelling or deformity. EXTREMITIES: No cyanosis, clubbing, or pedal edema. NEUROLOGICAL: Gross neurological examination did not reveal any focal deficits. SKIN: No rashes. Assessment Right lower quadrant abdominal pain with nausea and vomiting Infectious vs. Inflammatory enterocolitis possible an acute Chron's exacerbation Leukocytosis secondary to above History of Chron's disease with bowel resection History of asthma with no acute exacerbation History of hypertension History of GI Bleed History of anxiety GI prophylaxis Full Code Plan Started on IV solumedrol Infectious disease consultation for antibiotic recommendations Decrease IV fluids to 75 mls/hr Continue clear liquid diet Follow up CBC Inflammatory markers ordered The impression and plan of care has been dictated by Cristal Epps Nurse Practitioner as directed. Dr. Libertad MD I have performed a history and physical examination and medical decision making of this patient, discussed the same with the dictator, and agree with the dictators assessment and plan as written, documented as a scribe. Based on total visit time, I have performed more than 50% of this visit. Past Medical History Past Medical History: Asthma, GI Bleed, Hypertension, Thyroid Disorder Additional Past Medical History / Comment(s): PATIENT STATES HE HAS HAD HEMOPTYSIS FOR ABOUT A YEAR (EGD, COLONOSCOPY HAVE BEEN NEGATIVE FOR BLEEDING). CROHN'S. MASS ON BASE OF TONGUE, BENIGN, NOT REMOVED. Thyroid nodule right side. crohn's disease History of Any Multi-Drug Resistant Organisms: None Reported Past Surgical History: Bowel Resection, Cholecystectomy, Orthopedic Surgery, Tonsillectomy Additional Past Surgical History / Comment(s): BOWEL RESECTION W/COLOSTOMY AND LATER REVERSAL R/T CROHN'S . VASECTOMY. lt leg with steel plate (STRAIGHTEN LEG. LONG STORY). Past Anesthesia/Blood Transfusion Reactions: Previous Problems w/ Anesthesia Additional Past Anesthesia/Blood Transfusion Reaction / Comment(s): difficult intubation d/t small airway -has letter pt states indicates to use size 4 glidoscope Past Psychological History: Anxiety Additional Psychological History / Comment(s): VERY ANXIOUS AND FRUSTRATED THAT NO CAUSE FOUND FOR HEMOPTYSIS. Smoking Status: Never smoker Past Alcohol Use History: None Reported Past Drug Use History: None Reported - Past Family History Mother Family Medical History: No Reported History Medications and Allergies Home Medications Medication Instructions Recorded Confirmed Type lisinopriL [Zestril] 20 mg PO BID #180 tab 01/16/21 09/17/22 Rx Triamterene-Hctz 37.5-25Mg 0.5 tab PO DAILY 09/17/22 09/17/22 History [Maxzide 37.5-25] rifAMPin [Rifampin] 600 mg PO DAILY 09/17/22 09/17/22 History Allergies Allergy/AdvReac Type Severity Reaction Status Date / Time Iodinated Contrast Media Allergy Rash/Hives Verified 09/17/22 07:06 Penicillins Allergy Rash/Hives Verified 09/17/22 07:06 Physical Exam Vitals: Vital Signs Temp Pulse Pulse Resp BP BP Pulse Ox 09/17/22 07:00 98.0 F 80 18 115/73 96 09/17/22 02:00 18 09/17/22 01:22 98.2 F 80 18 139/85 95 09/17/22 00:58 98.2 F 80 16 139/89 96 09/16/22 23:46 87 19 147/81 98 09/16/22 23:30 98.0 F 90 18 144/83 97 09/16/22 23:10 97.8 F 100 24 175/12 98 09/16/22 22:19 98.1 F 100 20 154/99 96 Intake and Output 09/16/22 09/17/22 09/17/22 22:59 06:59 14:59 Intake Total 600 Balance 600 Intake: Intake, IV Titration 600 Amount Sodium Chloride 0.9% 1, 600 000 ml @ 130 mls/hr IV . Q7H42M [facility] Rx#:[id number] Other: Voiding Method Toilet # Voids 1 Weight 129.274 kg 129.274 kg Results CBC & Chem 7: 09/16/22 22:41 09/16/22 22:41 Labs: Abnormal Lab Results - Last 24 Hours (Table) 09/16/22 09/16/22 Range/Units 22:41 22:41 WBC 14.2 H (3.8-10.6) k/uL Neutrophils # 12.3 H (1.3-7.7) k/uL Chloride 108 H (98-107) mmol/L Carbon Dioxide 18 L (22-30) mmol/L Glucose 127 H (74-99) mg/dL Thrombosis Risk Factor Assmnt - Choose All That Apply Any of the Below Risk Factors Present?: Yes Each Factor Represents 1 point: Age 41-60 years, Obesity (BMI >25) Other Risk Factors: No Other congenital or acquired thrombophilia - If yes, enter type in comment: No Thrombosis Risk Factor Assessment Total Risk Factor Score: 2 Thrombosis Risk Factor Assessment Level: Low Risk Assessment and Plan Time with Patient: Less than 30
[2022-09-17] MEDS: LACTATED RINGERS 1,000 ML IV SCH (15:42)
[2022-09-17] MEDS: metroNIDAZOLE-NS PMX 500 MG in SALINE 1 100ML.BAG IVPB SCH (17:00)
[2022-09-17] MEDS: methylPREDNISolone SOD SUCCI 40 MG/ML 1 ML VIAL IV SCH (20:11)
[2022-09-17] MEDS ORDERED: methylPREDNISolone SOD SUCCI 125 MG/2 ML VIAL IV SCH (21:00)
--- NOTE | 2022-09-17 21:44 | P.CONS ---
History of Present Illness - Reason for Consult Consult date: 09/17/22 Infection versus inflammation Requesting physician: Cristal Epps - Chief Complaint Right-sided abdominal pain x one day - History of Present Illness Patient is a 57-year-old male with a past medical history significant for Crohn's disease in this patient noticed to have positive QuantiFERON TB Gold test as a work-up for starting biologic for underlying Crohn's disease for the patient recently has completed a 4-month course of rifampin patient is presenti ng to [facility] ER last night for evaluation of abdominal pain apparently has been going on for for a day or 2 but more worse yesterday pain has been mostly right-sided lower abdomen describing it to be colicky sharp was almost 7-8 out of 10 with no radiation patient has felt nauseated and did have episode of vomiting however the patient denies having any worsening diarrhea or blood or mucus in the stool and denies any fever with the symptoms the patient was evaluated on arrival to the ER the patient was afebrile and no fever has been recorded subsequently patient did have vital of 14.2 with a left shift kidney function was normal liver enzymes are normal patient did have a CT of ab dominal pelvis wall thickening of loops of small large bowel suggestive of inflammatory or infectious enterocolitis patient was started on steroids concerning for exacerbation of his Crohn's disease infectious was consulted for further management and recommendation for antibiotic patient to have allergies to penicillin with rash no history of anaphylaxis Review of Systems Positive point and negatives has been mentioned in the HPI, complete review of systems was performed and all other systems are negative Past Medical History Past Medical History: Asthma, GI Bleed, Hypertension, Thyroid Disorder Additional Past Medical History / Comment(s): PATIENT STATES HE HAS HAD HEMOPTYSIS FOR ABOUT A YEAR (EGD, COLONOSCOPY HAVE BEEN NEGATIVE FOR BLEEDING). CROHN'S. MASS ON BASE OF TONGUE, BENIGN, NOT REMOVED. Thyroid nodule right side. crohn's disease History of Any Multi-Drug Resistant Organisms: None Reported Past Surgical History: Bowel Resection, Cholecystectomy, Orthopedic Surgery, Tonsillectomy Additional Past Surgical History / Comment(s): BOWEL RESECTION W/COLOSTOMY AND LATER REVERSAL R/T CROHN'S . VASECTOMY. lt leg with steel plate (STRAIGHTEN LEG. LONG STORY). Past Anesthesia/Blood Transfusion Reactions: Previous Problems w/ Anesthesia Additional Past Anesthesia/Blood Transfusion Reaction / Comm: difficult intubation d/t small airway -has letter pt states indicates to use size 4 glidoscope Past Psychological History: Anxiety Additional Psychological History / Comment(s): VERY ANXIOUS AND FRUSTRATED THAT NO CAUSE FOUND FOR HEMOPTYSIS. Smoking Status: Never smoker Past Alcohol Use History: None Reported Past Drug Use History: None Reported - Past Family History Mother Family Medical History: No Reported History Medications and Allergies Home Medications Medication Instructions Recorded Confirmed Type lisinopriL [Zestril] 20 mg PO BID #180 tab 01/16/21 09/17/22 Rx Triamterene-Hctz 37.5-25Mg 0.5 tab PO DAILY 09/17/22 09/17/22 History [Maxzide 37.5-25] rifAMPin [Rifampin] 600 mg PO DAILY 09/17/22 09/17/22 History Pantoprazole [Protonix] 40 mg PO DAILY #14 tab 09/19/22 Rx cefUROXime axetiL [Ceftin] 500 mg PO BID 7 Days #14 tab 09/19/22 Rx metroNIDAZOLE [Flagyl] 500 mg PO TID 7 Days #21 tab 09/19/22 Rx predniSONE [Deltasone] 20 mg PO BID #21 tab 09/19/22 Rx Allergies Allergy/AdvReac Type Severity Reaction Status Date / Time Iodinated Contrast Media Allergy Rash/Hives Verified 09/17/22 07:06 Penicillins Allergy Rash/Hives Verified 09/17/22 07:06 Physical Exam Vitals: Vital Signs Temp Pulse Pulse Resp BP BP Pulse Ox 09/17/22 11:51 98.1 F 88 18 108/74 96 09/17/22 07:00 98.0 F 80 18 115/73 96 09/17/22 02:00 18 09/17/22 01:22 98.2 F 80 18 139/85 95 09/17/22 00:58 98.2 F 80 16 139/89 96 09/16/22 23:46 87 19 147/81 98 09/16/22 23:30 98.0 F 90 18 144/83 97 09/16/22 23:10 97.8 F 100 24 175/12 98 09/16/22 22:19 98.1 F 100 20 154/99 96 Intake and Output 09/16/22 09/17/22 09/17/22 22:59 06:59 14:59 Intake Total 600 Balance 600 Intake: Intake, IV Titration 600 Amount Sodium Chloride 0.9% 1, 600 000 ml @ 130 mls/hr IV . Q7H42M [facility] Rx#:[id number] Other: Voiding Method Toilet # Voids 1 Weight 129.274 kg 129.274 kg GENERAL DESCRIPTION: Middle-aged male lying in bed, no distress. No tachypnea or accessory muscle of respiration use. HEENT: Shows Pallor , no scleral icterus. Oral mucous membrane is dry. NECK: Trachea central, no thyromegaly. LUNGS: Unlabored breathing. Clear to auscultation anteriorly. No wheeze or crackle. HEART: S1, S2, regular rate and rhythm. No loud murmur ABDOMEN: Soft, mild right-sided tenderness EXTREMITIES: No edema of feet. SKIN: No rash, no masses palpable. NEUROLOGICAL: The patient is awake, alert, oriented x3, mood and affect normal. Results CBC & Chem 7: 09/16/22 22:41 09/19/22 06:41 Labs: Abnormal Lab Results - Last 24 Hours (Table) 09/16/22 09/16/22 Range/Units 22:41 22:41 WBC 14.2 H (3.8-10.6) k/uL Neutrophils # 12.3 H (1.3-7.7) k/uL Chloride 108 H (98-107) mmol/L Carbon Dioxide 18 L (22-30) mmol/L Glucose 127 H (74-99) mg/dL Assessment and Plan (1) Leukocytosis Current Visit: Yes Status: Acute Code(s): D72.829 - ELEVATED WHITE BLOOD CELL COUNT, UNSPECIFIED SNOMED Code(s): 945514322 (2) Ileitis Current Visit: Yes Status: Acute Code(s): K52.9 - NONINFECTIVE GASTROENTERITIS AND COLITIS, UNSPECIFIED SNOMED Code(s): 84753660 Plan: 1patient presented to hospital with abdominal pain vomiting and diarrhea in this patient who did have abnormality of CT abdominal pelvis with thickening of the loops of small bowel concerning for possible exacerbation of his inflammatory bowel disease less likely infectious colitis but not entirely excluded and the patient also high risk of bacteremia of gut origin from his inflamed bowel 2-patient with a penicillin allergy that would limit the number of antibiotics safe to use but no history of anaphylaxis 3-obtain stool for C. difficile check a stool culture 4-we will empirically add Rocephin 2 g daily and Flagyl We will follow on clinical condition and cultures to further adjust medication if needed Thank you for this consultation we will follow the patient along with you Time with Patient: Greater than 30
[2022-09-18] MEDS: metroNIDAZOLE-NS PMX 500 MG in SALINE 1 100ML.BAG IVPB SCH ×3 (00:21→15:31)
[2022-09-18] MEDS: MORPHINE SULFATE 4 MG/ML SYRINGE IV PRN ×3 (00:23→18:04)
[2022-09-18] MEDS: LACTATED RINGERS 1,000 ML IV SCH ×2 (04:21→18:04)
[2022-09-18] MEDS: lisinopriL 20 MG TAB PO SCH ×2 (09:26→21:04)
[2022-09-18] MEDS: methylPREDNISolone SOD SUCCI 40 MG/ML 1 ML VIAL IV SCH ×2 (10:04→21:04)
[2022-09-18] MEDS: PANTOPRAZOLE 40 MG/10 ML VIAL IVP SCH (10:04)
--- NOTE | 2022-09-18 12:28 | P.PN ---
Subjective Progress Note Date: 09/18/22 CHIEF COMPLAINT: Abdominal pain HISTORY OF PRESENT ILLNESS: Patient reports that his abdominal pain and bloating is less today. He denies any nausea or vomiting. He is tolerating clear liquids. He is requesting advancement of diet. His stools were less frequent. Stool for C. diff is negative. Stool cultures are pending. Afebrile. Sed rate level 15 CRP 0.7. Patient seen by infectious disease PHYSICAL EXAM: VITAL SIGNS: Reviewed. GENERAL: Well-developed in no acute distress. HEENT: No sclera icterus. Extraocular movements grossly intact. Moist buccal mucosa. Head is atraumatic, normocephalic. ABDOMEN: Soft. Nondistended. Mild tenderness along the right side of abdomen NEUROLOGIC: Alert and oriented. Cranial nerves II through XII grossly intact. ASSESSMENT: 1. Right-sided abdominal pain possibly related to Crohn's exacerbation or enterocolitis PLAN: -Advance to full liquids -Continue IV steroids for Crohn's exacerbation -Continue antibiotics -Follow up on stool cultures -Follow up outpatient with GI service for colonoscopy that is already scheduled on October 21 Physician Bearing Grinder note has been reviewed by physician. Signing provider agrees with the documented findings, assessment, and plan of care. I have personally seen and examined the patient, reviewed the COMMUNICATION MANAGER /PAs history, exam and MDM and agree with the assessment and plan as written. Based on total visit time, I have performed more than 50% of the visit. As above: Patient feels better today. He was just started on full liquids. He has tolerated that thus far. Pain is improved. Continue full liquids for today. Advance diet tomorrow if tolerates. Objective - Vital Signs Vital signs: Vital Signs Temp 97.6 F 09/18/22 07:56 Pulse 73 09/18/22 07:56 Resp 16 09/18/22 07:56 BP 109/72 09/18/22 07:56 Pulse Ox 98 09/18/22 07:56 FiO2 Intake & Output 09/17/22 09/18/22 09/18/22 18:59 06:59 18:59 Intake Total 1650 1400 465 Balance 1650 1400 465 Intake: Intake, IV Titration 1650 1000 Amount Lactated Ringers 1,000 ml 150 900 @ 75 mls/hr IV .[id number] [facility] Rx#:[id number] Sodium Chloride 0.9% 1, 1300 000 ml @ 130 mls/hr IV . Q7H42M [facility] Rx#:[id number] cefTRIAXone 2 gm In 100 Sodium Chloride 0.9% 50 ml @ 100 mls/hr IVPB Q24HR [facility] Rx#:[id number] metroNIDAZOLE-NS PMX 500 100 100 mg In Saline 1 100ml.bag @ 100 mls/hr IVPB Q8HR [facility] Rx#:[id number] Oral 400 465 Other: Voiding Method Toilet # Voids 3 # Bowel Movements 3 - Labs CBC & Chem 7: 09/16/22 22:41 09/16/22 22:41 Labs: Abnormal Lab Results - Last 24 Hours (Table) 09/17/22 Range/Units 11:30 Procalcitonin 0.14 H (0.02-0.09) ng/mL Microbiology - Last 24 Hours (Table) 09/17/22 20:16 Stool Culture - Preliminary Stool
--- NOTE | 2022-09-18 15:31 | P.PN ---
Subjective Progress Note Date: 09/18/22 This is a 57 year old male who presents to the hospital with 2 day history of crampy/pulling right sided abdominal pain and nausea. Patient states pain has become progressive with increasing nausea and had an episode of vomiting. He was unable to tolerate oral intake and felt he was dehydrated and came to the hospital for evaluation. The patient has an extensive history of Chron's disease with history of bowel resection. Initial work up shows mild leukocytosis of 14.2, sodium 141, BUN 13, creatinine 0.89. Liver enzymes are normal. Patient follows closely with Dr. Karlie Roque and has been having ongoing symptoms over the last few months with diarrhea and abdominal pain. He states he was recently treated with a 4 week course of oral antibiotics outpatient following with Dr. Honeycutt. He is due for a follow up colonoscopy in the next few months. He has had chronic loose stools since his bowel resection. Abdominal pelvis CT showing wall thickening of loops of small large bowel suggestive of inflammatory or infectious enterocolitis. Clinical correlation advised. Status post cholecystectomy. No hydronephrosis. General surgery and infectious disease are consulted. 09/18/2022 Patient is evaluated today sitting up in bed. Had a bowel movement this morning. Abdominal pain has significantly improved. Procalcitonin level 0.14. C.Dif is negative. CRP and ESR are normal. Patient is on IV ceftriaxone and IV metronidazole. ID is following. Started on IV solumedrol Q12. Patient will be monitored overnight. Review of Systems Constitutional: Denied any fatigue denied any fever. Cardio vascular: denied any chest pain, palpitations Gastrointestinal: denied any nausea, vomiting, diarrhea Pulmonary: Denied any shortness of breath cough Neurologic denied any new focal deficits All inpatient medications were reviewed and appropriate changes in these medications as dictated in the interval history and assessment and plan. PHYSICAL EXAMINATION: GENERAL: The patient is alert and oriented x3, not in any acute distress. Well developed, well nourished. HEENT: Pupils are round and equally reacting to light. EOMI. No scleral icterus. No conjunctival pallor. Normocephalic, atraumatic. No pharyngeal erythema. No thyromegaly. CARDIOVASCULAR: S1 and S2 present. No murmurs, rubs, or gallops. PULMONARY: Chest is clear to auscultation, no wheezing or crackles. ABDOMEN: Soft, RLQ tender- improved, nondistended, normoactive bowel sounds. No palpable organomegaly. MUSCULOSKELETAL: No joint swelling or deformity. EXTREMITIES: No cyanosis, clubbing, or pedal edema. NEUROLOGICAL: Gross neurological examination did not reveal any focal deficits. SKIN: No rashes. Assessment Right lower quadrant abdominal pain with nausea and vomiting improving Infectious vs. Inflammatory enterocolitis possible an acute Chron's exacerbation Leukocytosis secondary to above History of Chron's disease with bowel resection History of asthma with no acute exacerbation History of hypertension History of GI Bleed History of anxiety GI prophylaxis Full Code Plan Continue on IV solu-medrol Diet advanced to full liquid Continue on IV antibiotics BMP in AM Patient has a colonoscopy scheduled already for October 21 Possible D/C in the next 24 hours The impression and plan of care has been dictated by Cristal Epps Nurse Practitioner as directed. Dr. Libertad MD I have performed a history and physical examination and medical decision making of this patient, discussed the same with the dictator, and agree with the dictators assessment and plan as written, documented as a scribe. Based on total visit time, I have performed more than 50% of this visit. Objective - Vital Signs Vital signs: Vital Signs Temp 97.6 F 09/18/22 07:56 Pulse 73 09/18/22 07:56 Resp 16 09/18/22 07:56 BP 109/72 09/18/22 07:56 Pulse Ox 98 09/18/22 07:56 FiO2 Intake & Output 09/17/22 09/18/22 09/18/22 18:59 06:59 18:59 Intake Total 1650 1400 465 Balance 1650 1400 465 Intake: Intake, IV Titration 1650 1000 Amount Lactated Ringers 1,000 ml 150 900 @ 75 mls/hr IV .[id number] [facility] Rx#:[id number] Sodium Chloride 0.9% 1, 1300 000 ml @ 130 mls/hr IV . Q7H42M [facility] Rx#:[id number] cefTRIAXone 2 gm In 100 Sodium Chloride 0.9% 50 ml @ 100 mls/hr IVPB Q24HR [facility] Rx#:[id number] metroNIDAZOLE-NS PMX 500 100 100 mg In Saline 1 100ml.bag @ 100 mls/hr IVPB Q8HR [facility] Rx#:[id number] Oral 400 465 Other: Voiding Method Toilet # Voids 3 # Bowel Movements 3 - Labs CBC & Chem 7: 09/16/22 22:41 09/16/22 22:41 Labs: Abnormal Lab Results - Last 24 Hours (Table) 09/17/22 Range/Units 11:30 Procalcitonin 0.14 H (0.02-0.09) ng/mL Microbiology - Last 24 Hours (Table) 09/17/22 20:16 Stool Culture - Preliminary Stool Assessment and Plan Time with Patient: Less than 30
[2022-09-19] MEDS: metroNIDAZOLE-NS PMX 500 MG in SALINE 1 100ML.BAG IVPB SCH ×3 (00:30→15:15)
[2022-09-19] MEDS: PANTOPRAZOLE 40 MG/10 ML VIAL IVP SCH (08:56)
[2022-09-19] MEDS: lisinopriL 20 MG TAB PO SCH (08:56)
[2022-09-19] MEDS: methylPREDNISolone SOD SUCCI 40 MG/ML 1 ML VIAL IV SCH (08:56)
[2022-09-19] MEDS: LACTATED RINGERS 1,000 ML IV SCH (09:05)
--- NOTE | 2022-09-19 11:10 | P.PN ---
Subjective Progress Note Date: 09/19/22 CHIEF COMPLAINT: Abdominal pain HISTORY OF PRESENT ILLNESS: Patient reports that his pain had moved to a more right upper quadrant pain. He did have 3-4 liquidy stools this morning. No blood in the stools. He tolerated a full liquid diet. Does report overall that his pain is less. He reports that he is going home today no matter what and continue on a full liquid to soft diet. Stool cultures are pending. Afebrile. Labs pending PHYSICAL EXAM: VITAL SIGNS: Reviewed. GENERAL: Well-developed in no acute distress. HEENT: No sclera icterus. Extraocular movements grossly intact. Moist buccal mucosa. Head is atraumatic, normocephalic. ABDOMEN: Soft. Nondistended. Mild tenderness right side of abdomen NEUROLOGIC: Alert and oriented. Cranial nerves II through XII grossly intact. ASSESSMENT: 1. Right-sided abdominal pain possibly related to Crohn's exacerbation or enterocolitis PLAN: -Continue full liquid diet. Patient can be discharged on a full liquid diet to advance to soft diet at home over the next few days -Recommend oral prednisone at discharge for Crohn's exacerbation -Antibiotics per ID service -Patient can be discharged from surgical standpoint with outpatient follow-up with GI service Physician Rotary Drier Operator note has been reviewed by physician. Signing provider agrees with the documented findings, assessment, and plan of care. I have personally seen and examined the patient, reviewed the INTERIOR DESIGN PROGRAM CHAIR /PAs history, exam and MDM and agree with the assessment and plan as written. Based on total visit time, I have performed more than 50% of the visit. As above: Patient doing well today. He would like to go home. We'll plan follow-up with GI postdischarge. Continue steroids after discharge. No surgical follow-up necessary. Objective - Vital Signs Vital signs: Vital Signs Temp 97.7 F 09/19/22 07:34 Pulse 63 09/19/22 07:34 Resp 18 09/19/22 07:34 BP 165/81 09/19/22 07:34 Pulse Ox 99 09/19/22 07:34 FiO2 Intake & Output 09/18/22 09/19/22 09/19/22 18:59 06:59 18:59 Intake Total 945 590 Output Total 4 Balance 941 590 Intake: Oral 945 590 Output: Stool 4 Other: # Voids 5 2 - Labs CBC & Chem 7: 09/16/22 22:41 09/19/22 06:41 Labs: Microbiology - Last 24 Hours (Table) 09/17/22 00:45 Blood Culture - Preliminary Blood 09/17/22 00:30 Blood Culture - Preliminary Blood
[2022-09-19 11:28] LABS: African American GFR (CKD) 99.8 (60.0-200.0); Anion Gap 10.1 mmol/L (10.00-18.00); BUN/Creat Ratio 13.73 Ratio (12.00-20.00); Blood Urea Nitrogen 13.5 mg/dL (9.0-27.0); Calcium 9.4 mg/dL (8.7-10.3); Carbon Dioxide 25.5 mmol/L (20.0-27.5); Non-African American GFR(CKD) 86.1 (60.0-200.0)
[2022-09-19 13:10] VITALS: BP 173/80; PULSE 69; RESP 16; TEMP 97.9
[2022-09-19] MEDS ORDERED: TRIAMTERENE-HCTZ 37.5-25MG 1 EACH TAB PO SCH (14:00)
--- NOTE | 2022-09-19 15:48 | P.PN ---
Subjective Progress Note Date: 09/18/22 Principal diagnosis: Leukocytosis and ileitis Patient is a 57 year male with a past medical history significant for Crohn's disease not on a biologic recently completed 4 month course of rifampin presented to hospital right-sided abdominal pain and patient was noticed to have wall thickening of loops of small and large bowel suggestive of inflammatory or infectious enterocolitis on today's evaluation that is 09/18/2022, the patient is afebrile patient was complaining of some itching last night and attributing it with antibiotics however did not have any rash, patient is breathing comfortably, abdominal pain has decreased in intensity and wants his diet to be advanced no chest pain shortness with a cough Objective - Vital Signs Vital signs: Vital Signs Temp 97.6 F 09/18/22 07:56 Pulse 73 09/18/22 07:56 Resp 16 09/18/22 07:56 BP 109/72 09/18/22 07:56 Pulse Ox 98 09/18/22 07:56 FiO2 Intake & Output 09/17/22 09/18/22 09/18/22 18:59 06:59 18:59 Intake Total 1650 1400 465 Balance 1650 1400 465 Intake: Intake, IV Titration 1650 1000 Amount Lactated Ringers 1,000 ml 150 900 @ 75 mls/hr IV .[id number] [facility] Rx#:[id number] Sodium Chloride 0.9% 1, 1300 000 ml @ 130 mls/hr IV . Q7H42M [facility] Rx#:[id number] cefTRIAXone 2 gm In 100 Sodium Chloride 0.9% 50 ml @ 100 mls/hr IVPB Q24HR [facility] Rx#:[id number] metroNIDAZOLE-NS PMX 500 100 100 mg In Saline 1 100ml.bag @ 100 mls/hr IVPB Q8HR [facility] Rx#:[id number] Oral 400 465 Other: Voiding Method Toilet # Voids 3 # Bowel Movements 3 - Exam GENERAL DESCRIPTION: A middle-aged male lying in bed in no distress RESPIRATORY SYSTEM: Unlabored breathing , decreased breath sounds at bases HEART: S1 S2 regular rate and rhythm , ABDOMEN: Soft , no tenderness EXTREMITIES: No edema feet - Labs CBC & Chem 7: 09/16/22 22:41 09/19/22 06:41 Labs: Abnormal Lab Results - Last 24 Hours (Table) 09/17/22 Range/Units 11:30 Procalcitonin 0.14 H (0.02-0.09) ng/mL Microbiology - Last 24 Hours (Table) 09/17/22 20:16 Stool Culture - Preliminary Stool Assessment and Plan (1) Ileitis Current Visit: Yes Status: Acute Code(s): K52.9 - NONINFECTIVE GASTROENTERITIS AND COLITIS, UNSPECIFIED SNOMED Code(s): 05715300 (2) Leukocytosis Current Visit: Yes Status: Acute Code(s): D72.829 - ELEVATED WHITE BLOOD CELL COUNT, UNSPECIFIED SNOMED Code(s): 424944244 Plan: 1patient presented to hospital with abdominal pain vomiting and diarrhea in thi s patient who did have abnormality of CT abdominal pelvis with thickening of the loops of small bowel concerning for possible exacerbation of his inflammatory bowel disease less likely infectious colitis but not entirely excluded and the patient also high risk of bacteremia of gut origin from his inflamed bowel 2-patient with a penicillin allergy that would limit the number of antibiotics safe to use but no history of anaphylaxis 3- stool for C. difficile came back negative, stool culture currently pending 4-patient to continue with Rocephin 2 g daily and Flagyl, a discussion with the patient that itching was not likely related to any of antibodies and the patient will monitor closely Time with Patient: Less than 30
--- NOTE | 2022-09-19 15:50 | P.PN ---
Subjective Progress Note Date: 09/19/22 Principal diagnosis: Leukocytosis and ileitis Patient is a 57 year male with a past medical history significant for Crohn's disease not on a biologic recently completed 4 month course of rifampin presented to hospital right-sided abdominal pain and patient was noticed to have wall thickening of loops of small and large bowel suggestive of inflammatory or infectious enterocolitis on today's evaluation that is 09/19/2022, the patient remains to be afebrile , patient is breathing comfortably on room air, abdominal pain has decreased in intensity and already his diet no chest pain shortness of breath no cough no rash Objective - Vital Signs Vital signs: Vital Signs Temp 97.7 F 09/19/22 07:34 Pulse 63 09/19/22 07:34 Resp 18 09/19/22 07:34 BP 165/81 09/19/22 07:34 Pulse Ox 99 09/19/22 07:34 FiO2 Intake & Output 09/18/22 09/19/22 09/19/22 18:59 06:59 18:59 Intake Total 945 590 Output Total 4 Balance 941 590 Intake: Oral 945 590 Output: Stool 4 Other: # Voids 5 2 - Exam GENERAL DESCRIPTION: A middle-aged male lying in bed in no distress RESPIRATORY SYSTEM: Unlabored breathing , decreased breath sounds at bases HEART: S1 S2 regular rate and rhythm , ABDOMEN: Soft , no tenderness EXTREMITIES: No edema feet - Labs CBC & Chem 7: 09/16/22 22:41 09/19/22 06:41 Labs: Abnormal Lab Results - Last 24 Hours (Table) 09/19/22 Range/Units 06:41 Glucose 118 H (70-110) mg/dL Microbiology - Last 24 Hours (Table) 09/17/22 00:45 Blood Culture - Preliminary Blood 09/17/22 00:30 Blood Culture - Preliminary Blood Assessment and Plan (1) Ileitis Current Visit: Yes Status: Acute Code(s): K52.9 - NONINFECTIVE GASTROENTERITIS AND COLITIS, UNSPECIFIED SNOMED Code(s): 23415144 (2) Leukocytosis Current Visit: Yes Status: Acute Code(s): D72.829 - ELEVATED WHITE BLOOD CELL COUNT, UNSPECIFIED SNOMED Code(s): 599794069 Plan: 1patient presented to hospital with abdominal pain vomiting and diarrhea in this patient who did have abnormality of CT abdominal pelvis with thickening of the loops of small bowel concerning for possible exacerbation of his inflammatory bowel disease less likely infectious colitis but not entirely excluded and the patient also high risk of bacteremia of gut origin from his inflamed bowel 2-patient with a penicillin allergy that would limit the number of antibiotics safe to use but no history of anaphylaxis 3- stool for C. difficile came back negative, stool culture currently pending 4-patient seemed to showing clinical improvement with Rocephin 2 g daily and Flagyl, and plan to finish therapy short course of oral Ceftin and Flagyl discussed with ROUGE MIXER for admitting team Time with Patient: Less than 30
--- NOTE | 2022-09-21 23:24 | P.DS ---
Providers Date of admission: 09/17/22 00:17 Attending physician: Bekah Best Consults: 09/17/22 00:17 Consult Physician Routine Consulting Provider: Víctor Alatorre Consult Reason/Comments: abdominal pain Do you want consulting provider notified?: Yes 09/17/22 11:11 Consult Physician Routine Consulting Provider: Sharif Honeycutt Consult Reason/Comments: Known to pt/ infectious vs. inflammatory enterocolitis Do you want consulting provider notified?: Yes Primary care physician: Jeanmarie Reid [place] Course: Final Diagnosis Right lower quadrant abdominal pain with nausea and vomiting improving Infectious vs. Inflammatory enterocolitis possible an acute Chron's exacerbation Leukocytosis secondary to above History of Chron's disease with bowel resection History of asthma with no acute exacerbation History of hypertension History of GI Bleed History of anxiety Discharge Disposition Patient is stable for discharge. Patient has been cleared by surgical and GI services. Recommend full liquid diet for 2 weeks. Discharge on oral prednisone and course of antibiotics with ceftin and flagyl. Follow up with PCP Dr. Reid, Dr Honeycutt and Dr. Karlie Roque. Repeat labs BMP and CBC in 2 to 3 days. Hospital Course This is a 57 year old male who presents to the hospital with 2 day history of crampy/pulling right sided abdominal pain and nausea. Patient states pain has become progressive with increasing nausea and had an episode of vomiting. He was unable to tolerate oral intake and felt he was dehydrated and came to the hospital for evaluation. The patient has an extensive history of Chron's disease with history of bowel resection. Initial work up shows mild leukocytosis of 14.2, sodium 141, BUN 13, creatinine 0.89. Liver enzymes are normal. Patient follows closely with Dr. Karlie Roque and has been having ongoing symptoms over the last few months with diarrhea and abdominal pain. He states he was recently treated with a 4 week course of oral antibiotics outpatient following with Dr. Sangeetha snider. He is due for a follow up colonoscopy in the next few months. He has had chronic loose stools since his bowel resection. Abdominal pelvis CT showing wall thickening of loops of small large bowel suggestive of inflammatory or infectious enterocolitis. Clinical correlation advised. Status post cholecystectomy. No hydronephrosis. Patient is admitted for possible Chron's exacerbation. General surgery and infectious disease have evaluated the patient. ESR and CRP are with in normal limits. Procal is negative at 0.14. C.Dif is negative. Stool culture is negative for salmonella, shigella, e.coli or campylobacter. Patient was given IV steroids and IV ceftriaxone and IV metronidazole while inpatient. Abdominal pain has improved. Patient is tolerating full liquid diet and recommending to continue for 2 weeks on discharge. Follow up closely with Dr. Karlie Roque and keep same colonoscopy scheduled for October 21. Please see medication reconciliation for a list of current medication. Thank you for allowing us to participate in the care of this patient. The impression and plan of care has been dictated by Cristal Epps, Nurse Practitioner as directed. Dr. Libertad MD I have performed a history and physical examination and medical decision making of this patient, discussed the same with the dictator, and agree with the dictators assessment and plan as written, documented as a scribe. Based on total visit time, I have performed more than 50% of this visit. Patient Condition at Discharge: Stable Plan - Discharge Summary Discharge Rx Participant: No New Discharge Prescriptions: New predniSONE [Deltasone] 20 mg PO BID #21 tab Pantoprazole [Protonix] 40 mg PO DAILY #14 tab cefUROXime axetiL [Ceftin] 500 mg PO BID 7 Days #14 tab metroNIDAZOLE [Flagyl] 500 mg PO TID 7 Days #21 tab Continue lisinopriL [Zestril] 20 mg PO BID #180 tab Triamterene-Hctz 37.5-25Mg [Maxzide 37.5-25] 0.5 tab PO DAILY rifAMPin [Rifampin] 600 mg PO DAILY Discharge Medication List lisinopriL [Zestril] 20 mg PO BID #180 tab 01/16/21 [Rx] Triamterene-Hctz 37.5-25Mg [Maxzide 37.5-25] 0.5 tab PO DAILY 09/17/22 [History] rifAMPin [Rifampin] 600 mg PO DAILY 09/17/22 [History] Pantoprazole [Protonix] 40 mg PO DAILY #14 tab 09/19/22 [Rx] cefUROXime axetiL [Ceftin] 500 mg PO BID 7 Days #14 tab 09/19/22 [Rx] metroNIDAZOLE [Flagyl] 500 mg PO TID 7 Days #21 tab 09/19/22 [Rx] predniSONE [Deltasone] 20 mg PO BID #21 tab 09/19/22 [Rx] Follow up Appointment(s)/Referral(s): Chapis Roque MD [Family Provider] - 1 Week Jeanmarie Reid DO [Primary Care Provider] - 1-2 days (The office is closed please call and make follow up appointment.) Sharif Honeycutt MD [STAFF PHYSICIAN] - 1 Week (The office is closed please call and make follow up appointment.) Ambulatory/Diagnostic Orders: Basic Metabolic Panel [LAB.AMB] Time Frame: 3 Days, Location: None Selected Complete Blood Count w/diff [LAB.AMB] Time Frame: 3 Days, Location: None Selected Activity/Diet/Wound Care/Special Instructions: Full liquid diet advance as tolerated Complete oral antibiotic therapy for 7 days. Oral prednisone 20 mg daily for 1 week than transition to prednisone 20 mg daily for 1 week Follow up labs on discharge Follow up with Dr. Karlie Roque in 1 week and keep same appt for colonoscopy on October 21. Discharge Disposition: HOME SELF-CARE
== END 2022-09-19 17:45 | disposition home or self-care (01) | DRG 392 ==
LOC: EC 22:18 → 5NMEDONC 09-17 00:17
PROVIDERS: ADMIT Hospitalist; ATTEND Hospitalist
DX: A09 Infectious gastroenteritis and colitis, unspecified (principal); K50.912 Crohn's disease, unspecified, with intestinal obstruction; K29.70 Gastritis, unspecified, without bleeding; I10 Essential (primary) hypertension; J45.909 Unspecified asthma, uncomplicated; F41.9 Anxiety disorder, unspecified; Z87.19 Personal history of other diseases of the digestive system; Z86.010 Personal history of colon polyps; Z79.899 Other long term (current) drug therapy; Z90.49 Acquired absence of other specified parts of digestive tract; Z88.0 Allergy status to penicillin; Z91.041 Radiographic dye allergy status
CPT/HCPCS: 36415; 74177; 80048; 80053; 83690; 84145; 85025; 85652; 86140; 87045; 87046; 87324; 96361; 96374; 96375; 99285

== ENCOUNTER 2022-10-21 06:32 | Day surgery (SDC) | payer MEDICARE, OTHER ==
[2022-10-20 08:51] VITALS: BMI 39.0
[~2022-10-21 06:32] MED LIST changes: -CLINDAMYCIN 600 MG in DEXTROSE 5% IN WATER 50 ML IVPB PRN; -DEXAMETHASONE SOD PHOSPHATE 4 MG/ML 1 ML VIAL IV PRN; -FAMOTIDINE 20 MG/2 ML VIAL IV PRN; -LIDOCAINE 1% (10MG/ML) FOR IV START INTRADERMA PRN; -ONDANSETRON 4 MG/2 ML VIAL IVP PRN
[2022-10-21 07:00] VITALS: TEMP 97
[2022-10-21] MEDS ORDERED: ONDANSETRON 4 MG/2 ML VIAL ONE (07:10)
[2022-10-21] MEDS ORDERED: ONDANSETRON 4 MG/2 ML VIAL IVP ONE (07:11)
[2022-10-21 07:13] LABS: Glucose,Whole Blood 138 mg/dL (70-110)
[2022-10-21] MEDS ORDERED: PROPOFOL 10 MG/ML 20 ML VIAL IV ONE (08:13)
--- NOTE | 2022-10-21 08:30 | P.PCN ---
Date of Procedure: 10/21/22 Procedure(s) Performed: BRIEF HISTORY: Patient is a 57-year-old pleasant white male scheduled for an elective colonoscopy as a part of surveillance of prior history of colon polyps. He does have long-standing history of Crohn's disease status post terminal ileal resection several years ago. He was diagnosed with large hepatic flexure polyp normal. 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 Subsequently repeat colonoscopy in May 2020 revealed 5 mm sessile polyp that was completely removed. He scheduled for a surveillance colonoscopy today. PROCEDURE PERFORMED: Colonoscopy with biopsy. PREOPERATIVE DIAGNOSIS: History of colon polyps and history of Crohn's disease. IV sedation per Anesthesia. PROCEDURE: After informed consent was obtained, the patient, was brought into the endoscopy unit. IV sedation was administered by Anesthesia under continuous monitoring. Digital rectal examination was normal. Initially the Olympus CF-160 flexible video colonoscope was then inserted in the rectum, gradually advanced into the right colon without any difficulty. Careful examination was performed as the scope was gradually being withdrawn. Prep was excellent. The ileocolic anastomosis was visualized and appeared significantly narrowed. There was one superficial erosion identified at the anastomosis which was biopsied. The scope could not be advanced through the stricture. Mucosa of the hepatic flexure, transverse colon, descending colon, sigmoid colon, and rectum appeared normal. Retroflexion was performed in the rectum and no lesions were seen. The patient tolerated the procedure well. IMPRESSION: 1. Narrowing of the ileocolic anastomosis with superficial erosions consistent with recurrent Crohn's disease 2. No residual polyp noted in the hepatic flexure 3. Rest of the colon appeared normal RECOMMENDATIONS: Findings of this examination were discussed with the patient as well as his family. He was advised to have a repeat surveillance colonoscopy in 3 years.. In regards to recurrent Crohn's disease at the anastomosis, he will be followed up in office for further management
[2022-10-21 08:36] VITALS: RESP 18
[2022-10-21 08:51] VITALS: BP 140/92; PULSE 87
== END 2022-10-21 09:14 | disposition home or self-care (01) ==
LOC: ORWHC2ENDO 06:32
PROVIDERS: ATTEND Internal Medicine Gastroenterology
DX: K50.90 Crohn's disease, unspecified, without complications (principal); I10 Essential (primary) hypertension; J45.909 Unspecified asthma, uncomplicated; F12.90 Cannabis use, unspecified, uncomplicated; Z88.0 Allergy status to penicillin; Z91.041 Radiographic dye allergy status; Z79.899 Other long term (current) drug therapy
CPT/HCPCS: 88305; 45380; J2405; J2704